=== PATIENT | male | born 1955 | race Caucasian/White ===

== ENCOUNTER 2019-05-19 15:07 | Emergency (ER) | payer BC ==
--- NOTE | 2019-05-19 15:40 | ER Document Report ---
ED Medical Screen (RME) - General Chief Complaint: Vomiting Stated Complaint: COUGHING UP BLOOD Time Seen by Provider: 05/19/19 15:37 Primary Care Provider: LISETH CANTU FNP [Primary Care Provider] - Follow up as needed Mode of Arrival: Wheelchair Information source: Relative Notes: at bedside giving history as patient seems very fatigued, patient has been coughing up blood for a couple of days now, worse today with a very large blood clot. Patient is never done this before. Patient is on Eliquis for A. fib and has a history of congestive heart failure. He was admitted in December at [facility] and had an endoscopy in February and a colonoscopy which revealed nothing per . TRAVEL OUTSIDE OF THE [place] IN LAST 30 DAYS: No - Related Data Allergies/Adverse Reactions: No Known Allergies Allergy (Verified 05/19/19 15:19) Past Medical History - General Information source: Patient, Relative - Past Medical History Cardiac Medical History: Reports: Hx Hypertension - Immunizations Hx Diphtheria, Pertussis, Tetanus Vaccination: No Review of Systems - Review of Systems Cardiovascular: See HPI Respiratory: See HPI Physical Exam - Vital signs Vitals: Temp Pulse Resp BP Pulse Ox 97.5 F 92 12 94/63 L 94 05/19/19 15:28 05/19/19 15:28 05/19/19 15:28 05/19/19 15:28 05/19/19 15:28 - Notes Notes: PHYSICAL EXAMINATION: GENERAL: Hill, in no acute distress. LUNGS: CTAB and equal. No wheezes rales or rhonchi. Course - Vital Signs Vital signs: Temp Pulse Resp BP Pulse Ox 97.5 F 92 12 94/63 L 94 05/19/19 15:28 05/19/19 15:28 05/19/19 15:28 05/19/19 15:28 05/19/19 15:28 Doctor's Discharge - Discharge Referrals: LISETH CANTU FNP [Primary Care Provider] - Follow up as needed
[2019-05-19 16:40] LABS: ABSOLUTE EOSINOPHILS # (AUTO) 0.1 10^3/uL (0.0-0.6); ABSOLUTE LYMPHOCYTES (AUTO) 0.8 10^3/uL (0.5-4.7); ABSOLUTE MONOCYTES (AUTO) 0.6 10^3/uL (0.1-1.4); ABSOLUTE NEUT (AUTO) 3.7 10^3/uL (1.7-8.2); BASOPHILS % (AUTO) 0.8 % (0-2); EOSINOPHILS % (AUTO) 1.6 % (0-6); HEMOGLOBIN 11.5 g/dL (13.5-17.0); LYMPHOCYTES % (AUTO) 15.3 % (13-45); MEAN CORPUSCULAR HGB CONC 33.6 g/dL (32.0-36.0); MEAN CORPUSCULAR VOLUME 92 fl (80-97); PLATELET COUNT 272 10^3/uL (150-450); RED CELL DISTRIBUTION WIDTH 18.5 % (11.5-14.0); SEGMENTED NEUTROPHILS % (AUTO) 70.3 % (42-78); TOTAL CELLS COUNTED % (AUTO) 100 %; WHITE BLOOD COUNT 5.2 10^3/uL (4.0-10.5)
[2019-05-19 16:45] LABS: INTERNATIONAL RATION (INR) 2.14; PROTHROMBIN TIME 24.3 SEC (11.4-15.4)
[2019-05-19 16:46] LABS: PARTIAL THROMBOPLASTIN TIME 33.8 SEC (23.5-35.8)
[2019-05-19] MEDS ORDERED: NORMAL SALINE 500 ML IV ONE (16:51)
--- NOTE | 2019-05-19 17:08 | RADIOLOGY REPORT (SQ) ---
EXAM DESCRIPTION: CHEST 2 VIEWS COMPLETED DATE/TIME: 05/19/2019 4:59 pm REASON FOR STUDY: coughing up blood clots COMPARISON: 07/27/2013 EXAM PARAMETERS: NUMBER OF VIEWS: two views TECHNIQUE: Digital Frontal and Lateral radiographic views of the chest acquired. RADIATION DOSE: NA LIMITATIONS: none FINDINGS: LUNGS AND PLEURA: Hyperexpansion of the lungs. Chronic pleural thickening. Ill-defined o pacification in both lung bases. MEDIASTINUM AND HILAR STRUCTURES: No masses or contour abnormalities. HEART AND VASCULAR STRUCTURES: Cardiomegaly. Pericardial calcifications. BONES: No acute findings. HARDWARE: None in the chest. OTHER: No other significant finding. IMPRESSION: Cardiomegaly without juventino pulmonary edema. Cannot exclude a limited infiltrate in eith er lower lobe. Chronic lung changes. TECHNICAL DOCUMENTATION: JOB ID: [id number] [employer]- All Rights Reserved Reading location - IP/workstation name: [email or web address]
[2019-05-19 19:03] LABS: ALANINE AMINOTRANSFERASE 18 U/L (21-72); ALBUMIN 3.3 g/dL (3.5-5.0); ALKALINE PHOSPHATASE 220 U/L (38-126); ASPARTATE AMINO TRANSFERASE 30 U/L (17-59); BILIRUBIN,DIRECT 1.1 mg/dL (0.0-0.4); BILIRUBIN,TOTAL 2.1 mg/dL (0.2-1.3); BLOOD UREA NITROGEN 31 mg/dL (7-20); CALCIUM 9.2 mg/dL (8.4-10.2); CHLORIDE 85 mmol/L (98-107); GLUCOSE 109 mg/dL (75-110); TOTAL PROTEIN 8.2 g/dL (6.3-8.2)
[2019-05-19 19:10] LABS: ANION GAP 9 (5-19)
[2019-05-19 19:18] LABS: POTASSIUM 3.3 mmol/L (3.6-5.0)
[2019-05-19 19:20] LABS: CARBON DIOXIDE 40 mmol/L (22-30)
[2019-05-19 20:16] LABS: VENOUS BLOOD BASE EXCESS 13.6 mmol/L; VENOUS BLOOD HCO3 39.3 mmol/L (20-32); VENOUS BLOOD PH 7.47 (7.30-7.42)
--- NOTE | 2019-05-19 20:33 | RADIOLOGY REPORT (SQ) ---
EXAM DESCRIPTION: CT CHEST ANGIOGRAPHY WITHOUT THEN WITH IV CONTRAST COMPLETED DATE/TME: 05/19/2019 16:31 CLINICAL HISTORY: 64 years Male hemoptysis, smoker COMPARISON: None. TECHNIQUE: Contiguous axial images were obtained through the chest during the infusion of IV contrast. Reformatted images obtained. MIP reformatted images obtained. This exam was performed according to our department optimization program which includes automated exposure control, adjustment of the mA and/or kv according to patient size and/or use of iterative reconstruction technique. FINDINGS: The heart is enlarged. There is diffuse calcification of the pericardium. There is left atrial enlargement. Reflux of contrast is present into the inferior vena cava and the hepatic veins. There is calcified pleural plaquing bilaterally which may be related to asbestos-related pleural disease. Other etiology not excluded. Numerous calcified lymph nodes are present in the hilum and mediastinum. Enlarged pretracheal lymph node has a measurement of 2.4 cm short axis. Enlarged subcarinal lymph node has a measurement of 2.5 cm short axis. There is no evidence of pulmonary embolus. Pulmonary arteries are prominent with the left main pulmonary artery measuring 3 cm and the right measuring 2.8 cm. Findings may reflect pulmonary hypertension. Pleural thickening and bilateral pleural fluid collections. Interstitial infiltrate suggesting chronic interstitial infiltrate or fibrosis. Emphysematous changes are present. Scarring or atelectasis in the lung bases. Enlarged liver. Suspect splenic enlargement. 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 Pleural thickening and calcification with associated pleural effusions Enlarged mediastinal and hilar lymph nodes with some foci of calcification. Recommend follow-up Emphysematous change and interstitial infiltrate versus fibrosis. Possibility of developing edema is not excluded. Areas of rounded atelectasis or scarring suggested along the periphery of the chest Mildly enlarged liver and spleen
--- NOTE | 2019-05-19 21:00 | ER Document Report ---
Entered by VALERIE SUERO SCRIBE 05/19/19 1634 Acting as scribe for:PADMINI LAGUERRE DO ED General - General Chief Complaint: Vomiting Stated Complaint: COUGHING UP BLOOD Time Seen by Provider: 05/19/19 15:37 Primary Care Provider: LISETH CANTU FNP [NURSE PRACTITIONER] - Follow up as needed Mode of Arrival: Wheelchair Notes: Patient is a 64-year-old male presenting to the emergency department with complaint of spitting up blood, when asked further clarify he states that he has been coughing up a small amount of blood for the past 2 weeks but worsened today , today he has been coughing up large blood clots. Patient states that he is had his cough for some time now, is gradually getting worse especially since about 2 weeks ago. Patient was at [facility] in December and had a large work-up but states he did not have a CT scan at that time. Patient has had several outpatient visits since then. TRAVEL OUTSIDE OF THE [place] IN LAST 30 DAYS: No - Related Data Allergies/Adverse Reactions: tramadol Allergy (Verified 05/19/19 15:45) VOMITING Past Medical History - General Information source: Patient, Relative - Social History Smoking Status: Former Smoker - Quit in December. Cigarette use (# per day): No Chew tobacco use (# tins/day): No Frequency of alcohol use: None Drug Abuse: None Family History: Hypertension Patient has suicidal ideation: No Patient has homicidal ideation: No - Past Medical History Cardiac Medical History: Reports: Hx Congestive Heart Failure, Hx Hypertension - Immunizations Hx Diphtheria, Pertussis, Tetanus Vaccination: No Review of Systems - Review of Systems Constitutional: See HPI, Weakness, Weight loss - Unintentional weight loss EENT: No symptoms reported Cardiovascular: No symptoms reported Respiratory: See HPI, Cough, Hemoptysis Gastrointestinal: No symptoms reported Genitourinary: No symptoms reported Male Genitourinary: No symptoms reported Musculoskeletal: See HPI, Leg swelling - Chronic leg swelling right greater than left which has been improving over the past few days. Skin: No symptoms reported Hematologic/Lymphatic: No symptoms reported Neurological/Psychological: No symptoms reported -: Yes All other systems reviewed and negative Physical Exam - Vital signs Vitals: Temp Pulse Resp BP Pulse Ox 97.5 F 92 12 94/63 L 94 05/19/19 15:28 05/19/19 15:28 05/19/19 15:28 05/19/19 15:28 05/19/19 15:28 Interpretation: Hypotensive - Notes Notes: PHYSICAL EXAM GENERAL: Alert, interacts well. No acute distress. Cachectic HEAD: Normocephalic, atraumatic. EYES: Pupils equal, round, and reactive to light. Extraocular movements intact. ENT: Oral mucosa dry, tongue midline. NECK: Full range of motion. Supple. Trachea midline. LUNGS: Crackles present at the bases bilaterally. Diminished lung sounds on the right side. No wheezes or rhonchi. No respiratory distress. HEART: Regular rate and rhythm. No murmurs, gallops, or rubs. ABDOMEN: Soft, non-tender. Non-distended. Bowel sounds present in all 4 quadrants. No guarding, rigidity, or rebound. EXTREMITIES: Moves all 4 extremities spontaneously. +1 pitting edema left lower extremity. +2 pitting edema right lower extremity. Radial and dorsalis pedis pulses 2/4 bilaterally. No cyanosis. NEUROLOGICAL: Alert and oriented x3. Normal speech. Biceps and patellar DTRs 2+ bilaterally. PSYCH: Normal affect, normal mood. SKIN: Warm, dry. Slightly jaundiced. Course - Re-evaluation Re-evalutation: 05/19/19 20:11 CBC shows mild anemia with a hemoglobin 11.5, platelets normal, INR prolonged at 2.14, CMP shows slight low sodium 134, slight low potassium at 3.3, CO2 elevated at 40, total and direct bilirubin both elevated at 2.1 and 1.1 respectively, alkaline phosphatase elevated at 220, chest x-ray shows cardiomegaly without juventino pulmonary edema, cannot exclude a limited infiltrate in either lower lobe. Patient has been somewhat hypotensive so he is being gently hydrated with 500 mL's of normal saline now that we know he does not emergently need a blood transfusion despite this hemoptysis. CT angiogram of the chest has been performed to look for pulmonary embolism causing his hemoptysis or possibly a tumor. I am concerned for the possibility of cancer given his cachexia, unintentional weight loss and smoking history. 05/19/19 20:12 Since arriving patient has become hypoxic into the 80s so he has been started on 2-1/2 L via nasal cannula and doing well. 05/19/19 20:56 CT angiogram of the chest shows no evidence of pulmonary embolus, there is diffuse calcification of the pericardium with left atrial enlargement, calcified pleural plaquing bilaterally may be related to asbestos-related pleural disease, there are some enlarged peritracheal lymph nodes, chronic interstitial lung disease. Family was advised of the importance of following up with primary care physician and pulmonology as an outpatient for these enlarged lymph nodes. They are aware that I am afraid that the patient may have cancer that I just cannot find at this time. Patient's mild hypoxia has resolved, I have taken him off of oxygen and the lowest he is gotten is 91% on room air. Patient does not walk more than 5 maybe 10 steps at home. Family is not interested in a trial of ambulation. Family will follow-up as an outpatient. Discharged home. - Vital Signs Vital signs: Temp Pulse Resp BP Pulse Ox 97.5 F 92 12 94/63 L 94 05/19/19 15:28 05/19/19 15:28 05/19/19 15:28 05/19/19 15:28 05/19/19 15:28 - Laboratory Result Diagrams: 05/19/19 16:05 05/19/19 18:35 Laboratory results interpreted by me: 05/19/19 05/19/19 05/19/19 16:05 16:05 18:35 RBC 3.70 L Hgb 11.5 L Hct 34.0 L RDW 18.5 H PT 24.3 H VBG pH VBG HCO3 Sodium 134.0 L Potassium 3.3 L Chloride 85 L Carbon Dioxide 40 H* BUN 31 H Total Bilirubin 2.1 H Direct Bilirubin 1.1 H ALT 18 L Alkaline Phosphatase 220 H Albumin 3.3 L 05/19/19 19:59 RBC Hgb Hct RDW PT VBG pH 7.47 H VBG HCO3 39.3 H Sodium Potassium Chloride Carbon Dioxide BUN Total Bilirubin Direct Bilirubin ALT Alkaline Phosphatase Albumin Discharge - Discharge Clinical Impression: Hemoptysis, Unintentional weight loss Condition: Stable Disposition: HOME, SELF-CARE Additional Instructions: Hemoptysis Hemoptysis (coughing up blood) can occur with many different diseases. Most commonly, it's due to an infection such as bronchitis. Today I do not see any signs of infection. You do have some enlarged lymph nodes and calcified lymph nodes on your CAT scan, these need to be followed up as an outpatient to rule out cancer. You did not have significant anemia today, this means you did not need to have new blood transfusion. It is very important that you follow-up with coat presser as an outpatient. I have given you Dr. Rosario's contact information. Please return if you cough up a couple or more of blood within approximately 1 hour. Referrals: LISETH CANTU FNP [NURSE PRACTITIONER] - Follow up as needed PEÑA OLIVER MD [Primary Care Provider] - Follow up as needed WILSON ROSARIO MD [ACTIVE STAFF] - Follow up as needed I personally performed the services described in the documentation, reviewed and edited the documentation which was dictated to the scribe in my presence, and it accurately records my words and actions.
[2019-05-19 21:35] VITALS: BP 101/71
== END 2019-05-19 21:56 | disposition home or self-care (01) ==
LOC: ER 15:07
DX: R04.2 Hemoptysis (principal); R11.10 Vomiting, unspecified; M79.89 Other specified soft tissue disorders; Z87.891 Personal history of nicotine dependence; I50.9 Heart failure, unspecified; I11.0 Hypertensive heart disease with heart failure
CPT/HCPCS: 99285; 86900; 86901; 36415; 86850; 85025; 85610; 85730; 80053; 82803; 71046; 71275; J7040

== ENCOUNTER 2019-05-23 23:05 | Inpatient (IN) | payer BC ==
[2019-05-23] MEDS ORDERED: RINGERS SOLUTION,LACTATED 1,000 ML IV ONE (23:09)
[2019-05-23] MEDS ORDERED: VANCOMYCIN HCL INJ 1000 MG VIAL IV ONE (23:23)
[2019-05-23 23:29] LABS: HEMATOCRIT 33.6 % (37.9-51.0); HEMOGLOBIN 11.1 g/dL (13.5-17.0); MEAN CORPUSCULAR HEMOGLOBIN 30.6 pg (27.0-33.4); MEAN CORPUSCULAR VOLUME 93 fl (80-97); PLATELET COUNT 185 10^3/uL (150-450); RED BLOOD COUNT 3.63 10^6/uL (4.35-5.55); RED CELL DISTRIBUTION WIDTH 18.3 % (11.5-14.0); VENOUS BLOOD BASE EXCESS 8.6 mmol/L; VENOUS BLOOD HCO3 33.5 mmol/L (20-32); VENOUS BLOOD PCO2 47.9 mmHg (35-63); VENOUS BLOOD PH 7.46 (7.30-7.42); WHITE BLOOD COUNT 13.5 10^3/uL (4.0-10.5)
[2019-05-23] MEDS: NOREPINEPHRINE BITARTRATE INJ/PF 4 MG/4 ML SDV IV ONE (23:34)
[2019-05-23] MEDS: DEXTROSE 5%-WATER 250 ML with NOREPINEPHRINE BITARTRATE 4 MG IV PRN ×2 (23:34)
[2019-05-23 23:43] LABS: ABSOLUTE LYMPHOCYTES# (MANUAL) 0.5 10^3/uL (0.5-4.7); BAND NEUTROPHILS % (MANUAL) 7 % (3-5); BASOPHILS % (MANUAL) 0 % (0-2); EOSINOPHILS % (MANUAL) 0 % (0-6); LYMPHOCYTES % (MANUAL) 4 % (13-45); MONOCYTES % (MANUAL) 0 % (3-13); SEGMENTED NEUTROPHILS % (MAN) 89 % (42-78); TOTAL CELLS COUNTED 100
[2019-05-23 23:44] LABS: PLATELET COMMENT ADEQUATE
[2019-05-23 23:45] LABS: ALANINE AMINOTRANSFERASE 24 U/L (21-72); ALKALINE PHOSPHATASE 222 U/L (38-126); ANION GAP 8 (5-19); ANISOCYTOSIS 2+; ASPARTATE AMINO TRANSFERASE 47 U/L (17-59); BILIRUBIN,DIRECT 1.5 mg/dL (0.0-0.4); BILIRUBIN,TOTAL 2.5 mg/dL (0.2-1.3); BLOOD UREA NITROGEN 43 mg/dL (7-20); CARBON DIOXIDE 32 mmol/L (22-30); CHLORIDE 97 mmol/L (98-107); GLUCOSE 72 mg/dL (75-110); HYPOCHROMASIA SLIGHT; POIKILOCYTOSIS 1+; POLYCHROMASIA SLIGHT; POTASSIUM 3.9 mmol/L (3.6-5.0); TOTAL PROTEIN 7.6 g/dL (6.3-8.2)
[2019-05-23] MEDS ORDERED: CEFTRIAXONE 1 GM/D5W RTU 1 GM/50 ML RTUPB IV ONE (23:45)
--- NOTE | 2019-05-23 23:47 | ER Document Report ---
ED General - General Stated Complaint: CHEST PAIN Time Seen by Provider: 05/23/19 23:06 Primary Care Provider: PEÑA OLIVER MD [Primary Care Provider] - Follow up as needed Mode of Arrival: Medic Information source: Patient, Relative, Emergency Med Personnel Cannot obtain history due to: Altered mental status Notes: 64-year-old male with atrial fibrillation, hypertension, congestive heart failure presents via EMS from home with concern for altered mental status per the . EMS reports that upon their arrival patient was febrile with a temperature of 103.7. reports that the patient was seen in the emergency department earlier in the week for hemoptysis. She reports that the patient has not been coughing up blood over the last few days. She states that she was gone from the house all day when she returned the patient was confused. TRAVEL OUTSIDE OF THE [place] IN LAST 30 DAYS: No - HPI Onset: Just prior to arrival Onset/Duration: Sudden Quality of pain: No pain Severity: None Pain Level: Denies Associated symptoms: Nonproductive cough, Fever. denies: Diarrhea, Nausea, Vomiting Exacerbated by: Denies Relieved by: Denies Similar symptoms previously: No Recently seen / treated by doctor: Yes - Related Data Allergies/Adverse Reactions: tramadol Allergy (Verified 05/19/19 15:45) VOMITING Past Medical History - General Information source: Relative, Emergency Med Personnel - Social History Smoking Status: Current Every Day Smoker Cigarette use (# per day): Yes - 20 Frequency of alcohol use: None Drug Abuse: None Lives with: Spouse/Significant other Family History: Hypertension - Past Medical History Cardiac Medical History: Reports: Hx Congestive Heart Failure, Hx Hypertension Renal/ Medical History: Denies: Hx Peritoneal Dialysis - Immunizations Hx Diphtheria, Pertussis, Tetanus Vaccination: No Review of Systems - Review of Systems -: Yes ROS unobtainable due to patient's medical condition Physical Exam - Vital signs Vitals: Resp Pulse Ox 34 H 92 05/23/19 23:10 05/23/19 23:10 - Notes Notes: PHYSICAL EXAMINATION: GENERAL: Ill-appearing, cachectic, mild distress HEAD: Atraumatic, normocephalic. EYES: Pupils equal round and reactive to light, extraocular movements intact, sclera anicteric, conjunctiva are normal. ENT: Nares patent, oropharynx clear without exudates. Dry mucous membranes. NECK: Normal range of motion, supple without lymphadenopathy LUNGS: Coarse breath sounds bilaterally. Increased work of breathing, accessory muscle use. HEART: Tachycardic, regular rhythm. ABDOMEN: Soft, nontender, nondistended abdomen. No guarding, no rebound. No m asses appreciated. Musculoskeletal: Normal range of motion, 1+ edema. No cyanosis. NEUROLOGICAL: GCS 14 PSYCH: Confused. SKIN: Darkened discoloration of the lower extremities bilaterally. 1+ edema Course - Re-evaluation Re-evalutation: 05/24/19 04:04 Laboratory 05/23/19 05/23/19 05/23/19 23:10 23:10 23:10 WBC 13.5 H RBC 3.63 L Hgb 11.1 L Hct 33.6 L MCV 93 MCH 30.6 MCHC 33.0 RDW 18.3 H Plt Count 185 Total Counted 100 Seg Neutrophils % Not Reportable Seg Neuts % (Manual) 89 H Band Neutrophils % 7 H Lymphocytes % Not Reportable Lymphocytes % (Manual) 4 L Monocytes % Not Reportable Monocytes % (Manual) 0 L Eosinophils % Not Reportable Eosinophils % (Manual) 0 Basophils % Not Reportable Basophils % (Manual) 0 Absolute Neutrophils Not Reportable Abs Neuts (Manual) 13.0 H Absolute Lymphocytes Not Reportable Abs Lymphs (Manual) 0.5 Absolute Monocytes Not Reportable Abs Monocytes (Manual) 0.0 L Absolute Eosinophils Not Reportable Absolute Eos (Manual) 0.0 Absolute Basophils Not Reportable Abs Basophils (Manual) 0.0 Platelet Comment ADEQUATE Polychromasia SLIGHT Hypochromasia SLIGHT Poikilocytosis 1+ Anisocytosis 2+ PT 35.2 H INR 3.41 VBG pH VBG pCO2 VBG HCO3 VBG Base Excess Sodium 137.0 Potassium 3.9 Chloride 97 L Carbon Dioxide 32 H Anion Gap 8 BUN 43 H Creatinine 1.43 H Est GFR ( Amer) > 60 Est GFR (Non-Af Amer) 50 L Glucose 72 L Lactic Acid Calcium 9.0 Total Bilirubin 2.5 H Direct Bilirubin 1.5 H Neonat Total Bilirubin Not Reportable Neonat Direct Bilirubin Not Reportable Neonat Indirect Bili Not Reportable AST 47 ALT 24 Alkaline Phosphatase 222 H Troponin I NT-Pro-B Natriuret Pep Total Protein 7.6 Albumin 3.0 L Urine Color Urine Appearance Urine pH Ur Specific Fellows Urine Protein Urine Glucose (UA) Urine Ketones Urine Blood Urine Nitrite Urine Bilirubin Urine Urobilinogen Ur Leukocyte Esterase Urine WBC (Auto) Urine RBC (Auto) U Hyaline Cast (Auto) Squamous Epi Cells Auto Urine Mucus (Auto) Urine Ascorbic Acid 05/23/19 05/23/19 05/23/19 23:10 23:10 23:10 WBC RBC Hgb Hct MCV MCH MCHC RDW Plt Count Total Counted Seg Neutrophils % Seg Neuts % (Manual) Band Neutrophils % Lymphocytes % Lymphocytes % (Manual) Monocytes % Monocytes % (Manual) Eosinophils % Eosinophils % (Manual) Basophils % Basophils % (Manual) Absolute Neutrophils Abs Neuts (Manual) Absolute Lymphocytes Abs Lymphs (Manual) Absolute Monocytes Abs Monocytes (Manual) Absolute Eosinophils Absolute Eos (Manual) Absolute Basophils Abs Basophils (Manual) Platelet Comment Polychromasia Hypochromasia Poikilocytosis Anisocytosis PT INR VBG pH 7.46 H VBG pCO2 47.9 VBG HCO3 33.5 H VBG Base Excess 8.6 Sodium Potassium Chloride Carbon Dioxide Anion Gap BUN Creatinine Est GFR ( Amer) Est GFR (Non-Af Amer) Glucose Lactic Acid 2.9 H Calcium Total Bilirubin Direct Bilirubin Neonat Total Bilirubin Neonat Direct Bilirubin Neonat Indirect Bili AST ALT Alkaline Phosphatase Troponin I 0.129 NT-Pro-B Natriuret Pep 3970 H Total Protein Albumin Urine Color Urine Appearance Urine pH Ur Specific Fellows Urine Protein Urine Glucose (UA) Urine Ketones Urine Blood Urine Nitrite Urine Bilirubin Urine Urobilinogen Ur Leukocyte Esterase Urine WBC (Auto) Urine RBC (Auto) U Hyaline Cast (Auto) Squamous Epi Cells Auto Urine Mucus (Auto) Urine Ascorbic Acid 05/23/19 05/24/19 23:40 01:50 WBC RBC Hgb Hct MCV MCH MCHC RDW Plt Count Total Counted Seg Neutrophils % Seg Neuts % (Manual) Band Neutrophils % Lymphocytes % Lymphocytes % (Manual) Monocytes % Monocytes % (Manual) Eosinophils % Eosinophils % (Manual) Basophils % Basophils % (Manual) Absolute Neutrophils Abs Neuts (Manual) Absolute Lymphocytes Abs Lymphs (Manual) Absolute Monocytes Abs Monocytes (Manual) Absolute Eosinophils Absolute Eos (Manual) Absolute Basophils Abs Basophils (Manual) Platelet Comment Polychromasia Hypochromasia Poikilocytosis Anisocytosis PT INR VBG pH VBG pCO2 VBG HCO3 VBG Base Excess Sodium Potassium Chloride Carbon Dioxide Anion Gap BUN Creatinine Est GFR ( Amer) Est GFR (Non-Af Amer) Glucose Lactic Acid Calcium Total Bilirubin Direct Bilirubin Neonat Total Bilirubin Neonat Direct Bilirubin Neonat Indirect Bili AST ALT Alkaline Phosphatase Troponin I 0.186 NT-Pro-B Natriuret Pep Total Protein Albumin Urine Color DARK YELLOW Urine Appearance SLIGHTLY-CLOUDY Urine pH 5.0 Ur Specific Fellows 1.015 Urine Protein NEGATIVE Urine Glucose (UA) NEGATIVE Urine Ketones TRACE H Urine Blood NEGATIVE Urine Nitrite NEGATIVE Urine Bilirubin SMALL H Urine Urobilinogen 4.0 H Ur Leukocyte Esterase NEGATIVE Urine WBC (Auto) 3 Urine RBC (Auto) 2 U Hyaline Cast (Auto) 22 Squamous Epi Cells Auto <1 Urine Mucus (Auto) RARE Urine Ascorbic Acid NEGATIVE Chest X-Ray 05/23/19 23:09 IMPRESSION: Patchy bilateral opacities may relate to developing pneumonia. Head CT 05/23/19 23:26 IMPRESSION: No acute intracranial abnormality. Temp Pulse Resp BP Pulse Ox 99.0 F 92 24 H 96/52 L 97 05/24/19 03:21 05/24/19 01:05 05/24/19 03:21 05/24/19 03:21 05/24/19 03:21 05/24/19 04:05 64-year-old male with a history of CHF, hypertension, atrial fibrillation presents via EMS from home with complaint of altered mental status. Vital signs reviewed upon arrival and patient is febrile, tachycardic and hypotensive. Patient is in mild distress and has increased work of breathing. Patient is alert and oriented x1 which is not the patient's baseline. Resuscitation was initiated immediately upon arrival. 2 large bore IVs were placed and fluid resuscitation initiated. Bedside ultrasound was performed and showed no pericardial effusion but did show diffuse B-lines consistent with interstitial edema. Chest x-ray was obtained which showed patchy bilateral opacities which I believed to represent pneumonia. Patient did receive vancomycin, ceftriaxone. Patient's blood pressure still remained low despite fluid administration so Lev ophed was initiated at 5 mcg. Previous medical records and nursing notes reviewed. Patient was seen here in the emergency department 5 days prior to arrival for hemoptysis. CTA was performed at that time and showed no evidence of pulmonary embolism but did show cardiac enlargement with pericardial calcification and constrictive pericarditis as well as bilateral pleural effusions and multiple areas of enlarged lymph nodes. The physician at that time did express her concern for underlying cancer to the patient and his . Patient does have a almost 50-year smoking history and reports unintentional weight loss. Patient's blood pressure upon admission is 95/60 with a heart rate of 91. Patient was placed on BiPAP and he has been tolerating this well. Patient and were agreeable with admission at this time. CBC does show a leukocytosis with a bandemia. Lactate is elevated at 2.9. Troponin is elevated but patient now denies chest pain. This is likely due to patient's sepsis. Patient does have an elevated BNP. VBG unremarkable. Patient will be admitted to the ICU by Dr. Harper. Patient's primary care physician is Dr. Oliver. - Vital Signs Vital signs: Temp Pulse Resp BP Pulse Ox 99.0 F 92 24 H 96/52 L 97 05/24/19 03:21 05/24/19 01:05 05/24/19 03:21 05/24/19 03:21 05/24/19 03:21 - Laboratory Result Diagrams: 05/23/19 23:10 05/23/19 23:10 Laboratory results interpreted by me: 05/23/19 05/23/19 05/23/19 23:10 23:10 23:10 WBC 13.5 H RBC 3.63 L Hgb 11.1 L Hct 33.6 L RDW 18.3 H Seg Neuts % (Manual) 89 H Band Neutrophils % 7 H Lymphocytes % (Manual) 4 L Monocytes % (Manual) 0 L Abs Neuts (Manual) 13.0 H Abs Monocytes (Manual) 0.0 L PT 35.2 H VBG pH VBG HCO3 Chloride 97 L Carbon Dioxide 32 H BUN 43 H Creatinine 1.43 H Est GFR (Non-Af Amer) 50 L Glucose 72 L Lactic Acid Total Bilirubin 2.5 H Direct Bilirubin 1.5 H Alkaline Phosphatase 222 H NT-Pro-B Natriuret Pep Albumin 3.0 L Urine Ketones Urine Bilirubin Urine Urobilinogen 05/23/19 05/23/19 05/23/19 23:10 23:10 23:10 WBC RBC Hgb Hct RDW Seg Neuts % (Manual) Band Neutrophils % Lymphocytes % (Manual) Monocytes % (Manual) Abs Neuts (Manual) Abs Monocytes (Manual) PT VBG pH 7.46 H VBG HCO3 33.5 H Chloride Carbon Dioxide BUN Creatinine Est GFR (Non-Af Amer) Glucose Lactic Acid 2.9 H Total Bilirubin Direct Bilirubin Alkaline Phosphatase NT-Pro-B Natriuret Pep 3970 H Albumin Urine Ketones Urine Bilirubin Urine Urobilinogen 05/23/19 23:40 WBC RBC Hgb Hct RDW Seg Neuts % (Manual) Band Neutrophils % Lymphocytes % (Manual) Monocytes % (Manual) Abs Neuts (Manual) Abs Monocytes (Manual) PT VBG pH VBG HCO3 Chloride Carbon Dioxide BUN Creatinine Est GFR (Non-Af Amer) Glucose Lactic Acid Total Bilirubin Direct Bilirubin Alkaline Phosphatase NT-Pro-B Natriuret Pep Albumin Urine Ketones TRACE H Urine Bilirubin SMALL H Urine Urobilinogen 4.0 H - Diagnostic Test Radiology reviewed: Image reviewed, Reports reviewed - EKG Interpretation by Me Rate: Tachycardia Rhythm: A.Fib [place]/QRS: Right axis deviation When compared to previous EKG there are: No significant change Critical Care Note - Critical Care Note Total time excluding time spent on procedures (mins): 45 - Minutes of critical care time spent in direct contact evaluating and reevaluating the patient, treating symptoms, reviewing labs and studies and speaking with family and cons ultants excluding any procedures Discharge - Discharge Clinical Impression: Tobacco dependence, Unintentional weight loss, Elevated troponin, Lactic acidosis Sepsis Qualifiers: Sepsis type: sepsis due to unspecified organism Qualified Code(s): A41.9 - Sep sis, unspecified organism Pneumonia Qualifiers: Pneumonia type: due to unspecified organism Laterality: bilateral Lung location: unspecified part of lung Qualified Code(s): J18.9 - Pneumonia, unspecified organism Hypotension Qualifiers: Hypotension type: unspecified hypotension type Qualified Code(s): I95.9 - Hypotension, unspecified Altered mental status Qualifiers: Altered mental status type: unspecified Qualified Code(s): R41.82 - Altered mental status, unspecified Leukocytosis Qualifiers: Leukocytosis type: bandemia Qualified Code(s): D72.825 - Bandemia Condition: Fair Disposition: ADMITTED INPATIENT Admitting Provider: [facility] Unit Admitted: ICU Referrals: PEÑA OLIVER MD [Primary Care Provider] - Follow up as needed
--- NOTE | 2019-05-23 23:48 | RADIOLOGY REPORT (SQ) ---
CLINICAL HISTORY: hypoxia COMPARISON: May 19, 2019 CT. TECHNIQUE: XR CHEST 1 VIEW 05/23/2019 11:09 PM CDT FINDINGS: The heart is enlarged. There are calcifications of the pericardium. There are patchy opacities throughout both lungs. There are bilateral pleural effusions. There is no pneumothorax. There are no acute osseous findings. IMPRESSION: Patchy bilateral opacities may relate to developing pneumonia.
[2019-05-23 23:51] LABS: INTERNATIONAL RATION (INR) 3.41; PROTHROMBIN TIME 35.2 SEC (11.4-15.4)
[2019-05-24] MEDS ORDERED: IPRATROPIUM/ALBUTEROL 0.5-2.5 MG/3 ML AMPUL NEB ONE (00:03)
[2019-05-24] MEDS ORDERED: METHYLPREDNISOLONE INJ 125 MG/2 ML SDV IV ONE (00:03)
[2019-05-24] MEDS ORDERED: FUROSEMIDE INJ/PF 20 MG/2 ML SDV IV ONE (00:04)
[2019-05-24] MEDS ORDERED: NORMAL SALINE 1000 ML 1,000 ML IV ONE (00:04)
[2019-05-24] MEDS ORDERED: KETOROLAC TROMETHAMINE INJ/PF 30 MG/1 ML SDV IV ONE (00:06)
[2019-05-24] MEDS ORDERED: KETOROLAC TROMETHAMINE INJ/PF 30 MG/1 ML SDV ONE (00:07)
[2019-05-24 00:08] LABS: TROPONIN I 0.129 ng/mL
[2019-05-24] MEDS: NOREPINEPHRINE BITARTRATE INJ/PF 4 MG/4 ML SDV IV ONE (00:26)
[2019-05-24 00:36] LABS: APPEARANCE,URINE SLIGHTLY-CLOUDY; BILIRUBIN,URINE SMALL (NEGATIVE); COLOR,URINE DARK YELLOW; GLUCOSE, URINE NEGATIVE (NEGATIVE); KETONES,URINE TRACE mg/dL (NEGATIVE); LEUKOCYTE ESTERASE,URINE NEGATIVE (NEGATIVE); NITRITE,URINE NEGATIVE (NEGATIVE); PROTEIN,URINE NEGATIVE (NEGATIVE); URINE SPECIFIC GRAVITY 1.015
--- NOTE | 2019-05-24 01:36 | RADIOLOGY REPORT (SQ) ---
CT head without contrast on 05/24/2019 at 1:03 AM CLINICAL INDICATION: Altered mental status TECHNIQUE: Multiple axial images are obtained throughout the head without the administration of contrast. This exam was performed according to our departmental dose-optimization program, which includes automated exposure control, adjustment of the mA and/or kV according to patient size and/or use of iterative reconstruction technique. Total DLP is 963.96 mGy*cm. COMPARISON: None FINDINGS: There is no hydrocephalus. There is no CT evidence of acute infarct. There is no hemorrhage. There are no abnormal extra-axial fluid collections. There is no mass, mass effect or midline shift. No bony abnormality is noted. IMPRESSION: No acute intracranial abnormality.
[2019-05-24] MEDS ORDERED: RINGERS SOLUTION,LACTATED 1,000 ML IV PRN (03:54)
[2019-05-24] MEDS ORDERED: DEXTROSE 5%-WATER 250 ML with PHENYLEPHRINE HCL 40 MG IV PRN ×2 (04:01)
[2019-05-24] MEDS ORDERED: PIPERACILLIN/TAZOBACTAM 4.5 GM VIAL IV PRN (04:07)
[2019-05-24 04:36] LABS: INTERNATIONAL RATION (INR) 3.36; PROTHROMBIN TIME 34.8 SEC (11.4-15.4)
[2019-05-24 04:37] LABS: PARTIAL THROMBOPLASTIN TIME 43.3 SEC (23.5-35.8)
[2019-05-24 04:51] LABS: PHOSPHORUS 3.8 mg/dL (2.5-4.5)
[2019-05-24 05:07] LABS: FREE T4 (FREE THYROXINE) 2.18 ng/dL (0.78-2.19)
[2019-05-24 05:38] LABS: URINE AMPHETAMINES SCREEN NEGATIVE; URINE BARBITURATES SCREEN NEGATIVE; URINE BENZODIAZEPINES SCREEN NEGATIVE; URINE COCAINE SCREEN NEGATIVE; URINE MARIJUANA (THC) SCREEN NEGATIVE; URINE METHADONE SCREEN NEGATIVE; URINE PHENCYCLIDINE SCREEN NEGATIVE
[2019-05-24 05:56] LABS: CREATINE KINASE MB 0.77 ng/mL (<4.55); TROPONIN I 0.208 ng/mL
[2019-05-24] MEDS ORDERED: PIPERACILLIN SODIUM/TAZOBACTAM 4.5 GM in NORMAL SALINE 100 ML IV SCH (06:00)
--- NOTE | 2019-05-24 06:19 | RADIOLOGY REPORT (SQ) ---
EXAM: CT chest without IV contrast CLINICAL DATA: 64-year-old male with suspected pneumonia TECHNICAL DATA: Axial CT imaging of the chest was performed without intravenous contrast. Sagittal and coronal reconstructed images were then performed. The CT study is performed according to ALARA (as low as reasonably achievable) or ALARA/IMAGE GENTLY, with automatic adjustment of mA and/or kV according to patient size. Performed on: 05/24/2019 at 5:41 AM Comparison: CT chest performed on 05/19/2019. FINDINGS: CT CHEST: Lungs: The lungs are hyperinflated. There is calcified pleural plaques bilaterally which may be due to asbestos related pleural disease. There is chronic pleural thickening and there is mild patchy bibasilar opacification similar when compared to the prior study which may be secondary to fibrosis and/or atelectasis. No new focal parenchymal abnormalities are identified. There is no evidence of a pneumothorax. No definite pleural effusion identified. Heart: The heart is enlarged. Again demonstrated is extensive pericardial calcification and marked enlargement of the left atrium. There is no pericardial effusion. Mediastinum: Again demonstrated is enlargement of the pulmonary artery trunk and main pulmonary arteries relative to the thoracic aorta. Underlying pulmonary artery hypertension is a consideration. There are atherosclerotic calcifications along the thoracic aorta. Bones:No acute osseous abnormalities are identified. Soft tissues:No focal soft tissue abnormalities are identified. Lymphadenopathy: Again demonstrated is an enlarged partially calcified pretracheal lymph node as well as multiple additional partially calcified mediastinal and hilar lymph nodes. Upper abdomen: No acute abnormalities are identified. IMPRESSION: 1. Overall, no significant change when compared to the prior study performed on 05/19/2019. 2. Bilateral pleural calcification and pleural thickening which may be due to underlying asbestos-related pleural disease. 3. Patchy bibasilar opacification likely due to scarring and/or atelectasis. No new infiltrate is identified since the prior study. 4. 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 There is also cardiomegaly with marked left atrial enlargement. 5. Partially calcified mediastinal and hilar lymph nodes. 6. Hyperinflation of the lungs.
[2019-05-24 06:31] LABS: ARTERIAL BLOOD BASE EXCESS 3.1 mmol/L; ARTERIAL BLOOD H2CO3 1.39 mmol/L (1.05-1.35); ARTERIAL BLOOD HCO3 28.4 mmol/L (20-24); ARTERIAL BLOOD O2 SATURATION 98.3 % (94-98); ARTERIAL BLOOD PCO2 46.1 mmHg (35-45); ARTERIAL BLOOD PH 7.41 (7.35-7.45); ARTERIAL BLOOD PO2 119.6 mmHg (80-100); ARTERIAL BLOOD TOTAL CO2 29.8 mmol/L (23-27)
[2019-05-24 06:37] LABS: ARTERIAL BLOOD FIO2 30%
[2019-05-24] MEDS ORDERED: NOREPINEPHRINE BITARTRATE INJ/PF 4 MG/4 ML SDV IV ONE (07:39)
[2019-05-24] MEDS: DEXTROSE 5%-WATER 250 ML with NOREPINEPHRINE BITARTRATE 4 MG IV PRN ×6 (07:46→21:00)
--- NOTE | 2019-05-24 10:38 | EKG REPORT ---
SEVERITY:- ABNORMAL ECG - ATRIAL FIBRILLATION ABERRANT COMPLEX, POSSIBLY SUPRAVENTRICULAR RIGHT AXIS DEVIATION : Confirmed by: Eamon Fulton 24-May-2019 10:37:27
[2019-05-24 10:49] LABS: CREATINE KINASE MB 0.94 ng/mL (<4.55)
[2019-05-24 10:56] LABS: TROPONIN I 0.148 ng/mL
[2019-05-24] MEDS: PIPERACILLIN SODIUM/TAZOBACTAM 4.5 GM in NORMAL SALINE 100 ML IV SCH ×3 (11:10→20:54)
--- NOTE | 2019-05-24 12:03 | PDOC H&P ---
History of Present Illness Admission Date/PCP: 05/24/19 04:11 PEÑA OLIVER MD History of Present Illness: ZACH MIRANDA SR is a 64 year old male he came to the emergency room last night with his family for evaluation of altered mental status, fever with a temperature of 103.7. 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 also found was numerous calcified lymph nodes in the area of the mediastinum, enlarged subcarinal lymph node there was no pulmonary embolus there was interstitial infiltrate that suggest chronic interstitial fibrosis also severe emphysema ,in the emergency room at the time he was evaluated and discharged for follow-up with pulmonary patient presented with sepsis picture with fever low, blood pressure, leukocytosis ,lactic acidosis CT chest without contrast was obtained, it demonstrated hyperinflated lung also found was calcified pleural plaque, chronic pleural thickening overall no change from the last CT chest angiography that was done on 05/19/2019 there was no infiltrate to suggest pneumonia no history could be obtained from this patient because he is obtunded, respiratory is supported with noninvasive positive pressure ventilation, BiPAP. Patient's and children also admitted to history of unintentional weight loss. I had a long discussion with patient's family about prognosis and patient's condition. The urine dipstick suggest pyuria he has sepsis picture but I am not sure of the source of the infection, the CT chest did not demonstrate any new infiltrate that would suggest pneumonia, the urinalysis is not overly abnormal, the abdomen is soft, patient is a heavy smoker, cannot completely rule out endobronchial lesion, endobronchial cancer, the impression I got from the family is that they do not want aggressive therapeutic option, is a DNR status at this time, we will consult with pulmonary. The also gives the impression that the blood pressure has been low for a long time, he has acute kidney injury Past Medical History Cardiac Medical History: Reports: Atrial Fibrillation, Congestive Heart Failure, Hypertension Pulmonary Medical History: Reports: Bronchitis, Chronic Obstructive Pulmonary Disease (COPD), Respiratory Failure Social History Lives with: Spouse/Significant other Smoking Status: Current Every Day Smoker Cigarettes Packs Per Day: 1 Frequency of Alcohol Use: None Hx Recreational Drug Use: No Family History Family History: Hypertension Parental Family History Reviewed: Yes Children Family History Reviewed: Yes Sibling(s) Family History Reviewed.: Yes Medication/Allergy Home Medications: Apixaban [Eliquis 5 mg Tablet] 5 mg PO BID 05/24/19 Cholecalciferol (Vitamin D3) [D3-2000] 2,000 unit PO DAILY 05/24/19 Flecainide Acetate [Tambocor 100 Mg Tablet] 50 mg PO Q12H 05/24/19 Furosemide [Lasix 40 mg Tablet] 40 mg PO BID 05/24/19 Metolazone [Zaroxolyn 5 Mg Tablet] 5 mg PO BID 05/24/19 Metoprolol Succinate [Toprol Xl 25 mg Tab.sr] 12.5 mg PO DAILY 05/24/19 Omeprazole 40 mg PO DAILY 05/24/19 Potassium Chloride [Klor-Con M20] 40 meq PO BID 05/24/19 Allergies/Adverse Reactions: tramadol Allergy (Verified 05/19/19 15:45) VOMITING Review of Systems ROS unobtainable: Due to mental status Physical Exam Vital Signs: Temp Pulse Resp BP Pulse Ox 97.0 F 80 13 95/62 L 99 05/24/19 10:00 05/24/19 10:00 05/24/19 11:05 05/24/19 10:00 05/24/19 11:05 Intake & Output 05/23/19 05/24/19 05/25/19 06:59 06:59 06:59 Intake Total 2127 173 Output Total 55 27 Balance 2072 146 Weight 67.7 kg General appearance: PRESENT: other - Patient on noninvasive positive pressure ventilation BiPAP Head exam: PRESENT: atraumatic, normocephalic Ear exam: PRESENT: normal external ear exam Mouth exam: PRESENT: moist, tongue midline Neck exam: PRESENT: full ROM Respiratory exam: PRESENT: rhonchi Cardiovascular exam: PRESENT: RRR, +S1, +S2 Vascular exam: PRESENT: normal capillary refill GI/Abdominal exam: PRESENT: normal bowel sounds, soft Rectal exam: PRESENT: deferred Neurological exam: PRESENT: other - Stuporous but arousable Skin exam: PRESENT: dry, intact, warm Results Laboratory Results: 05/23/19 23:10 05/23/19 23:10 05/23/19 05/23/19 05/23/19 23:10 23:10 23:10 WBC 13.5 H RBC 3.63 L Hgb 11.1 L Hct 33.6 L MCV 93 MCH 30.6 MCHC 33.0 RDW 18.3 H Plt Count 185 Seg Neutrophils % Not Reportable Lymphocytes % Not Reportable Monocytes % Not Reportable Eosinophils % Not Reportable Basophils % Not Reportable Absolute Neutrophils Not Reportable Absolute Lymphocytes Not Reportable Absolute Monocytes Not Reportable Absolute Eosinophils Not Reportable Absolute Basophils Not Reportable Carbonic Acid HCO3/H2CO3 Ratio ABG pH ABG pCO2 ABG pO2 ABG HCO3 ABG O2 Saturation ABG Base Excess VBG pH VBG pCO2 VBG HCO3 VBG Base Excess FiO2 Sodium 137.0 Potassium 3.9 Chloride 97 L Carbon Dioxide 32 H Anion Gap 8 BUN 43 H Creatinine 1.43 H Est GFR ( Amer) > 60 Est GFR (Non-Af Amer) 50 L Glucose 72 L Lactic Acid 2.9 H Calcium 9.0 Phosphorus Total Bilirubin 2.5 H AST 47 ALT 24 Alkaline Phosphatase 222 H Ammonia Total Protein 7.6 Albumin 3.0 L Amylase Lipase TSH Free T4 Urine Color Urine Appearance Urine pH Ur Specific [place] Urine Protein Urine Glucose (UA) Urine Ketones Urine Blood Urine Nitrite Ur Leukocyte Esterase Urine WBC (Auto) Urine RBC (Auto) 05/23/19 05/23/19 05/24/19 23:10 23:40 04:10 WBC RBC Hgb Hct MCV MCH MCHC RDW Plt Count Seg Neutrophils % Lymphocytes % Monocytes % Eosinophils % Basophils % Absolute Neutrophils Absolute Lymphocytes Absolute Monocytes Absolute Eosinophils Absolute Basophils Carbonic Acid HCO3/H2CO3 Ratio ABG pH ABG pCO2 ABG pO2 ABG HCO3 ABG O2 Saturation ABG Base Excess VBG pH 7.46 H VBG pCO2 47.9 VBG HCO3 33.5 H VBG Base Excess 8.6 FiO2 Sodium Potassium Chloride Carbon Dioxide Anion Gap BUN Creatinine Est GFR ( Amer) Est GFR (Non-Af Amer) Glucose Lactic Acid 1.7 Calcium Phosphorus Total Bilirubin AST ALT Alkaline Phosphatase Ammonia Total Protein Albumin Amylase Lipase TSH Free T4 Urine Color DARK YELLOW Urine Appearance SLIGHTLY-CLOUDY Urine pH 5.0 Ur Specific [place] 1.015 Urine Protein NEGATIVE Urine Glucose (UA) NEGATIVE Urine Ketones TRACE H Urine Blood NEGATIVE Urine Nitrite NEGATIVE Ur Leukocyte Esterase NEGATIVE Urine WBC (Auto) 3 Urine RBC (Auto) 2 05/24/19 05/24/19 05/24/19 04:10 04:10 04:10 WBC RBC Hgb Hct MCV MCH MCHC RDW Plt Count Seg Neutrophils % Lymphocytes % Monocytes % Eosinophils % Basophils % Absolute Neutrophils Absolute Lymphocytes Absolute Monocytes Absolute Eosinophils Absolute Basophils Carbonic Acid HCO3/H2CO3 Ratio ABG pH ABG pCO2 ABG pO2 ABG HCO3 ABG O2 Saturation ABG Base Excess VBG pH VBG pCO2 VBG HCO3 VBG Base Excess FiO2 Sodium Potassium Chloride Carbon Dioxide Anion Gap BUN Creatinine Est GFR ( Amer) Est GFR (Non-Af Amer) Glucose Lactic Acid Calcium Phosphorus 3.8 Total Bilirubin AST ALT Alkaline Phosphatase Ammonia 45.7 H Total Protein Albumin Amylase 46 Lipase 26.4 TSH 3.00 Free T4 2.18 Urine Color Urine Appearance Urine pH Ur Specific [place] Urine Protein Urine Glucose (UA) Urine Ketones Urine Blood Urine Nitrite Ur Leukocyte Esterase Urine WBC (Auto) Urine RBC (Auto) 05/24/19 06:20 WBC RBC Hgb Hct MCV MCH MCHC RDW Plt Count Seg Neutrophils % Lymphocytes % Monocytes % Eosinophils % Basophils % Absolute Neutrophils Absolute Lymphocytes Absolute Monocytes Absolute Eosinophils Absolute Basophils Carbonic Acid 1.39 H HCO3/H2CO3 Ratio 20:1 ABG pH 7.41 ABG pCO2 46.1 H ABG pO2 119.6 H ABG HCO3 28.4 H ABG O2 Saturation 98.3 H ABG Base Excess 3.1 VBG pH VBG pCO2 VBG HCO3 VBG Base Excess FiO2 30% Sodium Potassium Chloride Carbon Dioxide Anion Gap BUN Creatinine Est GFR ( Amer) Est GFR (Non-Af Amer) Glucose Lactic Acid Calcium Phosphorus Total Bilirubin AST ALT Alkaline Phosphatase Ammonia Total Protein Albumin Amylase Lipase TSH Free T4 Urine Color Urine Appearance Urine pH Ur Specific [place] Urine Protein Urine Glucose (UA) Urine Ketones Urine Blood Urine Nitrite Ur Leukocyte Esterase Urine WBC (Auto) Urine RBC (Auto) 05/23/19 05/24/19 05/24/19 23:10 01:50 04:10 Creatine Kinase 278 H CK-MB (CK-2) Troponin I 0.129 0.186 NT-Pro-B Natriuret Pep 3970 H 05/24/19 05/24/19 05/24/19 04:10 10:15 10:15 Creatine Kinase 249 H CK-MB (CK-2) 0.77 0.94 Troponin I 0.208 0.148 NT-Pro-B Natriuret Pep Impressions: Chest X-Ray 05/23/19 23:09 IMPRESSION: Patchy bilateral opacities may relate to developing pneumonia. Head CT 05/23/19 23:26 IMPRESSION: No acute intracranial abnormality. Chest CT 05/24/19 00:00 IMPRESSION: 1. Overall, no significant change when compared to the prior study performed on 05/19/2019. 2. Bilateral pleural calcification and pleural thickening which may be due to underlying asbestos-related pleural disease. 3. Patchy bibasilar opacification likely due to scarring and/or atelectasis. No new infiltrate is identified since the prior study. 4. 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 There is also cardiomegaly with marked left atrial enlargement. 5. Partially calcified mediastinal and hilar lymph nodes. 6. Hyperinflation of the lungs. Assessment & Plan - Diagnosis (1) Sepsis Qualifiers: Sepsis type: sepsis due to unspecified organism Qualified Code(s): A41.9 - Sepsis, unspecified organism Is this a current diagnosis for this admission?: Yes Plan: Patient met criteria for very severe sepsis, he has multiple organ involvement including acute kidney injury, encephalopathy, hypoxemia presently started empirically on Zosyn (2) Hypotension Qualifiers: Hypotension type: unspecified hypotension type Qualified Code(s): I95.9 - Hypotension, unspecified Is this a current diagnosis for this admission?: Yes Plan: He has severe low blood pressure start Fausto-Synephrine (3) Acute kidney injury Is this a current diagnosis for this admission?: Yes Plan: Acute kidney injury most likely due to ATN, continue IV fluid therapy with vasopressor may need CRRT presently we do not have the capacity for CRRT patient DNR status (4) Interstitial lung disease Is this a current diagnosis for this admission?: Yes Plan: He has interstitial lung disease most likely from exposure to asbestos, cannot complete rule out malignant neoplasm of the lung, consult pulmonary
--- NOTE | 2019-05-24 12:07 | ADVANCED CARE ---
- Diagnosis (1) Sepsis Diagnosis Current: Yes (2) Hypotension Diagnosis Current: Yes (3) Acute kidney injury Diagnosis Current: Yes (4) Interstitial lung disease Diagnosis Current: Yes Resuscitation Status: Do Not Resuscitate Discussion: Discussed with spouse and children
[2019-05-24] MEDS: HEPARIN SOD (PORCINE) 5,000 UNIT/ML 1 ML VIAL SUBCUT SCH ×3 (13:12→21:12)
[2019-05-24] MEDS: LEVOFLOXACIN 750 MG/D5W RTU 750 MG/150 ML RTUPB IV SCH (13:51)
--- NOTE | 2019-05-24 14:54 | RADIOLOGY REPORT (SQ) ---
EXAM DESCRIPTION: CHEST SINGLE VIEW COMPLETED DATE/TIME: 05/24/2019 2:37 pm REASON FOR STUDY: TLC verification COMPARISON: 05/23/2018. FINDINGS: Single-view chest AP semi-upright for central line placement. Right IJ line in appropriate position to the cavoatrial junction. No evidence of pneumothorax. Otherwise, relatively stable exam. COPD. Small effusions. Mild vascular congestion. Pericardial c alcification. TECHNICAL DOCUMENTATION: JOB ID: [id number] Reading location - IP/workstation name: [email or web address]
[2019-05-24] MEDS ORDERED: TUBERCULIN,PURIF.PROT.DERIV. 5 TU/0.1 ML TEST 1 ML VIAL ID ONE (15:00)
[2019-05-24] MEDS: RINGERS SOLUTION,LACTATED 1,000 ML IV PRN (17:10)
[2019-05-24 17:15] LABS: CREATINE KINASE MB 1.01 ng/mL (<4.55); TROPONIN I 0.101 ng/mL
--- NOTE | 2019-05-24 18:05 | OPERATIVE REPORT E ---
Operative Report NAME: ZACH MIRANDA SR : 1955 AGE: 64Y DATE OF SURGERY: 05/24/2019 ROOM: 604 PREOPERATIVE DIAGNOSIS: POOR VEINS FOR INTRAVENOUS (IV) ACCESS. NEEDS INTRAVENOUS (IV) ANTIBIOTICS FOR SUSPICION FOR PULMONARY TUBERCULOSIS (PTB). POSTOPERATIVE DIAGNOSIS: POOR VEINS FOR INTRAVENOUS (IV) ACCESS. NEEDS INTRAVENOUS (IV) ANTIBIOTICS FOR SUSPICION FOR PULMONARY TUBERCULOSIS (PTB). OPERATION: Placement of right internal jugular vein, triple-lumen catheter, under local anesthesia and ultrasound guidance. SURGEON: JIMBO LOPEZ M.D. PROCEDURE: Patient was placed in Trendelenburg position. The right neck prepped and draped in the usual sterile fashion. With the use of the ultrasound, the right internal jugular vein was identified and lidocaine injected on the skin. A needle passed towards the internal jugular vein, and blood noted to be dark blood and nonpulsatile. Guidewire passed through the needle towards the area of the superior vena cava, and the needle removed. Puncture site was then dilated and a triple-lumen catheter inserted through the guidewire to a distance of about 17 cm. The guidewire was then removed. All the 3 ports aspirated, bled easily and instilled saline easily. The catheter was then anchored to the skin with 3-0 silk and a BIO patch placed over the insertion site. A transparent sterile dressing placed over the BIO patch and insertion site. Patient tolerated the procedure well. A chest x-ray will be taken for placement. DICTATING PHYSICIAN: JIMBO LOPEZ M.D. [id number] PHY#: [id number] ID: [id number] JOB#: [id number] ACCT: [id number] cc:JIMBO LOPEZ M.D. >
[2019-05-25] MEDS: RINGERS SOLUTION,LACTATED 1,000 ML IV PRN ×2 (01:54→10:42)
[2019-05-25] MEDS: PIPERACILLIN SODIUM/TAZOBACTAM 4.5 GM in NORMAL SALINE 100 ML IV SCH ×4 (02:00→21:05)
[2019-05-25] MEDS: DEXTROSE 5%-WATER 250 ML with NOREPINEPHRINE BITARTRATE 4 MG IV PRN ×4 (03:01→11:49)
[2019-05-25 03:46] LABS: HEMATOCRIT 33.4 % (37.9-51.0); HEMOGLOBIN 10.8 g/dL (13.5-17.0); MEAN CORPUSCULAR HEMOGLOBIN 30.2 pg (27.0-33.4); MEAN CORPUSCULAR HGB CONC 32.4 g/dL (32.0-36.0); MEAN CORPUSCULAR VOLUME 93 fl (80-97); PLATELET COUNT 210 10^3/uL (150-450); RED BLOOD COUNT 3.58 10^6/uL (4.35-5.55); RED CELL DISTRIBUTION WIDTH 19.1 % (11.5-14.0); WHITE BLOOD COUNT 18.3 10^3/uL (4.0-10.5)
[2019-05-25 03:48] LABS: ARTERIAL BLOOD BASE EXCESS 1.2 mmol/L; ARTERIAL BLOOD H2CO3 1.18 mmol/L (1.05-1.35); ARTERIAL BLOOD HCO3 25.5 mmol/L (20-24); ARTERIAL BLOOD O2 SATURATION 98.6 % (94-98); ARTERIAL BLOOD PCO2 39.2 mmHg (35-45); ARTERIAL BLOOD PH 7.43 (7.35-7.45); ARTERIAL BLOOD PO2 125.4 mmHg (80-100); ARTERIAL BLOOD TOTAL CO2 26.7 mmol/L (23-27)
[2019-05-25 03:51] LABS: ARTERIAL BLOOD FIO2 28%
[2019-05-25 03:58] LABS: ABSOLUTE LYMPHOCYTES# (MANUAL) 0.2 10^3/uL (0.5-4.7); ABSOLUTE MONOCYTES # (MANUAL) 0.4 10^3/uL (0.1-1.4); BAND NEUTROPHILS % (MANUAL) 1 % (3-5); BASOPHILS % (MANUAL) 0 % (0-2); EOSINOPHILS % (MANUAL) 0 % (0-6); LYMPHOCYTES % (MANUAL) 1 % (13-45); MONOCYTES % (MANUAL) 2 % (3-13); PLATELET COMMENT ADEQUATE; SEGMENTED NEUTROPHILS % (MAN) 96 % (42-78); TOTAL CELLS COUNTED 100
[2019-05-25 04:00] LABS: ANISOCYTOSIS 2+; POIKILOCYTOSIS SLIGHT; POLYCHROMASIA SLIGHT
[2019-05-25 04:03] LABS: ALANINE AMINOTRANSFERASE 21 U/L (21-72); ALBUMIN 2.9 g/dL (3.5-5.0); ALKALINE PHOSPHATASE 161 U/L (38-126); ANION GAP 10 (5-19); ASPARTATE AMINO TRANSFERASE 49 U/L (17-59); BILIRUBIN,DIRECT 1.4 mg/dL (0.0-0.4); BILIRUBIN,TOTAL 1.7 mg/dL (0.2-1.3); BLOOD UREA NITROGEN 52 mg/dL (7-20); CALCIUM 8.8 mg/dL (8.4-10.2); CARBON DIOXIDE 28 mmol/L (22-30); CHLORIDE 96 mmol/L (98-107); CHOLESTEROL 70.33 mg/dL (0-200); GLUCOSE 157 mg/dL (75-110); POTASSIUM 4.2 mmol/L (3.6-5.0); TOTAL PROTEIN 7.5 g/dL (6.3-8.2); TRIGLYCERIDES 35 mg/dL (<150)
[2019-05-25 04:14] LABS: DIRECT LDL 30 mg/dL (<100)
[2019-05-25] MEDS: HEPARIN SOD (PORCINE) 5,000 UNIT/ML 1 ML VIAL SUBCUT SCH ×3 (05:07→21:08)
--- NOTE | 2019-05-25 09:49 | PDOC PROGRESS REPORT ---
Subjective Progress Note for:: 05/25/19 Subjective:: This is a 64-year-old male only one time seen in the office have a significant history of the heart failure A. fib chronic lymphedema chronic lung interstitial diseaseCurrently [place] to the [facility] couple of months back came to the ER because of the patient's not feeling well fever and found very severe sepsis pneumonia and respiratory distressed Patient was put in the ICU because of the hypotensive and respiratory distressed patient currently on levo drips and start the patient on a broad-spectrum antibiotic Since seen by the pulmonary Dr. Curseen Also found to be renal failure most likely due to the sepsis and hypotensive Patient's troponin is elevated most likely due to the above conditions we are going to consult the cardiology with ongoing significant cardiac issues Patient's denied any chest pain denied any short of breath Patient's initially altered mental status when he came but currently get better Discussed with the patient's and the daughter on the bedside ICU regarding the patient's Condition with the poor prognosis Patient's and the family expressed DNR and DNI Reason For Visit: SEPSIS,BILATERAL PNEUMONIA Physical Exam Vital Signs: Temp Pulse Resp BP Pulse Ox 97.0 F 102 H 18 111/81 96 05/25/19 08:00 05/25/19 08:00 05/25/19 08:00 05/25/19 08:00 05/25/19 08:00 Intake & Output 05/24/19 05/25/19 05/26/19 06:59 06:59 06:59 Intake Total 2127 2442 297 Output Total 55 537 125 Balance 2072 1905 172 Weight 67.7 kg 70.6 kg General appearance: PRESENT: no acute distress, thin Head exam: PRESENT: atraumatic, normocephalic Eye exam: PRESENT: conjunctiva pink, EOMI, PERRLA. ABSENT: scleral icterus Ear exam: PRESENT: normal external ear exam Mouth exam: PRESENT: moist, tongue midline Neck exam: PRESENT: full ROM. ABSENT: carotid bruit, JVD, lymphadenopathy, thyromegaly Respiratory exam: PRESENT: decreased breath sounds Cardiovascular exam: PRESENT: RRR. ABSENT: diastolic murmur, rubs, systolic murmur Vascular exam: PRESENT: normal capillary refill GI/Abdominal exam: PRESENT: normal bowel sounds, soft. ABSENT: distended, guarding, mass, organolmegaly, rebound, tenderness Rectal exam: PRESENT: deferred Extremities exam: PRESENT: pedal edema Neurological exam: PRESENT: alert, awake, oriented to person, oriented to place, oriented to time, oriented to situation, CN II-XII grossly intact. ABSENT: motor sensory deficit Psychiatric exam: PRESENT: appropriate affect, normal mood. ABSENT: homicidal ideation, suicidal ideation Skin exam: PRESENT: dry, intact, warm. ABSENT: cyanosis, rash Results Laboratory Results: 05/25/19 03:30 05/25/19 03:30 05/25/19 05/25/19 05/25/19 03:30 03:30 03:30 WBC 18.3 H RBC 3.58 L Hgb 10.8 L Hct 33.4 L MCV 93 MCH 30.2 MCHC 32.4 RDW 19.1 H Plt Count 210 Seg Neutrophils % Not Reportable Lymphocytes % Not Reportable Monocytes % Not Reportable Eosinophils % Not Reportable Basophils % Not Reportable Absolute Neutrophils Not Reportable Absolute Lymphocytes Not Reportable Absolute Monocytes Not Reportable Absolute Eosinophils Not Reportable Absolute Basophils Not Reportable Carbonic Acid 1.18 HCO3/H2CO3 Ratio 21:1 ABG pH 7.43 ABG pCO2 39.2 ABG pO2 125.4 H ABG HCO3 25.5 H ABG O2 Saturation 98.6 H ABG Base Excess 1.2 FiO2 28% Sodium 133.8 L Potassium 4.2 Chloride 96 L Carbon Dioxide 28 Anion Gap 10 BUN 52 H Creatinine 1.80 H Est GFR ( Amer) 46 L Est GFR (Non-Af Amer) 38 L Glucose 157 H Calcium 8.8 Magnesium 1.8 Total Bilirubin 1.7 H AST 49 ALT 21 Alkaline Phosphatase 161 H Total Protein 7.5 Albumin 2.9 L Triglycerides 35 Cholesterol 70.33 LDL Cholesterol Direct 30 VLDL Cholesterol 7.0 L HDL Cholesterol 26 L 05/25/19 02:22 Sputum Gram Stain - Final 05/25/19 02:22 Sputum Sputum Culture - Final 05/23/19 05/24/19 05/24/19 23:10 01:50 04:10 Creatine Kinase 278 H CK-MB (CK-2) Troponin I 0.129 0.186 NT-Pro-B Natriuret Pep 3970 H 05/24/19 05/24/19 05/24/19 04:10 10:15 10:15 Creatine Kinase 249 H CK-MB (CK-2) 0.77 0.94 Troponin I 0.208 0.148 NT-Pro-B Natriuret Pep 05/24/19 05/24/19 16:30 16:30 Creatine Kinase 198 H CK-MB (CK-2) 1.01 Troponin I 0.101 NT-Pro-B Natriuret Pep Impressions: Head CT 05/23/19 23:26 IMPRESSION: No acute intracranial abnormality. Chest CT 05/24/19 00:00 IMPRESSION: 1. Overall, no significant change when compared to the prior study performed on 05/19/2019. 2. Bilateral pleural calcification and pleural thickening which may be due to underlying asbestos-related pleural disease. 3. Patchy bibasilar opacification likely due to scarring and/or atelectasis. No new infiltrate is identified since the prior study. 4. 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 There is also cardiomegaly with marked left atrial enlargement. 5. Partially calcified mediastinal and hilar lymph nodes. 6. Hyperinflation of the lungs. Assessment & Plan - Diagnosis (1) Sepsis Qualifiers: Sepsis type: sepsis due to unspecified organism Qualified Code(s): A41.9 - Sepsis, unspecified organism Is this a current diagnosis for this admission?: Yes Plan: Continues to broad-spectrum antibiotic follow with culture (2) Acute kidney injury Is this a current diagnosis for this admission?: Yes Plan: Continues to IV fluid continues to IV antibiotic we will consult the nephrology (3) Altered mental status Qualifiers: Altered mental status type: unspecified Qualified Code(s): R41.82 - Altered mental status, unspecified Is this a current diagnosis for this admission?: Yes Plan: Due to the sepsis and the multiple other etiology currently getting better (4) Elevated troponin Is this a current diagnosis for this admission?: Yes Plan: Due to the most likely hypotension and the sepsis but with the significant underlying coronary disease and heart failure we will consult the cardiology (5) Hypotension Qualifiers: Hypotension type: unspecified hypotension type Qualified Code(s): I95.9 - Hypotension, unspecified Is this a current diagnosis for this admission?: Yes Plan: Due to the severe sepsis continues to pressure and IV fluid and IV antibiotic we will also consult the cardiology to do the echocardiogram and further e valuations (6) Interstitial lung disease Is this a current diagnosis for this admission?: Yes Plan: Follow with the pulmonary (7) Pneumonia Qualifiers: Pneumonia type: due to unspecified organism Laterality: bilateral Lung location: unspecified part of lung Qualified Code(s): J18.9 - Pneumonia, unspecified organism Is this a current diagnosis for this admission?: Yes Plan: Continues to IV antibiotic (8) Unintentional weight loss Is this a current diagnosis for this admission?: Yes (9) Hemoptysis Is this a current diagnosis for this admission?: Yes - Time Time Spent with patient: 15-24 minutes Medications reviewed and adjusted accordingly: Yes Anticipated discharge: Other Within: Other - Plan Summary Plan Summary: Continues to ICU support Consult the cardiology and nephrology We get the medical records from [facility] Overall patient's prognosis is very poor with the multiorgan failure sepsis hypertensives discussed with the and the patient and the family member in the ICU patient is a DNR/DNI
--- NOTE | 2019-05-25 09:55 | RADIOLOGY REPORT (SQ) ---
EXAM DESCRIPTION: CHEST SINGLE VIEW COMPLETED DATE/TIME: 05/25/2019 6:24 am REASON FOR STUDY: sepsis COMPARISON: 05/24/2019 EXAM PARAMETERS: NUMBER OF VIEWS: One view. TECHNIQUE: Single frontal radiographic view of the chest acquired. RADIATION DOSE: NA LIMITATIONS: None. FINDINGS: LUNGS AND PLEURA: Small spur stable bilateral pleural effusions. Stable mild vascular con gestion and chronic bilateral pulmonary changes. MEDIASTINUM AND HILAR STRUCTURES: No masses. Contour normal. HEART AND VASCULAR STRUCTURES: Heart normal in size. Normal vasculature. BONES: No acute findings. HARDWARE: Tip of the central line remains at the level of the cavoatrial junction. OTHER: Pericardial lung calcification of. IMPRESSION: No interval change. TECHNICAL DOCUMENTATION: JOB ID: [id number] [employer]- All Rights Reserved Reading location - IP/workstation name: [email or web address]
[2019-05-25] MEDS: PANTOPRAZOLE SODIUM 40 MG TABLET.DR PO SCH (10:42)
[2019-05-25] MEDS: FLECAINIDE ACETATE 100 MG TABLET PO SCH ×2 (10:42→21:10)
[2019-05-26] MEDS: PIPERACILLIN SODIUM/TAZOBACTAM 4.5 GM in NORMAL SALINE 100 ML IV SCH ×4 (02:01→22:09)
[2019-05-26] MEDS: RINGERS SOLUTION,LACTATED 1,000 ML IV PRN ×2 (03:44→11:57)
[2019-05-26 04:06] LABS: ABSOLUTE EOSINOPHILS # (AUTO) 0.1 10^3/uL (0.0-0.6); ABSOLUTE LYMPHOCYTES (AUTO) 0.6 10^3/uL (0.5-4.7); ABSOLUTE MONOCYTES (AUTO) 0.5 10^3/uL (0.1-1.4); ABSOLUTE NEUT (AUTO) 7.6 10^3/uL (1.7-8.2); ARTERIAL BLOOD BASE EXCESS 6.2 mmol/L; ARTERIAL BLOOD H2CO3 1.54 mmol/L (1.05-1.35); ARTERIAL BLOOD HCO3 31.9 mmol/L (20-24); ARTERIAL BLOOD O2 SATURATION 97.5 % (94-98); ARTERIAL BLOOD PCO2 51.3 mmHg (35-45); ARTERIAL BLOOD PH 7.41 (7.35-7.45); ARTERIAL BLOOD PO2 100.4 mmHg (80-100); ARTERIAL BLOOD TOTAL CO2 33.4 mmol/L (23-27); BASOPHILS % (AUTO) 0.3 % (0-2); EOSINOPHILS % (AUTO) 1.1 % (0-6); HEMATOCRIT 29.8 % (37.9-51.0); HEMOGLOBIN 9.8 g/dL (13.5-17.0); LYMPHOCYTES % (AUTO) 6.4 % (13-45); MEAN CORPUSCULAR HEMOGLOBIN 30.6 pg (27.0-33.4); MEAN CORPUSCULAR VOLUME 93 fl (80-97); MONOCYTES % (AUTO) 6.2 % (3-13); PLATELET COUNT 161 10^3/uL (150-450); RED BLOOD COUNT 3.21 10^6/uL (4.35-5.55); TOTAL CELLS COUNTED % (AUTO) 100 %; WHITE BLOOD COUNT 8.9 10^3/uL (4.0-10.5)
[2019-05-26 04:12] LABS: ARTERIAL BLOOD FIO2 3 L
[2019-05-26 04:29] LABS: ALANINE AMINOTRANSFERASE 34 U/L (21-72); ALBUMIN 2.7 g/dL (3.5-5.0); ALKALINE PHOSPHATASE 138 U/L (38-126); ANION GAP 6 (5-19); ASPARTATE AMINO TRANSFERASE 51 U/L (17-59); BILIRUBIN,DIRECT 1.2 mg/dL (0.0-0.4); BILIRUBIN,TOTAL 1.5 mg/dL (0.2-1.3); BLOOD UREA NITROGEN 43 mg/dL (7-20); CALCIUM 8.7 mg/dL (8.4-10.2); CARBON DIOXIDE 32 mmol/L (22-30); CHLORIDE 95 mmol/L (98-107); GLUCOSE 134 mg/dL (75-110); POTASSIUM 4.3 mmol/L (3.6-5.0); TOTAL PROTEIN 7.1 g/dL (6.3-8.2)
[2019-05-26] MEDS: HEPARIN SOD (PORCINE) 5,000 UNIT/ML 1 ML VIAL SUBCUT SCH ×2 (05:27→14:27)
--- NOTE | 2019-05-26 08:55 | RADIOLOGY REPORT (SQ) ---
EXAM DESCRIPTION: CHEST SINGLE VIEW COMPLETED DATE/TIME: 05/26/2019 6:00 am REASON FOR STUDY: copd,silicosis COMPARISON: 05/25/2019 EXAM PARAMETERS: NUMBER OF VIEWS: One view. TECHNIQUE: Single frontal radiographic view of the chest acquired. RADIATION DOSE: NA LIMITATIONS: None. FINDINGS: LUNGS AND PLEURA: Grossly stable perihilar interstitial and patchy alveolar opacities bila terally. Small bilateral effusions. No pneumothorax. Emphysematous change. MEDIASTINUM AND HILAR STRUCTURES: Stable. HEART AND VASCULAR STRUCTURES: Enlarged cardiac silhouette, stable. Aortic atherosclerosis. BONES: No acute findings. HARDWARE: Right internal jugular central venous catheter tip overlies cavoatrial junction. OTHER: No other significant finding. IMPRESSION: Stable chest with persistent patchy interstitial and alveolar opacities, likely edema al though infection is not excluded. Stable small bilateral effusions. TECHNICAL DOCUMENTATION: JOB ID: [id number] [employer]- All Rights Reserved Reading location - IP/workstation name: [email or web address]
[2019-05-26] MEDS: PANTOPRAZOLE SODIUM 40 MG TABLET.DR PO SCH (11:56)
[2019-05-26] MEDS: LEVOFLOXACIN 750 MG/D5W RTU 750 MG/150 ML RTUPB IV SCH (11:57)
[2019-05-26] MEDS: FLECAINIDE ACETATE 100 MG TABLET PO SCH ×2 (11:57→22:10)
--- NOTE | 2019-05-26 12:28 | PDOC PROGRESS REPORT ---
Subjective Progress Note for:: 05/26/19 Subjective:: Patient is feeling better Since kidney function is all improving and patient's white count is also improving Patient blood patient is remained stable without the pressure Patient is denied any chest pain to than any shortness of the breath Cussed with the pulmonary and suggest the continues to hold the Eliquis Patient at this point does not have any tuberculosis but as per discussed with the pulmonary need isolation's precautions Discussed with the family on the bedside Discussed with the cardiology and suggested he will evaluate the patient's today and he will getting the medical record from the patient's cardiology at [facility] Reason For Visit: SEPSIS,BILATERAL PNEUMONIA Physical Exam Vital Signs: Temp Pulse Resp BP Pulse Ox 98.1 F 102 H 13 108/79 100 05/26/19 08:00 05/26/19 10:00 05/26/19 10:00 05/26/19 10:00 05/26/19 10:00 Intake & Output 05/25/19 05/26/19 05/27/19 06:59 06:59 06:59 Intake Total 2442 3483 986 Output Total 537 1865 200 Balance 1905 1618 786 Weight 70.6 kg 75.2 kg General appearance: PRESENT: no acute distress, thin Head exam: PRESENT: atraumatic, normocephalic Eye exam: PRESENT: conjunctiva pink, EOMI, PERRLA. ABSENT: scleral icterus Ear exam: PRESENT: normal external ear exam Mouth exam: PRESENT: moist, tongue midline Neck exam: PRESENT: full ROM. ABSENT: carotid bruit, JVD, lymphadenopathy, thyromegaly Respiratory exam: PRESENT: decreased breath sounds Cardiovascular exam: PRESENT: RRR. ABSENT: diastolic murmur, rubs, systolic murmur Vascular exam: PRESENT: normal capillary refill GI/Abdominal exam: PRESENT: normal bowel sounds, soft. ABSENT: distended, guarding, mass, organolmegaly, rebound, tenderness Rectal exam: PRESENT: deferred Neurological exam: PRESENT: alert, awake, oriented to person, oriented to place, oriented to time, oriented to situation, CN II-XII grossly intact. ABSENT: motor sensory deficit Psychiatric exam: PRESENT: appropriate affect, normal mood. ABSENT: homicidal ideation, suicidal ideation Skin exam: PRESENT: dry, intact, warm. ABSENT: cyanosis, rash Results Laboratory Results: 05/26/19 03:40 07/30/19 03:40 05/26/19 05/26/19 05/26/19 03:40 03:40 03:40 WBC 8.9 RBC 3.21 L Hgb 9.8 L Hct 29.8 L MCV 93 MCH 30.6 MCHC 33.0 RDW 19.0 H Plt Count 161 Seg Neutrophils % 86.0 H Lymphocytes % 6.4 L Monocytes % 6.2 Eosinophils % 1.1 Basophils % 0.3 Absolute Neutrophils 7.6 Absolute Lymphocytes 0.6 Absolute Monocytes 0.5 Absolute Eosinophils 0.1 Absolute Basophils 0.0 Carbonic Acid 1.54 H HCO3/H2CO3 Ratio 20:1 ABG pH 7.41 ABG pCO2 51.3 H ABG pO2 100.4 H ABG HCO3 31.9 H ABG O2 Saturation 97.5 ABG Base Excess 6.2 FiO2 3 L Sodium 132.8 L Potassium 4.3 Chloride 95 L Carbon Dioxide 32 H Anion Gap 6 BUN 43 H Creatinine 1.34 H Est GFR ( Amer) > 60 Est GFR (Non-Af Amer) 54 L Glucose 134 H Calcium 8.7 Magnesium 1.8 Total Bilirubin 1.5 H AST 51 ALT 34 Alkaline Phosphatase 138 H Total Protein 7.1 Albumin 2.7 L 05/23/19 23:40 Saba Catheter Urine Culture - Final NO GROWTH 2 DAYS 05/23/19 05/24/19 05/24/19 23:10 01:50 04:10 Creatine Kinase 278 H CK-MB (CK-2) Troponin I 0.129 0.186 NT-Pro-B Natriuret Pep 3970 H 05/24/19 05/24/19 05/24/19 04:10 10:15 10:15 Creatine Kinase 249 H CK-MB (CK-2) 0.77 0.94 Troponin I 0.208 0.148 NT-Pro-B Natriuret Pep 05/24/19 05/24/19 16:30 16:30 Creatine Kinase 198 H CK-MB (CK-2) 1.01 Troponin I 0.101 NT-Pro-B Natriuret Pep Impressions: Head CT 05/23/19 23:26 IMPRESSION: No acute intracranial abnormality. Chest CT 05/24/19 00:00 IMPRESSION: 1. Overall, no significant change when compared to the prior study performed on 05/19/2019. 2. Bilateral pleural calcification and pleural thickening which may be due to underlying asbestos-related pleural disease. 3. Patchy bibasilar opacification likely due to scarring and/or atelectasis. No new infiltrate is identified since the prior study. 4. 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 There is also cardiomegaly with marked left atrial enlargement. 5. Partially calcified mediastinal and hilar lymph nodes. 6. Hyperinflation of the lungs. Chest X-Ray 05/26/19 06:00 IMPRESSION: Stable chest with persistent patchy interstitial and alveolar opacities, likely edema although infection is not excluded. Stable small bilateral effusions. Assessment & Plan - Diagnosis (1) Sepsis Qualifiers: Sepsis type: sepsis due to unspecified organism Qualified Code(s): A41.9 - Sepsis, unspecified organism Is this a current diagnosis for this admission?: Yes Plan: Continues to IV antibiotic (2) Acute kidney injury Is this a current diagnosis for this admission?: Yes Plan: Currently all improving (3) Altered mental status Qualifiers: Altered mental status type: unspecified Qualified Code(s): R41.82 - Altered mental status, unspecified Is this a current diagnosis for this admission?: Yes Plan: Due to the sepsis and the multiple other etiology currently getting better (4) Elevated troponin Is this a current diagnosis for this admission?: Yes Plan: Due to the most likely hypotension and the sepsis but with the significant un derlying coronary disease and heart failure we will consult the cardiology (5) Hypotension Qualifiers: Hypotension type: unspecified hypotension type Qualified Code(s): I95.9 - Hypotension, unspecified Is this a current diagnosis for this admission?: Yes Plan: Currently all stable will switch to Ringer lactate to the normal saline (6) Interstitial lung disease Is this a current diagnosis for this admission?: Yes Plan: Follow with the pulmonary (7) Pneumonia Qualifiers: Pneumonia type: due to unspecified organism Laterality: bilateral Lung location: unspecified part of lung Qualified Code(s): J18.9 - Pneumonia, unspecified organism Is this a current diagnosis for this admission?: Yes Plan: Continues to IV antibiotic (8) Unintentional weight loss Is this a current diagnosis for this admission?: Yes (9) Hemoptysis Is this a current diagnosis for this admission?: Yes - Time Time Spent with patient: 25-34 minutes Medications reviewed and adjusted accordingly: Yes Anticipated discharge: Other Within: Other - Plan Summary Plan Summary: Discussed with the patient and the family on the bedside in the ICU and update about the all the labs plan discussed with the pulmonary and cardiology
[2019-05-26] MEDS: NORMAL SALINE 1000 ML 1,000 ML IV PRN (14:34)
--- NOTE | 2019-05-26 17:36 | EKG REPORT ---
SEVERITY:- ABNORMAL ECG - ATRIAL FIBRILLATION RIGHT AXIS DEVIATION LOW VOLTAGE IN FRONTAL LEADS NONSPECIFIC T ABNORMALITIES, DIFFUSE LEADS : Confirmed by: Starla Mcadams MD 26-May-2019 15:05:44
--- NOTE | 2019-05-26 18:13 | PDOC CONSULTATION ---
Consultation Consult Date: 05/26/19 Provider Consulted: Clovis VILLALBA Consult reason:: YUN History of Present Illness Admission Date/PCP: 05/24/19 04:11 PEÑA OLIVER MD History of Present Illness: ZACH MIRANDA SR is a 64 year old male with a history of apparent atrial fibrillation chronic smoker, 6 pack beer a day according to his at the bedside was admitted with history of altered mental status, weakness and hypotension. Further evaluations revealed that he was septic from unidentified source. Other relevant evaluation showed that he had YUN with a creatinine of 1.4 on the and is currently at 1.3. He is fortunately nonoliguric. He also had a history of cough with expectoration and hemoptysis for for couple of weeks prior to his admission according to his . His who is the main historian also admits to the fact that patient has been having fever for a few days prior with occasional chills.No apparent history of tuberculosis in the past a contact with somebody with tuberculosis. He has unintentional weight loss over the last few months. He had a noncontrasted CT scan done on the as well as one on the . It showed that he had hyperinflated lungs, Asbestosis plaques, fibrosis in the parenchyma, calcified pericardium and mediastinal lymph nodes.Today when being seen in the ICU patient is awake and alert and oriented x2. He is still not back to his old self according to his . However she is happy with the progress being made.Labs and medications were reviewed with her as well as the treating ICU nurse Char. Past Medical History Cardiac Medical History: Reports: Atrial Fibrillation Pulmonary Medical History: Reports: Bronchitis, Chronic Obstructive Pulmonary Disease (COPD), Respiratory Failure Social History Lives with: Spouse/Significant other Smoking Status: Current Every Day Smoker Cigarettes Packs Per Day: 1 Frequency of Alcohol Use: None Hx Recreational Drug Use: No - Advance Directive Resuscitation Status: Do Not Resuscitate Family History Parental Family History Reviewed: Yes - Negative for ESRD. Children Family History Reviewed: No Sibling(s) Family History Reviewed.: No Medication/Allergy Home Medications: Apixaban [Eliquis 5 mg Tablet] 5 mg PO BID 05/24/19 Cholecalciferol (Vitamin D3) [D3-2000] 2,000 unit PO DAILY 05/24/19 Flecainide Acetate [Tambocor 100 Mg Tablet] 50 mg PO Q12H 05/24/19 Furosemide [Lasix 40 mg Tablet] 40 mg PO BID 05/24/19 Metolazone [Zaroxolyn 5 Mg Tablet] 5 mg PO BID 05/24/19 Metoprolol Succinate [Toprol Xl 25 mg Tab.sr] 12.5 mg PO DAILY 05/24/19 Omeprazole 40 mg PO DAILY 05/24/19 Potassium Chloride [Klor-Con M20] 40 meq PO BID 05/24/19 Allergies/Adverse Reactions: tramadol Allergy (Verified 05/19/19 15:45) VOMITING Review of Systems Constitutional: PRESENT: anorexia, chills, fatigue, fever(s), weakness, weight loss. ABSENT: headache(s), night sweats Nose, Mouth, and Throat: ABSENT: mouth pain, sore throat, vertigo Cardiovascular: PRESENT: dyspnea on exertion, edema, orthropnea. ABSENT: chest pain, palpitations Respiratory: PRESENT: cough, dyspnea, hemoptysis Gastrointestinal: ABSENT: abdominal pain, bloating, coffee ground emesis, constipation, diarrhea, dysphagia, heartburn, hematemesis, hematochezia, nausea, vomiting Genitourinary: ABSENT: dysuria, hematuria, nocturia Musculoskeletal: ABSENT: deformity, joint swelling Integumentary: ABSENT: diaphoresis, erythema, lesions, pruritus, rash Neurological: PRESENT: confusion. ABSENT: abnormal movements, abnormal speech, convulsions, focal weakness Hematologic/Lymphatic: ABSENT: easy bleeding, easy bruising Physical Exam Vital Signs: Temp Pulse Resp BP Pulse Ox 97.7 F 106 H 19 102/76 99 05/26/19 16:00 05/26/19 16:00 05/26/19 16:00 05/26/19 16:00 05/26/19 16:00 Intake & Output 05/25/19 05/26/19 05/27/19 06:59 06:59 06:59 Intake Total 2448 9173 2236 Output Total 539 8355 450 Balance 1905 1618 1786 Weight 70.6 kg 75.2 kg General appearance: PRESENT: no acute distress Eye exam: PRESENT: EOMI, PERRLA Ear exam: PRESENT: normal external ear exam Mouth exam: PRESENT: moist, neck supple Neck exam: ABSENT: meningismus, tenderness, thyromegaly, tracheal deviation Respiratory exam: PRESENT: clear to auscultation joe, crackles - Scattered.. ABSENT: decreased breath sounds Cardiovascular exam: PRESENT: +S1, +S2 GI/Abdominal exam: PRESENT: normal bowel sounds, soft. ABSENT: organomegaly, tenderness Extremities exam: PRESENT: pedal edema Neurological exam: PRESENT: altered Skin exam: PRESENT: mottled - Stasis changes in both lower extremities., rash. ABSENT: cyanosis, erythema Results Laboratory Results: 05/26/19 03:40 05/26/19 03:40 05/26/19 05/26/19 05/26/19 03:40 03:40 03:40 WBC 8.9 RBC 3.21 L Hgb 9.8 L Hct 29.8 L MCV 93 MCH 30.6 MCHC 33.0 RDW 19.0 H Plt Count 161 Seg Neutrophils % 86.0 H Lymphocytes % 6.4 L Monocytes % 6.2 Eosinophils % 1.1 Basophils % 0.3 Absolute Neutrophils 7.6 Absolute Lymphocytes 0.6 Absolute Monocytes 0.5 Absolute Eosinophils 0.1 Absolute Basophils 0.0 Carbonic Acid 1.54 H HCO3/H2CO3 Ratio 20:1 ABG pH 7.41 ABG pCO2 51.3 H ABG pO2 100.4 H ABG HCO3 31.9 H ABG O2 Saturation 97.5 ABG Base Excess 6.2 FiO2 3 L Sodium 132.8 L Potassium 4.3 Chloride 95 L Carbon Dioxide 32 H Anion Gap 6 BUN 43 H Creatinine 1.34 H Est GFR ( Amer) > 60 Est GFR (Non-Af Amer) 54 L Glucose 134 H Calcium 8.7 Magnesium 1.8 Total Bilirubin 1.5 H AST 51 ALT 34 Alkaline Phosphatase 138 H Total Protein 7.1 Albumin 2.7 L 05/23/19 23:40 Saba Catheter Urine Culture - Final NO GROWTH 2 DAYS 05/23/19 05/24/19 05/24/19 23:10 01:50 04:10 Creatine Kinase 278 H CK-MB (CK-2) Troponin I 0.129 0.186 NT-Pro-B Natriuret Pep 3970 H 05/24/19 05/24/19 05/24/19 04:10 10:15 10:15 Creatine Kinase 249 H CK-MB (CK-2) 0.77 0.94 Troponin I 0.208 0.148 NT-Pro-B Natriuret Pep 05/24/19 05/24/19 16:30 16:30 Creatine Kinase 198 H CK-MB (CK-2) 1.01 Troponin I 0.101 NT-Pro-B Natriuret Pep Impressions: Head CT 05/23/19 23:26 IMPRESSION: No acute intracranial abnormality. Chest CT 05/24/19 00:00 IMPRESSION: 1. Overall, no significant change when compared to the prior study performed on 05/19/2019. 2. Bilateral pleural calcification and pleural thickening which may be due to underlying asbestos-related pleural disease. 3. Patchy bibasilar opacification likely due to scarring and/or atelectasis. No new infiltrate is identified since the prior study. 4. 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 There is also cardiomegaly with marked left atrial enlargement. 5. Partially calcified mediastinal and hilar lymph nodes. 6. Hyperinflation of the lungs. Chest X-Ray 05/26/19 06:00 IMPRESSION: Stable chest with persistent patchy interstitial and alveolar opacities, likely edema although infection is not excluded. Stable small bilateral effusions. Assessment & Plan - Diagnosis (1) Septic shock Plan: Unknown etiology. Continue on current antibiotics and pressor agents. We will also add Midodrin. Given his hemoptysis one definitely has to rule him out for AFB as well as potential cancer of his lungs. (2) Acute kidney injury Is this a current diagnosis for this admission?: Yes Plan: Nonoliguric. Continue present guidelines. Needs to get his blood pressure better. (3) Altered mental status Qualifiers: Altered mental status type: unspecified Qualified Code(s): R41.82 - Altered mental status, unspecified Is this a current diagnosis for this admission?: Yes Plan: Presently improving.Most likely from his septic shock status, hypoxia, and hypotension. However given his ammonia and his drinking history one might also have to consider cirrhosis in the background. (4) Hypotension Qualifiers: Hypotension type: unspecified hypotension type Qualified Code(s): I95.9 - Hypotension, unspecified Is this a current diagnosis for this admission?: Yes (5) Interstitial lung disease Is this a current diagnosis for this admission?: Yes Plan: As a cause for hypoxia and associated issues. (6) Hemoptysis Is this a current diagnosis for this admission?: Yes Plan: Being worked up for AFB. Besides that one definitely has to consider cancer of the lungs given his asbestosis evidence in the CT scan, plus being a chronic smoker with unintentional weight loss.
[2019-05-26] MEDS: MIDODRINE HCL 5 MG TABLET PO SCH (18:30)
[2019-05-26] MEDS: APIXABAN 5 MG TABLET PO SCH (22:09)
[2019-05-27 05:12] LABS: ALANINE AMINOTRANSFERASE 37 U/L (21-72); ALBUMIN 2.8 g/dL (3.5-5.0); ALKALINE PHOSPHATASE 156 U/L (38-126); ASPARTATE AMINO TRANSFERASE 48 U/L (17-59); BILIRUBIN,DIRECT 1.3 mg/dL (0.0-0.4); BILIRUBIN,TOTAL 1.6 mg/dL (0.2-1.3); BLOOD UREA NITROGEN 27 mg/dL (7-20); CALCIUM 8.7 mg/dL (8.4-10.2); CARBON DIOXIDE 33 mmol/L (22-30); CHLORIDE 98 mmol/L (98-107); GLUCOSE 104 mg/dL (75-110); POTASSIUM 4.4 mmol/L (3.6-5.0); TOTAL PROTEIN 7.3 g/dL (6.3-8.2)
[2019-05-27 05:19] LABS: ANION GAP 4 (5-19)
[2019-05-27] MEDS: PIPERACILLIN SODIUM/TAZOBACTAM 4.5 GM in NORMAL SALINE 100 ML IV SCH ×4 (06:27→20:09)
[2019-05-27] MEDS: NORMAL SALINE 1000 ML 1,000 ML IV PRN (06:28)
[2019-05-27] MEDS ORDERED: NORMAL SALINE 1000 ML 1,000 ML IV PRN (08:20)
[2019-05-27] MEDS: FLECAINIDE ACETATE 100 MG TABLET PO SCH ×2 (09:23→21:35)
[2019-05-27] MEDS: MIDODRINE HCL 5 MG TABLET PO SCH ×3 (09:23→17:53)
[2019-05-27] MEDS: PANTOPRAZOLE SODIUM 40 MG TABLET.DR PO SCH (09:24)
[2019-05-27] MEDS: APIXABAN 5 MG TABLET PO SCH ×2 (09:24→21:35)
--- NOTE | 2019-05-27 09:48 | PDOC PROGRESS REPORT ---
Subjective Progress Note for:: 05/27/19 Subjective:: Patient is currently doing fair Patient is to denied any chest pain to than any shortness of breath Patient's blood pressure is currently stable but the Midrin by the intervention analyst yesterday Patients that the Eliquis by the roll carrier Dr. Mcadams Discussed with the on the bedside regarding the patient's current conditions Reason For Visit: SEPSIS,BILATERAL PNEUMONIA Physical Exam Vital Signs: Temp Pulse Resp BP Pulse Ox 98.6 F 103 H 24 H 103/69 96 05/27/19 08:00 05/27/19 08:00 05/27/19 08:09 05/27/19 08:09 05/27/19 09:17 Intake & Output 05/26/19 05/27/19 05/28/19 06:59 06:59 06:59 Intake Total 3483 3536 Output Total 1865 1200 150 Balance 1618 2336 -150 Weight 75.2 kg 80.2 kg General appearance: PRESENT: no acute distress, thin Head exam: PRESENT: atraumatic, normocephalic Eye exam: PRESENT: conjunctiva pink, EOMI, PERRLA. ABSENT: scleral icterus Ear exam: PRESENT: normal external ear exam Mouth exam: PRESENT: moist, tongue midline Neck exam: PRESENT: full ROM. ABSENT: carotid bruit, JVD, lymphadenopathy, thyromegaly Respiratory exam: PRESENT: clear to auscultation joe Cardiovascular exam: PRESENT: RRR. ABSENT: diastolic murmur, rubs, systolic murmur Vascular exam: PRESENT: normal capillary refill GI/Abdominal exam: PRESENT: normal bowel sounds, soft. ABSENT: distended, guarding, mass, organolmegaly, rebound, tenderness Rectal exam: PRESENT: deferred Extremities exam: PRESENT: pedal edema Neurological exam: PRESENT: alert, awake, oriented to person, oriented to place, oriented to time, oriented to situation, CN II-XII grossly intact. ABSENT: motor sensory deficit Psychiatric exam: PRESENT: appropriate affect, normal mood. ABSENT: homicidal ideation, suicidal ideation Skin exam: PRESENT: dry, intact, warm. ABSENT: cyanosis, rash Results Laboratory Results: 05/26/19 03:40 05/27/19 04:37 05/27/19 04:37 Sodium 135.0 L Potassium 4.4 Chloride 98 Carbon Dioxide 33 H Anion Gap 4 L BUN 27 H Creatinine 0.99 Est GFR ( Amer) > 60 Est GFR (Non-Af Amer) > 60 Glucose 104 Calcium 8.7 Magnesium 1.8 Total Bilirubin 1.6 H AST 48 ALT 37 Alkaline Phosphatase 156 H Total Protein 7.3 Albumin 2.8 L 05/23/19 23:40 Saba Catheter Urine Culture - Final NO GROWTH 2 DAYS 05/23/19 05/24/19 05/24/19 23:10 01:50 04:10 Creatine Kinase 278 H CK-MB (CK-2) Troponin I 0.129 0.186 NT-Pro-B Natriuret Pep 3970 H 05/24/19 05/24/19 05/24/19 04:10 10:15 10:15 Creatine Kinase 249 H CK-MB (CK-2) 0.77 0.94 Troponin I 0.208 0.148 NT-Pro-B Natriuret Pep 05/24/19 05/24/19 16:30 16:30 Creatine Kinase 198 H CK-MB (CK-2) 1.01 Troponin I 0.101 NT-Pro-B Natriuret Pep Impressions: Head CT 05/23/19 23:26 IMPRESSION: No acute intracranial abnormality. Chest CT 05/24/19 00:00 IMPRESSION: 1. Overall, no significant change when compared to the prior study performed on 05/19/2019. 2. Bilateral pleural calcification and pleural thickening which may be due to underlying asbestos-related pleural disease. 3. Patchy bibasilar opacification likely due to scarring and/or atelectasis. No new infiltrate is identified since the prior study. 4. 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 There is also cardiomegaly with marked left atrial enlargement. 5. Partially calcified mediastinal and hilar lymph nodes. 6. Hyperinflation of the lungs. Chest X-Ray 05/26/19 06:00 IMPRESSION: Stable chest with persistent patchy interstitial and alveolar opacities, likely edema although infection is not excluded. Stable small bilateral effusions. Assessment & Plan - Diagnosis (1) Sepsis Qualifiers: Sepsis type: sepsis due to unspecified organism Qualified Code(s): A41.9 - Sepsis, unspecified organism Is this a current diagnosis for this admission?: Yes Plan: Continues to IV antibiotic (2) Acute kidney injury Is this a current diagnosis for this admission?: Yes Plan: Currently all improving (3) Altered mental status Qualifiers: Altered mental status type: unspecified Qualified Code(s): R41.82 - Altered mental status, unspecified Is this a current diagnosis for this admission?: Yes Plan: Due to the sepsis and the multiple other etiology currently getting better (4) Elevated troponin Is this a current diagnosis for this admission?: Yes Plan: Due to the most likely hypotension and the sepsis but with the significant underlying coronary disease and heart failure we will consult the cardiology (5) Hypotension Qualifiers: Hypotension type: unspecified hypotension type Qualified Code(s): I95.9 - Hypotension, unspecified Is this a current diagnosis for this admission?: Yes Plan: Currently all resolved (6) Interstitial lung disease Is this a current diagnosis for this admission?: Yes Plan: Follow with the pulmonary (7) Pneumonia Qualifiers: Pneumonia type: due to unspecified organism Laterality: bilateral Lung location: unspecified part of lung Qualified Code(s): J18.9 - Pneumonia, unspecified organism Is this a current diagnosis for this admission?: Yes Plan: Continues to IV antibiotic (8) Unintentional weight loss Is this a current diagnosis for this admission?: Yes (9) Hemoptysis Is this a current diagnosis for this admission?: Yes - Time Time Spent with patient: 25-34 minutes Medications reviewed and adjusted accordingly: Yes Anticipated discharge: Home Within: Other - Plan Summary Plan Summary: Continues to IV antibiotic continues to physical therapy discussed with the at the bedside regarding the patient's current conditions
[2019-05-27] MEDS ORDERED: LEVOFLOXACIN 750 MG TABLET PO SCH (13:00)
[2019-05-27] MEDS: LEVOFLOXACIN 750 MG TABLET PO SCH (13:06)
--- NOTE | 2019-05-27 13:18 | PDOC CONSULTATION ---
Consultation Consult Date: 05/24/19 Attending physician:: JUAN R MANRIQUE Provider Consulted: WILSON NEAL Consult reason:: Acute respiratory failure/hemoptysis History of Present Illness Admission Date/PCP: 05/24/19 04:11 PEÑA OLIVER MD History of Present Illness: ZACH MIRANDA SR is a 64 year old male presented after prolonged illness increasing shortness of breath weight loss weakness presentation he also complained of hemoptysis occasions he admits to shortness of breath at rest as well as dyspnea on exertion the status is unknown no history of chronic lung disease as a child or adolescent. Admits to exposure large amounts of passive smoke as a child as well as an adult. He himself smoked 1 pack/day x 50 years. 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 He has no pets no recent travel no angina-like chest pain sleeps on 1-2 pillows occasional PND no nocturnal cough is admitted no edema. He denies any weight unaware of any consistent snoring restless sleep nocturia perhaps once or twice a night no unrestful sleep or excessive daytime somnolence Past Medical History Cardiac Medical History: Reports: Atrial Fibrillation, Congestive Heart Failure, Hypertension Pulmonary Medical History: Reports: Bronchitis, Chronic Obstructive Pulmonary Disease (COPD), Respiratory Failure Endocrine Medical History: Reports: None Renal/ Medical History: Reports: Nephrolithiasis Malignancy Medical History: Reports: None GI Medical History: Denies: Cirrhosis, Crohn's Disease, Ulcerative Colitis Musculoskeltal Medical History: Denies: Fibromyalgia Skin Medical History: Denies: Psoriasis Psychiatric Medical History: Reports: Tobacco Dependency Traumatic Medical History: Denies: Gunshot Wound, Stab Wound Hematology: Denies: Sickle Cell Disease Infectious Medical History: Denies: HIV Social History Information Source: Relative, [facility] Records 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 Lives with: Spouse/Significant other Smoking Status: Current Every Day Smoker Cigarettes Packs Per Day: 1 Number of Years Smokin Passive smoke exposure as: Both Frequency of Alcohol Use: None Hx Recreational Drug Use: No Hx Prescription Drug Abuse: No Do you have pets?: No Have you had any respiratory illnesses as a child?: No Have you had any recent respiratory illnesses?: Yes Have you travelled outside of [place] in the past 12 months?: No - Advance Directive Resuscitation Status: Do Not Resuscitate Family History Family History: Hypertension Parental Family History Reviewed: Yes Children Family History Reviewed: Yes Sibling(s) Family History Reviewed.: Yes Medication/Allergy Home Medications: Apixaban [Eliquis 5 mg Tablet] 5 mg PO BID 05/24/19 Cholecalciferol (Vitamin D3) [D3-2000] 2,000 unit PO DAILY 05/24/19 Flecainide Acetate [Tambocor 100 Mg Tablet] 50 mg PO Q12H 05/24/19 Furosemide [Lasix 40 mg Tablet] 40 mg PO BID 05/24/19 Metolazone [Zaroxolyn 5 Mg Tablet] 5 mg PO BID 05/24/19 Metoprolol Succinate [Toprol Xl 25 mg Tab.sr] 12.5 mg PO DAILY 05/24/19 Omeprazole 40 mg PO DAILY 05/24/19 Potassium Chloride [Klor-Con M20] 40 meq PO BID 05/24/19 Allergies/Adverse Reactions: tramadol Allergy (Verified 05/19/19 15:45) VOMITING Review of Systems ROS unobtainable: Due to mental status Constitutional: PRESENT: anorexia, fatigue, weight loss Eyes: ABSENT: visual disturbances Ears: ABSENT: hearing changes Nose, Mouth, and Throat: ABSENT: mouth pain, sore throat Cardiovascular: PRESENT: dyspnea on exertion. ABSENT: edema, orthropnea, palpitations Respiratory: PRESENT: cough, dyspnea, hemoptysis, sputum Gastrointestinal: ABSENT: abdominal pain, bloating, coffee ground emesis, dysphagia, hematemesis, hematochezia, melena Genitourinary: ABSENT: dysuria, hematuria, nocturia Integumentary: ABSENT: pruritus, rash Neurological: PRESENT: focal weakness, other - increase somnolence. ABSENT: abnormal gait, abnormal movements, abnormal speech, confusion, frequent falls, lack of coordination, memory loss, numbness Psychiatric: ABSENT: hallucinations, homidical ideation, suicidal ideation Endocrine: ABSENT: cold intolerance, heat intolerance, polydipsia, polyuria Hematologic/Lymphatic: ABSENT: lymphadenopathy Allergic/Immunologic: ABSENT: seasonal rhinorrhea Physical Exam Vital Signs: Temp Pulse Resp BP Pulse Ox 98.4 F 104 H 15 106/76 100 05/26/19 12:00 05/26/19 12:00 05/26/19 12:00 05/26/19 12:00 05/26/19 12:00 Intake & Output 05/25/19 05/26/19 05/27/19 06:59 06:59 06:59 Intake Total 2448 9543 4576 Output Total 533 2285 300 Balance 1905 1618 1936 Weight 70.6 kg 75.2 kg General appearance: PRESENT: disheveled, mild distress, thin Head exam: PRESENT: atraumatic, normocephalic Eye exam: PRESENT: conjunctiva pale, EOMI. ABSENT: nystagmus, periorbital swelling, scleral icterus Mouth exam: PRESENT: dry mucosa, neck supple, tongue midline Neck exam: ABSENT: carotid bruit, full ROM, JVD, lymphadenopathy, meningismus, tenderness, thyromegaly, tracheal deviation, tracheostomy, other Respiratory exam: PRESENT: decreased breath sounds, prolonged expiratory phas, rales, rhonchi, symmetrical, wheezes. ABSENT: retraction, stridor Cardiovascular exam: PRESENT: RRR, +S1, +S2, tachycardia Pulses: PRESENT: normal radial pulses GI/Abdominal exam: PRESENT: hypoactive bowel sounds, soft. ABSENT: mass, tenderness Extremities exam: ABSENT: calf tenderness, clubbing, joint swelling, pedal edema, tenderness Musculoskeletal exam: ABSENT: deformity, dislocation Neurological exam: PRESENT: altered, awake Psychiatric exam: PRESENT: flat affect Skin exam: PRESENT: dry, warm Results Laboratory Results: 05/26/19 03:40 05/26/19 03:40 05/26/19 05/26/19 05/26/19 03:40 03:40 03:40 WBC 8.9 RBC 3.21 L Hgb 9.8 L Hct 29.8 L MCV 93 MCH 30.6 MCHC 33.0 RDW 19.0 H Plt Count 161 Seg Neutrophils % 86.0 H Lymphocytes % 6.4 L Monocytes % 6.2 Eosinophils % 1.1 Basophils % 0.3 Absolute Neutrophils 7.6 Absolute Lymphocytes 0.6 Absolute Monocytes 0.5 Absolute Eosinophils 0.1 Absolute Basophils 0.0 Carbonic Acid 1.54 H HCO3/H2CO3 Ratio 20:1 ABG pH 7.41 ABG pCO2 51.3 H ABG pO2 100.4 H ABG HCO3 31.9 H ABG O2 Saturation 97.5 ABG Base Excess 6.2 FiO2 3 L Sodium 132.8 L Potassium 4.3 Chloride 95 L Carbon Dioxide 32 H Anion Gap 6 BUN 43 H Creatinine 1.34 H Est GFR ( Amer) > 60 Est GFR (Non-Af Amer) 54 L Glucose 134 H Calcium 8.7 Magnesium 1.8 Total Bilirubin 1.5 H AST 51 ALT 34 Alkaline Phosphatase 138 H Total Protein 7.1 Albumin 2.7 L 05/23/19 23:40 Saba Catheter Urine Culture - Final NO GROWTH 2 DAYS 05/23/19 05/24/19 05/24/19 23:10 01:50 04:10 Creatine Kinase 278 H CK-MB (CK-2) Troponin I 0.129 0.186 NT-Pro-B Natriuret Pep 3970 H 05/24/19 05/24/19 05/24/19 04:10 10:15 10:15 Creatine Kinase 249 H CK-MB (CK-2) 0.77 0.94 Troponin I 0.208 0.148 NT-Pro-B Natriuret Pep 05/24/19 05/24/19 16:30 16:30 Creatine Kinase 198 H CK-MB (CK-2) 1.01 Troponin I 0.101 NT-Pro-B Natriuret Pep Impressions: Head CT 05/23/19 23:26 IMPRESSION: No acute intracranial abnormality. Chest CT 05/24/19 00:00 IMPRESSION: 1. Overall, no significant change when compared to the prior study performed on 05/19/2019. 2. Bilateral pleural calcification and pleural thickening which may be due to underlying asbestos-related pleural disease. 3. Patchy bibasilar opacification likely due to scarring and/or atelectasis. No new infiltrate is identified since the prior study. 4. 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 There is also cardiomegaly with marked left atrial enlargement. 5. Partially calcified mediastinal and hilar lymph nodes. 6. Hyperinflation of the lungs. Chest X-Ray 05/26/19 06:00 IMPRESSION: Stable chest with persistent patchy interstitial and alveolar opacities, likely edema although infection is not excluded. Stable small bilateral effusions. Assessment & Plan - Diagnosis (1) Cough with hemoptysis Is this a current diagnosis for this admission?: Yes Plan: Cannot rule out TB as patient has had large exposure to silicone and silicosis predisposes to tuberculosis (2) Interstitial lung disease Is this a current diagnosis for this admission?: Yes Plan: Pleural plaques treatment patient has had some exposure to asbestos as well (3) Leukocytosis Qualifiers: Leukocytosis type: bandemia Qualified Code(s): D72.825 - Bandemia Is this a current diagnosis for this admission?: Yes (4) Tobacco dependence Is this a current diagnosis for this admission?: Yes Plan: Transdermal nicotine - Time Total Critical Time (Minutes): 55
--- NOTE | 2019-05-27 13:20 | PDOC PROGRESS REPORT ---
Subjective Progress Note for:: 05/25/19 Subjective:: Unchanged remains tachypneic Reason For Visit: SEPSIS,BILATERAL PNEUMONIA Physical Exam Vital Signs: Temp Pulse Resp BP Pulse Ox 97.0 F 102 H 18 111/81 96 05/25/19 08:00 05/25/19 08:00 05/25/19 08:00 05/25/19 08:00 05/25/19 08:00 Intake & Output 05/24/19 05/25/19 05/26/19 06:59 06:59 06:59 Intake Total 2127 2442 197 Output Total 55 537 125 Balance 2072 1905 72 Weight 67.7 kg 70.6 kg General appearance: PRESENT: no acute distress, cooperative, disheveled, thin Head exam: PRESENT: atraumatic, normocephalic Eye exam: PRESENT: conjunctiva pale, EOMI. ABSENT: nystagmus, periorbital swelling Mouth exam: PRESENT: dry mucosa, neck supple, tongue midline Neck exam: ABSENT: carotid bruit, full ROM, JVD, lymphadenopathy, meningismus, tenderness, thyromegaly, tracheal deviation, tracheostomy, other Respiratory exam: PRESENT: decreased breath sounds, prolonged expiratory phas, rales, rhonchi, unlabored, wheezes. ABSENT: retraction, stridor Cardiovascular exam: PRESENT: RRR, +S1, tachycardia Pulses: PRESENT: normal radial pulses GI/Abdominal exam: PRESENT: hypoactive bowel sounds, soft. ABSENT: mass, tenderness Extremities exam: ABSENT: calf tenderness, clubbing, joint swelling, pedal edema Musculoskeletal exam: ABSENT: deformity, dislocation Neurological exam: PRESENT: altered, awake Psychiatric exam: PRESENT: flat affect Skin exam: PRESENT: dry, warm Results Laboratory Results: 05/25/19 03:30 05/25/19 03:30 05/25/19 05/25/19 05/25/19 03:30 03:30 03:30 WBC 18.3 H RBC 3.58 L Hgb 10.8 L Hct 33.4 L MCV 93 MCH 30.2 MCHC 32.4 RDW 19.1 H Plt Count 210 Seg Neutrophils % Not Reportable Lymphocytes % Not Reportable Monocytes % Not Reportable Eosinophils % Not Reportable Basophils % Not Reportable Absolute Neutrophils Not Reportable Absolute Lymphocytes Not Reportable Absolute Monocytes Not Reportable Absolute Eosinophils Not Reportable Absolute Basophils Not Reportable Carbonic Acid 1.18 HCO3/H2CO3 Ratio 21:1 ABG pH 7.43 ABG pCO2 39.2 ABG pO2 125.4 H ABG HCO3 25.5 H ABG O2 Saturation 98.6 H ABG Base Excess 1.2 FiO2 28% Sodium 133.8 L Potassium 4.2 Chloride 96 L Carbon Dioxide 28 Anion Gap 10 BUN 52 H Creatinine 1.80 H Est GFR ( Amer) 46 L Est GFR (Non-Af Amer) 38 L Glucose 157 H Calcium 8.8 Magnesium 1.8 Total Bilirubin 1.7 H AST 49 ALT 21 Alkaline Phosphatase 161 H Total Protein 7.5 Albumin 2.9 L Triglycerides 35 Cholesterol 70.33 LDL Cholesterol Direct 30 VLDL Cholesterol 7.0 L HDL Cholesterol 26 L 05/25/19 02:22 Sputum Gram Stain - Final 05/25/19 02:22 Sputum Sputum Culture - Final 05/23/19 05/24/19 05/24/19 23:10 01:50 04:10 Creatine Kinase 278 H CK-MB (CK-2) Troponin I 0.129 0.186 NT-Pro-B Natriuret Pep 3970 H 05/24/19 05/24/19 05/24/19 04:10 10:15 10:15 Creatine Kinase 249 H CK-MB (CK-2) 0.77 0.94 Troponin I 0.208 0.148 NT-Pro-B Natriuret Pep 05/24/19 05/24/19 16:30 16:30 Creatine Kinase 198 H CK-MB (CK-2) 1.01 Troponin I 0.101 NT-Pro-B Natriuret Pep Impressions: Head CT 05/23/19 23:26 IMPRESSION: No acute intracranial abnormality. Chest CT 05/24/19 00:00 IMPRESSION: 1. Overall, no significant change when compared to the prior study performed on 05/19/2019. 2. Bilateral pleural calcification and pleural thickening which may be due to underlying asbestos-related pleural disease. 3. Patchy bibasilar opacification likely due to scarring and/or atelectasis. No new infiltrate is identified since the prior study. 4. 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 There is also cardiomegaly with marked left atrial enlargement. 5. Partially calcified mediastinal and hilar lymph nodes. 6. Hyperinflation of the lungs. Assessment & Plan - Diagnosis (1) Cough with hemoptysis Is this a current diagnosis for this admission?: Yes Plan: Cannot rule out TB as patient has had large exposure to silicone and silicosis predisposes to tuberculosis (2) Interstitial lung disease Is this a current diagnosis for this admission?: Yes Plan: Pleural plaques treatment patient has had some exposure to asbestos as well (3) Pneumonia Qualifiers: Pneumonia type: due to unspecified organism Laterality: bilateral Lung location: unspecified part of lung Qualified Code(s): J18.9 - Pneumonia, unspecified organism Is this a current diagnosis for this admission?: Yes Plan: No cough positive cultures thus far (4) Tobacco dependence Is this a current diagnosis for this admission?: Yes Plan: Transdermal nicotine (5) Unintentional weight loss Is this a current diagnosis for this admission?: Yes Plan: I am suspicious for tuberculosis or malignancy - Time Total Critical Time (Minutes): 45
--- NOTE | 2019-05-27 13:22 | PDOC PROGRESS REPORT ---
Subjective Progress Note for:: 05/26/19 Subjective:: improving Reason For Visit: SEPSIS,BILATERAL PNEUMONIA Physical Exam Vital Signs: Temp Pulse Resp BP Pulse Ox 98.1 F 97 13 102/75 99 05/26/19 08:00 05/26/19 08:00 05/26/19 08:00 05/26/19 08:00 05/26/19 08:50 Intake & Output 05/25/19 05/26/19 05/27/19 06:59 06:59 06:59 Intake Total 2442 3483 Output Total 537 1865 50 Balance 1905 1618 -50 Weight 70.6 kg 75.2 kg General appearance: PRESENT: no acute distress, cooperative, disheveled, thin Head exam: PRESENT: atraumatic, normocephalic Eye exam: PRESENT: conjunctiva pale, EOMI. ABSENT: nystagmus, periorbital swelling Mouth exam: PRESENT: dry mucosa, neck supple, tongue midline Teeth exam: PRESENT: poor dentation Neck exam: ABSENT: carotid bruit, full ROM, JVD, lymphadenopathy, meningismus, tenderness, thyromegaly, tracheal deviation, tracheostomy, other Respiratory exam: PRESENT: decreased breath sounds, prolonged expiratory phas, rhonchi, unlabored. ABSENT: retraction, stridor Cardiovascular exam: PRESENT: RRR, +S1, +S2 Pulses: PRESENT: normal radial pulses GI/Abdominal exam: PRESENT: hypoactive bowel sounds, soft. ABSENT: mass, tenderness Extremities exam: ABSENT: calf tenderness, clubbing, joint swelling, pedal edema, tenderness Musculoskeletal exam: ABSENT: deformity, dislocation Neurological exam: PRESENT: altered, awake Psychiatric exam: PRESENT: flat affect Skin exam: PRESENT: dry, warm Results Laboratory Results: 05/26/19 03:40 05/26/19 03:40 05/26/19 05/26/19 05/26/19 03:40 03:40 03:40 WBC 8.9 RBC 3.21 L Hgb 9.8 L Hct 29.8 L MCV 93 MCH 30.6 MCHC 33.0 RDW 19.0 H Plt Count 161 Seg Neutrophils % 86.0 H Lymphocytes % 6.4 L Monocytes % 6.2 Eosinophils % 1.1 Basophils % 0.3 Absolute Neutrophils 7.6 Absolute Lymphocytes 0.6 Absolute Monocytes 0.5 Absolute Eosinophils 0.1 Absolute Basophils 0.0 Carbonic Acid 1.54 H HCO3/H2CO3 Ratio 20:1 ABG pH 7.41 ABG pCO2 51.3 H ABG pO2 100.4 H ABG HCO3 31.9 H ABG O2 Saturation 97.5 ABG Base Excess 6.2 FiO2 3 L Sodium 132.8 L Potassium 4.3 Chloride 95 L Carbon Dioxide 32 H Anion Gap 6 BUN 43 H Creatinine 1.34 H Est GFR ( Amer) > 60 Est GFR (Non-Af Amer) 54 L Glucose 134 H Calcium 8.7 Magnesium 1.8 Total Bilirubin 1.5 H AST 51 ALT 34 Alkaline Phosphatase 138 H Total Protein 7.1 Albumin 2.7 L 05/23/19 23:40 Saba Catheter Urine Culture - Final NO GROWTH 2 DAYS 05/25/19 02:22 Sputum Gram Stain - Final 05/25/19 02:22 Sputum Sputum Culture - Final 05/23/19 05/24/19 05/24/19 23:10 01:50 04:10 Creatine Kinase 278 H CK-MB (CK-2) Troponin I 0.129 0.186 NT-Pro-B Natriuret Pep 3970 H 05/24/19 05/24/19 05/24/19 04:10 10:15 10:15 Creatine Kinase 249 H CK-MB (CK-2) 0.77 0.94 Troponin I 0.208 0.148 NT-Pro-B Natriuret Pep 05/24/19 05/24/19 16:30 16:30 Creatine Kinase 198 H CK-MB (CK-2) 1.01 Troponin I 0.101 NT-Pro-B Natriuret Pep Impressions: Head CT 05/23/19 23:26 IMPRESSION: No acute intracranial abnormality. Chest CT 05/24/19 00:00 IMPRESSION: 1. Overall, no significant change when compared to the prior study performed on 05/19/2019. 2. Bilateral pleural calcification and pleural thickening which may be due to underlying asbestos-related pleural disease. 3. Patchy bibasilar opacification likely due to scarring and/or atelectasis. No new infiltrate is identified since the prior study. 4. 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 There is also cardiomegaly with marked left atrial enlargement. 5. Partially calcified mediastinal and hilar lymph nodes. 6. Hyperinflation of the lungs. Chest X-Ray 05/26/19 06:00 IMPRESSION: Stable chest with persistent patchy interstitial and alveolar opacities, likely edema although infection is not excluded. Stable small bilateral effusions. Assessment & Plan - Diagnosis (1) Cough with hemoptysis Is this a current diagnosis for this admission?: Yes Plan: Cannot rule out TB as patient has had large exposure to silicone and silicosis predisposes to tuberculosis (2) Interstitial lung disease Is this a current diagnosis for this admission?: Yes Plan: Pleural plaques treatment patient has had some exposure to asbestos as well (3) Pneumonia Qualifiers: Pneumonia type: due to unspecified organism Laterality: bilateral Lung location: unspecified part of lung Qualified Code(s): J18.9 - Pneumonia, unspecified organism Is this a current diagnosis for this admission?: Yes Plan: No cough positive cultures thus far (4) Tobacco dependence Is this a current diagnosis for this admission?: Yes Plan: Transdermal nicotine - Time Total Critical Time (Minutes): 45
--- NOTE | 2019-05-27 13:25 | PDOC PROGRESS REPORT ---
Subjective Progress Note for:: 05/27/19 Subjective:: Slightly improved Reason For Visit: SEPSIS,BILATERAL PNEUMONIA Physical Exam Vital Signs: Temp Pulse Resp BP Pulse Ox 98.6 F 103 H 24 H 103/69 96 05/27/19 08:00 05/27/19 08:00 05/27/19 08:09 05/27/19 08:09 05/27/19 09:17 Intake & Output 05/26/19 05/27/19 05/28/19 06:59 06:59 06:59 Intake Total 3483 3536 Output Total 1865 1200 150 Balance 1618 2336 -150 Weight 75.2 kg 80.2 kg General appearance: ABSENT: no acute distress, disheveled Head exam: PRESENT: atraumatic, normocephalic Eye exam: PRESENT: conjunctiva pale, EOMI. ABSENT: nystagmus, periorbital swelling, scleral icterus Mouth exam: PRESENT: dry mucosa, neck supple, tongue midline Neck exam: ABSENT: carotid bruit, full ROM, JVD, lymphadenopathy, meningismus, tenderness, thyromegaly, tracheal deviation, tracheostomy, other Respiratory exam: PRESENT: decreased breath sounds, prolonged expiratory phas, rales, rhonchi, unlabored. ABSENT: retraction, stridor Cardiovascular exam: PRESENT: RRR, +S1, +S2 Pulses: PRESENT: normal radial pulses GI/Abdominal exam: PRESENT: hypoactive bowel sounds, soft. ABSENT: mass, tenderness Extremities exam: ABSENT: calf tenderness, clubbing, joint swelling, pedal edema, tenderness Musculoskeletal exam: ABSENT: deformity, dislocation Neurological exam: PRESENT: altered, awake Psychiatric exam: PRESENT: flat affect Skin exam: PRESENT: dry, warm Results Laboratory Results: 05/26/19 03:40 05/27/19 04:37 05/27/19 04:37 Sodium 135.0 L Potassium 4.4 Chloride 98 Carbon Dioxide 33 H Anion Gap 4 L BUN 27 H Creatinine 0.99 Est GFR ( Amer) > 60 Est GFR (Non-Af Amer) > 60 Glucose 104 Calcium 8.7 Magnesium 1.8 Total Bilirubin 1.6 H AST 48 ALT 37 Alkaline Phosphatase 156 H Total Protein 7.3 Albumin 2.8 L 05/23/19 23:40 Saba Catheter Urine Culture - Final NO GROWTH 2 DAYS 05/23/19 05/24/19 05/24/19 23:10 01:50 04:10 Creatine Kinase 278 H CK-MB (CK-2) Troponin I 0.129 0.186 NT-Pro-B Natriuret Pep 3970 H 05/24/19 05/24/19 05/24/19 04:10 10:15 10:15 Creatine Kinase 249 H CK-MB (CK-2) 0.77 0.94 Troponin I 0.208 0.148 NT-Pro-B Natriuret Pep 05/24/19 05/24/19 16:30 16:30 Creatine Kinase 198 H CK-MB (CK-2) 1.01 Troponin I 0.101 NT-Pro-B Natriuret Pep Impressions: Head CT 05/23/19 23:26 IMPRESSION: No acute intracranial abnormality. Chest CT 05/24/19 00:00 IMPRESSION: 1. Overall, no significant change when compared to the prior study performed on 05/19/2019. 2. Bilateral pleural calcification and pleural thickening which may be due to underlying asbestos-related pleural disease. 3. Patchy bibasilar opacification likely due to scarring and/or atelectasis. No new infiltrate is identified since the prior study. 4. 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 There is also cardiomegaly with marked left atrial enlargement. 5. Partially calcified mediastinal and hilar lymph nodes. 6. Hyperinflation of the lungs. Chest X-Ray 05/26/19 06:00 IMPRESSION: Stable chest with persistent patchy interstitial and alveolar opacities, likely edema although infection is not excluded. Stable small bilat eral effusions. Assessment & Plan - Diagnosis (1) Cough with hemoptysis Is this a current diagnosis for this admission?: Yes Plan: Cannot rule out TB as patient has had large exposure to silicone and silicosis predisposes to tuberculosis (2) Interstitial lung disease Is this a current diagnosis for this admission?: Yes Plan: Discussed with surgery Dr. Moise patient will be reasonable candidate for VATS when stabilized (3) Pneumonia Qualifiers: Pneumonia type: due to unspecified organism Laterality: bilateral Lung location: unspecified part of lung Qualified Code(s): J18.9 - Pneumonia, unspecified organism Is this a current diagnosis for this admission?: Yes Plan: No cough positive cultures thus far (4) Tobacco dependence Is this a current diagnosis for this admission?: Yes Plan: Transdermal nicotine - Time Total Critical Time (Minutes): 40
[2019-05-28] MEDS: PIPERACILLIN SODIUM/TAZOBACTAM 4.5 GM in NORMAL SALINE 100 ML IV SCH ×4 (02:09→21:50)
[2019-05-28 03:53] LABS: ABSOLUTE EOSINOPHILS # (AUTO) 0.2 10^3/uL (0.0-0.6); ABSOLUTE LYMPHOCYTES (AUTO) 0.5 10^3/uL (0.5-4.7); ABSOLUTE MONOCYTES (AUTO) 0.6 10^3/uL (0.1-1.4); ABSOLUTE NEUT (AUTO) 4.1 10^3/uL (1.7-8.2); BASOPHILS % (AUTO) 0.5 % (0-2); EOSINOPHILS % (AUTO) 2.8 % (0-6); HEMATOCRIT 29.7 % (37.9-51.0); HEMOGLOBIN 9.7 g/dL (13.5-17.0); LYMPHOCYTES % (AUTO) 9.4 % (13-45); MEAN CORPUSCULAR HEMOGLOBIN 30.2 pg (27.0-33.4); MEAN CORPUSCULAR HGB CONC 32.8 g/dL (32.0-36.0); MEAN CORPUSCULAR VOLUME 92 fl (80-97); MONOCYTES % (AUTO) 10.5 % (3-13); PLATELET COUNT 154 10^3/uL (150-450); RED BLOOD COUNT 3.22 10^6/uL (4.35-5.55); RED CELL DISTRIBUTION WIDTH 18.2 % (11.5-14.0); SEGMENTED NEUTROPHILS % (AUTO) 76.8 % (42-78); TOTAL CELLS COUNTED % (AUTO) 100 %; WHITE BLOOD COUNT 5.3 10^3/uL (4.0-10.5)
[2019-05-28 04:15] LABS: ALANINE AMINOTRANSFERASE 42 U/L (21-72); ALBUMIN 2.9 g/dL (3.5-5.0); ALKALINE PHOSPHATASE 175 U/L (38-126); ANION GAP 5 (5-19); ASPARTATE AMINO TRANSFERASE 46 U/L (17-59); BILIRUBIN,DIRECT 1.3 mg/dL (0.0-0.4); BLOOD UREA NITROGEN 21 mg/dL (7-20); CALCIUM 8.9 mg/dL (8.4-10.2); CARBON DIOXIDE 29 mmol/L (22-30); CHLORIDE 101 mmol/L (98-107); GLUCOSE 88 mg/dL (75-110); POTASSIUM 4.3 mmol/L (3.6-5.0); TOTAL PROTEIN 7.3 g/dL (6.3-8.2)
[2019-05-28 05:02] LABS: ARTERIAL BLOOD BASE EXCESS 4.2 mmol/L; ARTERIAL BLOOD H2CO3 1.47 mmol/L (1.05-1.35); ARTERIAL BLOOD HCO3 29.7 mmol/L (20-24); ARTERIAL BLOOD O2 SATURATION 95.2 % (94-98); ARTERIAL BLOOD PCO2 48.9 mmHg (35-45); ARTERIAL BLOOD PO2 76.8 mmHg (80-100); ARTERIAL BLOOD TOTAL CO2 31.2 mmol/L (23-27)
[2019-05-28 05:11] LABS: ARTERIAL BLOOD FIO2 3L
[2019-05-28] MEDS: MIDODRINE HCL 5 MG TABLET PO SCH ×3 (09:04→17:52)
[2019-05-28] MEDS: APIXABAN 5 MG TABLET PO SCH ×2 (09:04→21:51)
[2019-05-28] MEDS: PANTOPRAZOLE SODIUM 40 MG TABLET.DR PO SCH (09:04)
--- NOTE | 2019-05-28 09:11 | PDOC PROGRESS REPORT ---
Subjective Progress Note for:: 05/28/19 Subjective:: Patient is currently doing well Swelling in the lower extremity with ongoing chronic mild swelling in the scrotum area Noted some sabas-colored urine No chest pain no short of breath No fever No require any pressor support Reason For Visit: SEPSIS,BILATERAL PNEUMONIA Physical Exam Vital Signs: Temp Pulse Resp BP Pulse Ox 99.0 F 101 H 16 114/65 97 05/28/19 08:00 05/28/19 08:00 05/28/19 08:00 05/28/19 08:00 05/28/19 08:00 Intake & Output 05/27/19 05/28/19 05/29/19 06:59 06:59 06:59 Intake Total 3536 400 Output Total 1200 1215 80 Balance 2336 -815 -80 Weight 80.2 kg 81.1 kg General appearance: PRESENT: no acute distress, thin Head exam: PRESENT: atraumatic, normocephalic Eye exam: PRESENT: conjunctiva pink, EOMI, PERRLA. ABSENT: scleral icterus Ear exam: PRESENT: normal external ear exam Mouth exam: PRESENT: moist, tongue midline Neck exam: PRESENT: full ROM. ABSENT: carotid bruit, JVD, lymphadenopathy, thyromegaly Respiratory exam: PRESENT: clear to auscultation joe Cardiovascular exam: PRESENT: RRR. ABSENT: diastolic murmur, rubs, systolic murmur Vascular exam: PRESENT: normal capillary refill GI/Abdominal exam: PRESENT: normal bowel sounds, soft. ABSENT: distended, guarding, mass, organolmegaly, rebound, tenderness Rectal exam: PRESENT: deferred Extremities exam: PRESENT: pedal edema Neurological exam: PRESENT: alert, awake, oriented to person, oriented to place, oriented to time, oriented to situation, CN II-XII grossly intact. ABSENT: motor sensory deficit Psychiatric exam: PRESENT: appropriate affect, normal mood. ABSENT: homicidal ideation, suicidal ideation Skin exam: PRESENT: dry, intact, warm. ABSENT: cyanosis, rash Results Laboratory Results: 05/28/19 03:25 05/28/19 03:25 05/28/19 05/28/19 05/28/19 03:25 03:25 03:25 WBC 5.3 RBC 3.22 L Hgb 9.7 L Hct 29.7 L MCV 92 MCH 30.2 MCHC 32.8 RDW 18.2 H Plt Count 154 Seg Neutrophils % 76.8 Lymphocytes % 9.4 L Monocytes % 10.5 Eosinophils % 2.8 Basophils % 0.5 Absolute Neutrophils 4.1 Absolute Lymphocytes 0.5 Absolute Monocytes 0.6 Absolute Eosinophils 0.2 Absolute Basophils 0.0 Carbonic Acid Cancelled HCO3/H2CO3 Ratio Cancelled ABG pH Cancelled ABG pCO2 Cancelled ABG pO2 Cancelled ABG HCO3 Cancelled ABG O2 Saturation Cancelled ABG Base Excess Cancelled FiO2 Cancelled Sodium 135.1 L Potassium 4.3 Chloride 101 Carbon Dioxide 29 Anion Gap 5 BUN 21 H Creatinine 0.82 Est GFR ( Amer) > 60 Est GFR (Non-Af Amer) > 60 Glucose 88 Calcium 8.9 Magnesium 1.8 Total Bilirubin 2.0 H AST 46 ALT 42 Alkaline Phosphatase 175 H Total Protein 7.3 Albumin 2.9 L 05/28/19 04:10 WBC RBC Hgb Hct MCV MCH MCHC RDW Plt Count Seg Neutrophils % Lymphocytes % Monocytes % Eosinophils % Basophils % Absolute Neutrophils Absolute Lymphocytes Absolute Monocytes Absolute Eosinophils Absolute Basophils Carbonic Acid 1.47 H HCO3/H2CO3 Ratio 20:1 ABG pH 7.40 ABG pCO2 48.9 H ABG pO2 76.8 L ABG HCO3 29.7 H ABG O2 Saturation 95.2 ABG Base Excess 4.2 FiO2 3L Sodium Potassium Chloride Carbon Dioxide Anion Gap BUN Creatinine Est GFR ( Amer) Est GFR (Non-Af Amer) Glucose Calcium Magnesium Total Bilirubin AST ALT Alkaline Phosphatase Total Protein Albumin 05/23/19 05/24/19 05/24/19 23:10 01:50 04:10 Creatine Kinase 278 H CK-MB (CK-2) Troponin I 0.129 0.186 NT-Pro-B Natriuret Pep 3970 H 05/24/19 05/24/19 05/24/19 04:10 10:15 10:15 Creatine Kinase 249 H CK-MB (CK-2) 0.77 0.94 Troponin I 0.208 0.148 NT-Pro-B Natriuret Pep 05/24/19 05/24/19 16:30 16:30 Creatine Kinase 198 H CK-MB (CK-2) 1.01 Troponin I 0.101 NT-Pro-B Natriuret Pep Impressions: Head CT 07/27/19 23:26 IMPRESSION: No acute intracranial abnormality. Chest CT 05/24/19 00:00 IMPRESSION: 1. Overall, no significant change when compared to the prior study performed on 05/19/2019. 2. Bilateral pleural calcification and pleural thickening which may be due to underlying asbestos-related pleural disease. 3. Patchy bibasilar opacification likely due to scarring and/or atelectasis. No new infiltrate is identified since the prior study. 4. 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 There is also cardiomegaly with marked left atrial enlargement. 5. Partially calcified mediastinal and hilar lymph nodes. 6. Hyperinflation of the lungs. Chest X-Ray 05/26/19 06:00 IMPRESSION: Stable chest with persistent patchy interstitial and alveolar opacities, likely edema although infection is not excluded. Stable small bilateral effusions. Assessment & Plan - Diagnosis (1) Sepsis Qualifiers: Sepsis type: sepsis due to unspecified organism Qualified Code(s): A41.9 - Sepsis, unspecified organism Is this a current diagnosis for this admission?: Yes Plan: Continues to IV antibiotic (2) Acute kidney injury Is this a current diagnosis for this admission?: Yes Plan: Currently all improving (3) Altered mental status Qualifiers: Altered mental status type: unspecified Qualified Code(s): R41.82 - Altered mental status, unspecified Is this a current diagnosis for this admission?: Yes (4) Elevated troponin Is this a current diagnosis for this admission?: Yes Plan: Due to the most likely hypotension and the sepsis but with the significant underlying coronary disease and heart failure we will consult the cardiology (5) Hypotension Qualifiers: Hypotension type: unspecified hypotension type Qualified Code(s): I95.9 - Hypotension, unspecified Is this a current diagnosis for this admission?: Yes Plan: Currently all resolved (6) Interstitial lung disease Is this a current diagnosis for this admission?: Yes Plan: Follow with the pulmonary (7) Pneumonia Qualifiers: Pneumonia type: due to unspecified organism Laterality: bilateral Lung location: unspecified part of lung Qualified Code(s): J18.9 - Pneumonia, unspecified organism Is this a current diagnosis for this admission?: Yes Plan: Continues to IV antibiotic (8) Unintentional weight loss Is this a current diagnosis for this admission?: Yes (9) Hemoptysis Is this a current diagnosis for this admission?: Yes - Time Time Spent with patient: 25-34 minutes Medications reviewed and adjusted accordingly: Yes Anticipated discharge: Other Within: Other - Plan Summary Plan Summary: We will start the patient on the Lasix 20 mg daily Continues to monitor the patient's And is to IV antibiotic Discussed with the patient and the on the bedside
[2019-05-28] MEDS: FUROSEMIDE INJ/PF 20 MG/2 ML SDV IV SCH (09:15)
[2019-05-28] MEDS: FLECAINIDE ACETATE 100 MG TABLET PO SCH ×2 (09:15→21:51)
[2019-05-28] MEDS: LEVOFLOXACIN 750 MG TABLET PO SCH (09:16)
[2019-05-29] MEDS: PIPERACILLIN SODIUM/TAZOBACTAM 4.5 GM in NORMAL SALINE 100 ML IV SCH ×3 (02:00→14:58)
[2019-05-29 05:32] LABS: ABSOLUTE EOSINOPHILS # (AUTO) 0.2 10^3/uL (0.0-0.6); ABSOLUTE LYMPHOCYTES (AUTO) 0.5 10^3/uL (0.5-4.7); ABSOLUTE MONOCYTES (AUTO) 0.6 10^3/uL (0.1-1.4); ABSOLUTE NEUT (AUTO) 4.5 10^3/uL (1.7-8.2); BASOPHILS % (AUTO) 0.8 % (0-2); EOSINOPHILS % (AUTO) 3.3 % (0-6); HEMATOCRIT 29.1 % (37.9-51.0); HEMOGLOBIN 9.6 g/dL (13.5-17.0); LYMPHOCYTES % (AUTO) 9.2 % (13-45); MEAN CORPUSCULAR HEMOGLOBIN 30.7 pg (27.0-33.4); MEAN CORPUSCULAR HGB CONC 33.1 g/dL (32.0-36.0); MEAN CORPUSCULAR VOLUME 93 fl (80-97); MONOCYTES % (AUTO) 10.4 % (3-13); PLATELET COUNT 168 10^3/uL (150-450); RED BLOOD COUNT 3.14 10^6/uL (4.35-5.55); RED CELL DISTRIBUTION WIDTH 18.2 % (11.5-14.0); SEGMENTED NEUTROPHILS % (AUTO) 76.3 % (42-78); TOTAL CELLS COUNTED % (AUTO) 100 %; WHITE BLOOD COUNT 5.9 10^3/uL (4.0-10.5)
[2019-05-29 05:43] LABS: ANION GAP 6 (5-19); BLOOD UREA NITROGEN 18 mg/dL (7-20); CARBON DIOXIDE 32 mmol/L (22-30); CHLORIDE 97 mmol/L (98-107); GLUCOSE 81 mg/dL (75-110); POTASSIUM 4.6 mmol/L (3.6-5.0)
[2019-05-29 06:06] LABS: ARTERIAL BLOOD BASE EXCESS 5.2 mmol/L; ARTERIAL BLOOD H2CO3 1.56 mmol/L (1.05-1.35); ARTERIAL BLOOD HCO3 31.1 mmol/L (20-24); ARTERIAL BLOOD O2 SATURATION 97.1 % (94-98); ARTERIAL BLOOD PCO2 51.8 mmHg (35-45); ARTERIAL BLOOD PO2 94.9 mmHg (80-100); ARTERIAL BLOOD TOTAL CO2 32.7 mmol/L (23-27)
[2019-05-29 06:10] LABS: ARTERIAL BLOOD FIO2 3L
[2019-05-29] MEDS: APIXABAN 5 MG TABLET PO SCH ×2 (09:12→21:38)
[2019-05-29] MEDS: MIDODRINE HCL 5 MG TABLET PO SCH ×3 (09:13→18:30)
[2019-05-29] MEDS: FUROSEMIDE INJ/PF 20 MG/2 ML SDV IV SCH (09:13)
[2019-05-29] MEDS: PANTOPRAZOLE SODIUM 40 MG TABLET.DR PO SCH (09:13)
[2019-05-29] MEDS: LEVOFLOXACIN 750 MG TABLET PO SCH (09:19)
[2019-05-29] MEDS: FLECAINIDE ACETATE 100 MG TABLET PO SCH ×2 (09:23→21:38)
--- NOTE | 2019-05-29 09:48 | PDOC PROGRESS REPORT ---
Subjective Progress Note for:: 05/29/19 Subjective:: Patient is currently doing well Patient is denied any chest pain to than any shortness of the breath Reason For Visit: SEPSIS,BILATERAL PNEUMONIA Physical Exam Vital Signs: Temp Pulse Resp BP Pulse Ox 97.3 F 100 22 H 108/79 100 05/29/19 08:04 05/29/19 08:04 05/29/19 08:04 05/29/19 08:04 05/29/19 08:04 Intake & Output 05/28/19 05/29/19 05/30/19 06:59 06:59 06:59 Intake Total 400 1060 Output Total 1215 1530 Balance -815 -470 Weight 81.1 kg 81.7 kg General appearance: PRESENT: no acute distress, thin Head exam: PRESENT: atraumatic, normocephalic Eye exam: PRESENT: conjunctiva pink, EOMI, PERRLA. ABSENT: scleral icterus Ear exam: PRESENT: normal external ear exam Mouth exam: PRESENT: moist, tongue midline Neck exam: PRESENT: full ROM. ABSENT: carotid bruit, JVD, lymphadenopathy, thyromegaly Respiratory exam: PRESENT: clear to auscultation joe Cardiovascular exam: PRESENT: RRR. ABSENT: diastolic murmur, rubs, systolic murmur Vascular exam: PRESENT: normal capillary refill GI/Abdominal exam: PRESENT: normal bowel sounds, soft. ABSENT: distended, guarding, mass, organolmegaly, rebound, tenderness Rectal exam: PRESENT: deferred Extremities exam: PRESENT: pedal edema Musculoskeletal exam: PRESENT: ambulatory Neurological exam: PRESENT: alert, awake, oriented to person, oriented to place, oriented to time, oriented to situation, CN II-XII grossly intact. ABSENT: motor sensory deficit Psychiatric exam: PRESENT: appropriate affect, normal mood. ABSENT: homicidal ideation, suicidal ideation Skin exam: PRESENT: dry, intact, warm. ABSENT: cyanosis, rash Results Laboratory Results: 05/29/19 05:11 05/29/19 05:11 05/29/19 05/29/19 05/29/19 05:11 05:11 05:11 WBC 5.9 RBC 3.14 L Hgb 9.6 L Hct 29.1 L MCV 93 MCH 30.7 MCHC 33.1 RDW 18.2 H Plt Count 168 Seg Neutrophils % 76.3 Lymphocytes % 9.2 L Monocytes % 10.4 Eosinophils % 3.3 Basophils % 0.8 Absolute Neutrophils 4.5 Absolute Lymphocytes 0.5 Absolute Monocytes 0.6 Absolute Eosinophils 0.2 Absolute Basophils 0.0 Carbonic Acid Cancelled HCO3/H2CO3 Ratio Cancelled ABG pH Cancelled ABG pCO2 Cancelled ABG pO2 Cancelled ABG HCO3 Cancelled ABG O2 Saturation Cancelled ABG Base Excess Cancelled FiO2 Cancelled Sodium 134.6 L Potassium 4.6 Chloride 97 L Carbon Dioxide 32 H Anion Gap 6 BUN 18 Creatinine 0.79 Est GFR ( Amer) > 60 Est GFR (Non-Af Amer) > 60 Glucose 81 Calcium 9.0 Magnesium 1.8 05/29/19 05:50 WBC RBC Hgb Hct MCV MCH MCHC RDW Plt Count Seg Neutrophils % Lymphocytes % Monocytes % Eosinophils % Basophils % Absolute Neutrophils Absolute Lymphocytes Absolute Monocytes Absolute Eosinophils Absolute Basophils Carbonic Acid 1.56 H HCO3/H2CO3 Ratio 19:1 ABG pH 7.40 ABG pCO2 51.8 H ABG pO2 94.9 ABG HCO3 31.1 H ABG O2 Saturation 97.1 ABG Base Excess 5.2 FiO2 3L Sodium Potassium Chloride Carbon Dioxide Anion Gap BUN Creatinine Est GFR ( Amer) Est GFR (Non-Af Amer) Glucose Calcium Magnesium 05/24/19 00:30 Blood Blood Culture - Final NO GROWTH IN 5 DAYS 05/23/19 23:10 Blood Blood Culture - Final NO GROWTH IN 5 DAYS 05/27/19 09:30 Sputum AFB Smear Concentration - Final 05/27/19 09:30 Sputum Acid Fast Bacilli Smear - Final 05/26/19 22:15 Sputum AFB Smear Concentration - Final 05/26/19 22:15 Sputum Acid Fast Bacilli Smear - Final 05/25/19 14:00 Sputum Gram Stain - Final 05/25/19 14:00 Sputum AFB Smear Concentration - Final 05/25/19 14:00 Sputum Acid Fast Bacilli Smear - Final 05/23/19 05/24/19 05/24/19 23:10 01:50 04:10 Creatine Kinase 278 H CK-MB (CK-2) Troponin I 0.129 0.186 NT-Pro-B Natriuret Pep 3970 H 05/24/19 05/24/19 05/24/19 04:10 10:15 10:15 Creatine Kinase 249 H CK-MB (CK-2) 0.77 0.94 Troponin I 0.208 0.148 NT-Pro-B Natriuret Pep 05/24/19 05/24/19 16:30 16:30 Creatine Kinase 198 H CK-MB (CK-2) 1.01 Troponin I 0.101 NT-Pro-B Natriuret Pep Impressions: Head CT 05/23/19 23:26 IMPRESSION: No acute intracranial abnormality. Chest CT 05/24/19 00:00 IMPRESSION: 1. Overall, no significant change when compared to the prior study performed on 05/19/2019. 2. Bilateral pleural calcification and pleural thickening which may be due to underlying asbestos-related pleural disease. 3. Patchy bibasilar opacification likely due to scarring and/or atelectasis. No new infiltrate is identified since the prior study. 4. 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 There is also cardiomegaly with marked left atrial enlargement. 5. Partially calcified mediastinal and hilar lymph nodes. 6. Hyperinflation of the lungs. Chest X-Ray 05/26/19 06:00 IMPRESSION: Stable chest with persistent patchy interstitial and alveolar opacities, likely edema although infection is not excluded. Stable small bilateral effusions. Assessment & Plan - Diagnosis (1) Sepsis Qualifiers: Sepsis type: sepsis due to unspecified organism Qualified Code(s): A41.9 - Sepsis, unspecified organism Is this a current diagnosis for this admission?: Yes Plan: Continues to IV antibiotic (2) Acute kidney injury Is this a current diagnosis for this admission?: Yes Plan: Currently all improving (3) Altered mental status Qualifiers: Altered mental status type: unspecified Qualified Code(s): R41.82 - Altered mental status, unspecified Is this a current diagnosis for this admission?: Yes Plan: Due to the sepsis and the multiple other etiology currently getting better (4) Elevated troponin Is this a current diagnosis for this admission?: Yes Plan: Due to the most likely hypotension and the sepsis but with the significant underlying coronary disease and heart failure we will consult the cardiology (5) Hypotension Qualifiers: Hypotension type: unspecified hypotension type Qualified Code(s): I95.9 - Hypotension, unspecified Is this a current diagnosis for this admission?: Yes Plan: Currently all resolved (6) Interstitial lung disease Is this a current diagnosis for this admission?: Yes Plan: Follow with the pulmonary (7) Pneumonia Qualifiers: Pneumonia type: due to unspecified organism Laterality: bilateral Lung lo cation: unspecified part of lung Qualified Code(s): J18.9 - Pneumonia, unspecified organism Is this a current diagnosis for this admission?: Yes Plan: Continues to IV antibiotic (8) Unintentional weight loss Is this a current diagnosis for this admission?: Yes (9) Hemoptysis Is this a current diagnosis for this admission?: Yes - Time Time Spent with patient: 15-24 minutes Medications reviewed and adjusted accordingly: Yes Anticipated discharge: Home, Home with Homehealth Within: Other - Plan Summary Plan Summary: Continues to physical therapy Continues to monitor
[2019-05-30 05:42] LABS: ANION GAP 6 (5-19); BLOOD UREA NITROGEN 16 mg/dL (7-20); CALCIUM 8.9 mg/dL (8.4-10.2); CARBON DIOXIDE 33 mmol/L (22-30); CHLORIDE 95 mmol/L (98-107); GLUCOSE 114 mg/dL (75-110); POTASSIUM 4.7 mmol/L (3.6-5.0)
[2019-05-30] MEDS: MIDODRINE HCL 5 MG TABLET PO SCH ×3 (09:27→17:39)
[2019-05-30] MEDS: APIXABAN 5 MG TABLET PO SCH ×2 (09:28→21:07)
[2019-05-30] MEDS: LEVOFLOXACIN 750 MG TABLET PO SCH (09:28)
[2019-05-30] MEDS: PANTOPRAZOLE SODIUM 40 MG TABLET.DR PO SCH (09:28)
[2019-05-30] MEDS: FUROSEMIDE INJ/PF 20 MG/2 ML SDV IV SCH (09:29)
[2019-05-30] MEDS: FLECAINIDE ACETATE 100 MG TABLET PO SCH ×2 (09:29→21:07)
--- NOTE | 2019-05-30 12:34 | PDOC PROGRESS REPORT ---
Subjective Progress Note for:: 05/30/19 Subjective:: Patient denied any chest pain or difficulty with breathing. No fever or chills. No nausea, vomiting or abdominal pain. Tolerating oral feeding. Reason For Visit: SEPSIS,BILATERAL PNEUMONIA Physical Exam Vital Signs: Temp Pulse Resp BP Pulse Ox 97.3 F 107 H 18 115/62 100 05/30/19 11:12 05/30/19 11:12 05/30/19 11:12 05/30/19 11:12 05/30/19 11:12 Intake & Output 05/29/19 05/30/19 05/31/19 06:59 06:59 06:59 Intake Total 1060 931 Output Total 1530 1010 Balance -470 -79 Weight 81.7 kg 87.5 kg General appearance: PRESENT: no acute distress Head exam: PRESENT: atraumatic, normocephalic Eye exam: PRESENT: conjunctiva pink. ABSENT: scleral icterus Ear exam: PRESENT: normal external ear exam Mouth exam: PRESENT: moist Respiratory exam: PRESENT: clear to auscultation joe, decreased breath sounds - at lung bases Cardiovascular exam: PRESENT: irregular rhythm, +S1, +S2 Vascular exam: ABSENT: pallor GI/Abdominal exam: PRESENT: normal bowel sounds. ABSENT: tenderness Extremities exam: PRESENT: pedal edema - bilateral pitting edema with chronic stasis skin changes Neurological exam: PRESENT: alert, awake, oriented to person, oriented to place, oriented to time, oriented to situation, CN II-XII grossly intact. ABSENT: motor sensory deficit Psychiatric exam: PRESENT: appropriate affect, normal mood. ABSENT: homicidal ideation, suicidal ideation Skin exam: PRESENT: dry, warm Results Laboratory Results: 05/29/19 05:11 05/30/19 03:50 05/30/19 03:50 Sodium 133.7 L Potassium 4.7 Chloride 95 L Carbon Dioxide 33 H Anion Gap 6 BUN 16 Creatinine 0.73 Est GFR ( Amer) > 60 Est GFR (Non-Af Amer) > 60 Glucose 114 H Calcium 8.9 05/25/19 14:00 Sputum Gram Stain - Final 05/25/19 14:00 Sputum Sputum Culture - Final Stenotrophomonas Maltophilia C.albicans/C.dubliniensis Normal Lidia Absent 05/23/19 05/24/19 05/24/19 23:10 01:50 04:10 Creatine Kinase 278 H CK-MB (CK-2) Troponin I 0.129 0.186 NT-Pro-B Natriuret Pep 3970 H 05/24/19 05/24/19 05/24/19 04:10 10:15 10:15 Creatine Kinase 249 H CK-MB (CK-2) 0.77 0.94 Troponin I 0.208 0.148 NT-Pro-B Natriuret Pep 05/24/19 05/24/19 16:30 16:30 Creatine Kinase 198 H CK-MB (CK-2) 1.01 Troponin I 0.101 NT-Pro-B Natriuret Pep Impressions: Head CT 05/23/19 23:26 IMPRESSION: No acute intracranial abnormality. Chest CT 05/24/19 00:00 IMPRESSION: 1. Overall, no significant change when compared to the prior study performed on 05/19/2019. 2. Bilateral pleural calcification and pleural thickening which may be due to underlying asbestos-related pleural disease. 3. Patchy bibasilar opacification likely due to scarring and/or atelectasis. No new infiltrate is identified since the prior study. 4. 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 There is also cardiomegaly with marked left atrial enlargement. 5. Partially calcified mediastinal and hilar lymph nodes. 6. Hyperinflation of the lungs. Chest X-Ray 05/26/19 06:00 IMPRESSION: Stable chest with persistent patchy interstitial and alveolar opacities, likely edema although infection is not excluded. Stable small bilateral effusions. Assessment & Plan - Diagnosis (1) Acute kidney injury Is this a current diagnosis for this admission?: Yes Plan: Improving renal indices and his edema reported resolving on current medication management. (2) Pneumonia Qualifiers: Pneumonia type: due to unspecified organism Laterality: bilateral Lung location: unspecified part of lung Qualified Code(s): J18.9 - Pneumonia, unspecified organism Is this a current diagnosis for this admission?: Yes Plan: Continue oral Levofloxacin coverage. (3) Interstitial lung disease Is this a current diagnosis for this admission?: Yes Plan: Probably related to his significant tobacco product usage. - Time Time Spent with patient: 25-34 minutes Medications reviewed and adjusted accordingly: Yes Anticipated discharge: Home with Homehealth, SNF - for short term rehabilitation. - Inpatient Certification Based on my medical assessment, after consideration of the patient's comorbidities, presenting symptoms, or acuity I expect that the services needed warrant INPATIENT care.: Yes I certify that my determination is in accordance with my understanding of Medicare's requirements for reasonable and necessary INPATIENT services [42 CFR 412.3e].: Yes Medical Necessity: Significant Comorbidiites Make Outpatient Treatment Too Risky, Need Close Monitoring Due to Risk of Patient Decompensation, Need For Continuous Telemetry Monitoring, Risk of Complication if Not Cared For in Hospital, Risk of Diagnosis Which Will Require Inpatient Eval/Care/Monitoring Post Hospital Care: 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 Request social media sr strategy manager input in disposition plan.
[2019-05-31 04:47] LABS: HEMATOCRIT 29.8 % (37.9-51.0); HEMOGLOBIN 9.7 g/dL (13.5-17.0); MEAN CORPUSCULAR HEMOGLOBIN 30.4 pg (27.0-33.4); MEAN CORPUSCULAR HGB CONC 32.6 g/dL (32.0-36.0); MEAN CORPUSCULAR VOLUME 93 fl (80-97); PLATELET COUNT 186 10^3/uL (150-450); RED BLOOD COUNT 3.19 10^6/uL (4.35-5.55); RED CELL DISTRIBUTION WIDTH 18.4 % (11.5-14.0); WHITE BLOOD COUNT 7.4 10^3/uL (4.0-10.5)
[2019-05-31 05:10] LABS: ANION GAP 6 (5-19); BLOOD UREA NITROGEN 17 mg/dL (7-20); CALCIUM 9.1 mg/dL (8.4-10.2); CARBON DIOXIDE 33 mmol/L (22-30); CHLORIDE 96 mmol/L (98-107); GLUCOSE 134 mg/dL (75-110)
[2019-05-31] MEDS: APIXABAN 5 MG TABLET PO SCH ×2 (09:26→21:57)
[2019-05-31] MEDS: MIDODRINE HCL 5 MG TABLET PO SCH ×3 (09:26→18:27)
[2019-05-31] MEDS: FUROSEMIDE INJ/PF 20 MG/2 ML SDV IV SCH (09:26)
[2019-05-31] MEDS: PANTOPRAZOLE SODIUM 40 MG TABLET.DR PO SCH (09:27)
[2019-05-31] MEDS: FLECAINIDE ACETATE 100 MG TABLET PO SCH ×2 (09:28→21:57)
[2019-05-31] MEDS: LEVOFLOXACIN 750 MG TABLET PO SCH (09:28)
--- NOTE | 2019-05-31 12:04 | PDOC PROGRESS REPORT ---
Subjective Progress Note for:: 05/31/19 Subjective:: Patient denied any chest pain or difficulty with breathing. Patient reported been on Lasix 40 mg twice daily with occasional extra dose at home. No fever or chills. No nausea, vomiting or abdominal pain. Tolerating oral feeding. Patient reported penile discomfort around his Saba catheter. Reason For Visit: SEPSIS,BILATERAL PNEUMONIA Physical Exam Vital Signs: Temp Pulse Resp BP Pulse Ox 97.9 F 93 18 107/66 100 05/31/19 11:37 05/31/19 11:37 05/31/19 11:37 05/31/19 11:37 05/31/19 11:37 Intake & Output 05/30/19 05/31/19 06/01/19 06:59 06:59 06:59 Intake Total 931 Output Total 1010 1900 Balance -79 -1900 Weight 87.5 kg 84.2 kg Physical Exam: General appearance: PRESENT: no acute distress Head exam: PRESENT: atraumatic, normocephalic Eye exam: PRESENT: conjunctiva pink. ABSENT: pallor, scleral icterus Ear exam: PRESENT: normal external ear exam Mouth exam: PRESENT: moist Respiratory exam: PRESENT: clear to auscultation joe, decreased breath sounds - at lung bases Cardiovascular exam: PRESENT: irregular rhythm, +S1, +S2 GI/Abdominal exam: PRESENT: normal bowel sounds. ABSENT: tenderness Extremities exam: PRESENT: pedal edema - bilateral pitting edema with chronic stasis skin changes Neurological exam: PRESENT: alert, awake, oriented to person, oriented to place, oriented to time, oriented to situation, CN II-XII grossly intact. ABSENT: motor sensory deficit Psychiatric exam: PRESENT: appropriate affect, normal mood. ABSENT: homicidal ideation, suicidal ideation Skin exam: PRESENT: dry, warm Gentrourinary exam: PRESENT: scrotal swelling, indwelling catheter Results Laboratory Results: 05/31/19 04:10 05/31/19 04:10 05/31/19 05/31/19 04:10 04:10 WBC 7.4 RBC 3.19 L Hgb 9.7 L Hct 29.8 L MCV 93 MCH 30.4 MCHC 32.6 RDW 18.4 H Plt Count 186 Sodium 134.5 L Potassium 5.0 Chloride 96 L Carbon Dioxide 33 H Anion Gap 6 BUN 17 Creatinine 0.64 Est GFR ( Amer) > 60 Est GFR (Non-Af Amer) > 60 Glucose 134 H Calcium 9.1 05/23/19 05/24/19 05/24/19 23:10 01:50 04:10 Creatine Kinase 278 H CK-MB (CK-2) Troponin I 0.129 0.186 NT-Pro-B Natriuret Pep 3970 H 05/24/19 05/24/19 05/24/19 04:10 10:15 10:15 Creatine Kinase 249 H CK-MB (CK-2) 0.77 0.94 Troponin I 0.208 0.148 NT-Pro-B Natriuret Pep 05/24/19 05/24/19 16:30 16:30 Creatine Kinase 198 H CK-MB (CK-2) 1.01 Troponin I 0.101 NT-Pro-B Natriuret Pep Impressions: Head CT 05/23/19 23:26 IMPRESSION: No acute intracranial abnormality. Chest CT 05/24/19 00:00 IMPRESSION: 1. Overall, no significant change when compared to the prior study performed on 05/19/2019. 2. Bilateral pleural calcification and pleural thickening which may be due to underlying asbestos-related pleural disease. 3. Patchy bibasilar opacification likely due to scarring and/or atelectasis. No new infiltrate is identified since the prior study. 4. 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 There is also cardiomegaly with marked left atrial enlargement. 5. Partially calcified mediastinal and hilar lymph nodes. 6. Hyperinflation of the lungs. Chest X-Ray 05/26/19 06:00 IMPRESSION: Stable chest with persistent patchy interstitial and alveolar opacities, likely edema although infection is not excluded. Stable small bilateral effusions. Assessment & Plan - Diagnosis (1) Acute kidney injury Is this a current diagnosis for this admission?: Yes (2) Pneumonia Qualifiers: Pneumonia type: due to unspecified organism Laterality: bilateral Lung location: unspecified part of lung Qualified Code(s): J18.9 - Pneumonia, unspecified organism Is this a current diagnosis for this admission?: Yes (3) Interstitial lung disease Is this a current diagnosis for this admission?: Yes - Time Time Spent with patient: 25-34 minutes Medications reviewed and adjusted accordingly: Yes Anticipated discharge: SNF Within: Other - Inpatient Certification Based on my medical assessment, after consideration of the patient's comorbidities, presenting symptoms, or acuity I expect that the services needed warrant INPATIENT care.: Yes I certify that my determination is in accordance with my understanding of Medicare's requirements for reasonable and necessary INPATIENT services [42 CFR 412.3e].: Yes Medical Necessity: Significant Comorbidiites Make Outpatient Treatment Too Risky, Need Close Monitoring Due to Risk of Patient Decompensation, Need For Continuous Telemetry Monitoring, Risk of Complication if Not Cared For in Hospital, Risk of Diagnosis Which Will Require Inpatient Eval/Care/Monitoring Post Hospital Care: D/C or Transfer Summary - Plan Summary Plan Summary: Increase IV Lasix to 40 mg q 12 x 3 days and thereafter adjust. Advised on salt and fluid restriction compliance. Obtain U/A with culture.
[2019-05-31 13:21] LABS: APPEARANCE,URINE SLIGHTLY-CLOUDY; BILIRUBIN,URINE NEGATIVE (NEGATIVE); COLOR,URINE YELLOW; GLUCOSE, URINE NEGATIVE (NEGATIVE); KETONES,URINE NEGATIVE (NEGATIVE); LEUKOCYTE ESTERASE,URINE TRACE (NEGATIVE); NITRITE,URINE NEGATIVE (NEGATIVE); PROTEIN,URINE 30 mg/dL (NEGATIVE); UROBILINOGEN,URINE NEGATIVE mg/dL (<2.0)
[2019-05-31] MEDS: FUROSEMIDE INJ/PF 40 MG/4 ML SDV IV SCH ×2 (15:00→21:59)
[2019-05-31] MEDS ORDERED: FUROSEMIDE INJ/PF 20 MG/2 ML SDV IV SCH (22:00)
--- NOTE | 2019-06-01 08:54 | PDOC PROGRESS REPORT ---
Subjective Progress Note for:: 06/01/19 Subjective:: Patient is currently doing same Patient is complaining of first swelling in the scrotal area Also complains of irritation on the catheter site and the pain Patient was some blood-tinged urine Patient has significant swelling in the lower extremities Patient is denied any chest pain denied any shortness of the breath Since cough is getting better Reason For Visit: SEPSIS,BILATERAL PNEUMONIA Physical Exam Vital Signs: Temp Pulse Resp BP Pulse Ox 97.6 F 102 H 24 H 113/72 100 06/01/19 08:35 06/01/19 07:35 06/01/19 07:35 06/01/19 07:35 06/01/19 07:35 Intake & Output 05/31/19 06/01/19 06/02/19 06:59 06:59 06:59 Output Total 1900 3225 Balance -1900 -3225 Weight 84.2 kg 84 kg General appearance: PRESENT: no acute distress, thin Head exam: PRESENT: atraumatic, normocephalic Eye exam: PRESENT: conjunctiva pink, EOMI, PERRLA. ABSENT: scleral icterus Ear exam: PRESENT: normal external ear exam Mouth exam: PRESENT: moist, tongue midline Neck exam: PRESENT: full ROM. ABSENT: carotid bruit, JVD, lymphadenopathy, thyromegaly Respiratory exam: PRESENT: clear to auscultation joe Cardiovascular exam: PRESENT: RRR. ABSENT: diastolic murmur, rubs, systolic murmur Vascular exam: PRESENT: normal capillary refill GI/Abdominal exam: PRESENT: normal bowel sounds, soft. ABSENT: distended, guarding, mass, organolmegaly, rebound, tenderness Rectal exam: PRESENT: deferred Extremities exam: PRESENT: pedal edema Additional comments: Swelling in the scrotal area Neurological exam: PRESENT: alert, awake, oriented to person, oriented to place, oriented to time, oriented to situation, CN II-XII grossly intact. ABSENT: motor sensory deficit Psychiatric exam: PRESENT: appropriate affect, normal mood. ABSENT: homicidal ideation, suicidal ideation Skin exam: PRESENT: dry, intact, warm. ABSENT: cyanosis, rash Results Laboratory Results: 05/31/19 04:10 05/31/19 04:10 05/31/19 12:27 Urine Color YELLOW Urine Appearance SLIGHTLY-CLOUDY Urine pH 5.0 Ur Specific [place] 1.010 Urine Protein 30 H Urine Glucose (UA) NEGATIVE Urine Ketones NEGATIVE Urine Blood LARGE H Urine Nitrite NEGATIVE Ur Leukocyte Esterase TRACE H Urine WBC (Auto) 0 Urine RBC (Auto) >182 05/23/19 05/24/19 05/24/19 23:10 01:50 04:10 Creatine Kinase 278 H CK-MB (CK-2) Troponin I 0.129 0.186 NT-Pro-B Natriuret Pep 3970 H 05/24/19 05/24/19 05/24/19 04:10 10:15 10:15 Creatine Kinase 249 H CK-MB (CK-2) 0.77 0.94 Troponin I 0.208 0.148 NT-Pro-B Natriuret Pep 05/24/19 05/24/19 16:30 16:30 Creatine Kinase 198 H CK-MB (CK-2) 1.01 Troponin I 0.101 NT-Pro-B Natriuret Pep Impressions: Head CT 05/23/19 23:26 IMPRESSION: No acute intracranial abnormality. Chest CT 05/24/19 00:00 IMPRESSION: 1. Overall, no significant change when compared to the prior study performed on 05/19/2019. 2. Bilateral pleural calcification and pleural thickening which may be due to underlying asbestos-related pleural disease. 3. Patchy bibasilar opacification likely due to scarring and/or atelectasis. No new infiltrate is identified since the prior study. 4. 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 There is also cardiomegaly with marked left atrial enlargement. 5. Partially calcified mediastinal and hilar lymph nodes. 6. Hyperinflation of the lungs. Chest X-Ray 05/26/19 06:00 IMPRESSION: Stable chest with persistent patchy interstitial and alveolar opaci ties, likely edema although infection is not excluded. Stable small bilateral effusions. Assessment & Plan - Diagnosis (1) Sepsis Qualifiers: Sepsis type: sepsis due to unspecified organism Qualified Code(s): A41.9 - Sepsis, unspecified organism Is this a current diagnosis for this admission?: Yes Plan: Currently all resolving continues to p.o. Levaquin (2) Acute kidney injury Is this a current diagnosis for this admission?: Yes Plan: Currently all resolved (3) Altered mental status Qualifiers: Altered mental status type: unspecified Qualified Code(s): R41.82 - Altered mental status, unspecified Is this a current diagnosis for this admission?: Yes Plan: Due to the sepsis and the multiple other etiology currently getting better (4) Elevated troponin Is this a current diagnosis for this admission?: Yes Plan: Due to the most likely hypotension and the sepsis but with the significant underlying coronary disease and heart failure we will consult the cardiology (5) Hypotension Qualifiers: Hypotension type: unspecified hypotension type Qualified Code(s): I95.9 - Hypotension, unspecified Is this a current diagnosis for this admission?: Yes Plan: Currently all resolved (6) Interstitial lung disease Is this a current diagnosis for this admission?: Yes Plan: Follow with the pulmonary (7) Pneumonia Qualifiers: Pneumonia type: due to unspecified organism Laterality: bilateral Lung location: unspecified part of lung Qualified Code(s): J18.9 - Pneumonia, unspecified organism Is this a current diagnosis for this admission?: Yes Plan: Continues to IV antibiotic (8) Unintentional weight loss Is this a current diagnosis for this admission?: Yes (9) Hemoptysis Is this a current diagnosis for this admission?: Yes (10) Leg edema Is this a current diagnosis for this admission?: Yes Plan: We will repeat the venous Doppler most likely patient has ongoing chronic lymphedema elevate the legs continues to Lasix IV twice a day - Time Time Spent with patient: 25-34 minutes Medications reviewed and adjusted accordingly: Yes Anticipated discharge: SNF Within: Other - Plan Summary Plan Summary: Will remove the catheter and change it patients probably need some irrigations palpation on anticoagulations We have no urology service available Plastic surgery if he needed to put the coud catheter Discussed with the
[2019-06-01] MEDS: FUROSEMIDE INJ/PF 40 MG/4 ML SDV IV SCH ×2 (10:54→21:59)
[2019-06-01] MEDS: LEVOFLOXACIN 750 MG TABLET PO SCH (10:54)
[2019-06-01] MEDS: APIXABAN 5 MG TABLET PO SCH ×2 (10:54→21:59)
[2019-06-01] MEDS: MIDODRINE HCL 5 MG TABLET PO SCH ×3 (10:54→17:18)
[2019-06-01] MEDS: ACETAMINOPHEN 325 MG TABLET PO PRN (10:54)
[2019-06-01] MEDS: FLECAINIDE ACETATE 100 MG TABLET PO SCH ×2 (10:54→22:00)
[2019-06-01] MEDS: PANTOPRAZOLE SODIUM 40 MG TABLET.DR PO SCH (10:54)
--- NOTE | 2019-06-01 16:16 | RADIOLOGY REPORT (SQ) ---
EXAM DESCRIPTION: VENOUS BILATERAL LOWER COMPLETED DATE/TIME: 06/01/2019 4:04 pm REASON FOR STUDY: edema COMPARISON: None. TECHNIQUE: Dynamic and static cutler scale and color images acquired of both lower extremity venous sy stems. Selected spectral images acquired with additional compression and augmentation maneuvers. Imag es stored on PACS. LIMITATIONS: None. FINDINGS: RIGHT LEG COMMON FEMORAL AND FEMORAL: Normal phasicity, compression and augmentation. No visualized echogenic m aterial on cutler scale. No defects on color images. POPLITEAL: Normal compression and augmentation. No visualized echogenic material on cutler scale. No de fects on color images. CALF VESSELS: Normal compression and augmentation. No visualized echogenic material on cutler scale. No defects on color image. GSV AND SSV: Normal compression. No visualized echogenic material on cutler scale. No defects on color images. ANY DEEP VENOUS INSUFFICIENCY: Not evaluated. ANY EVIDENCE OF POPLITEAL CYST: No. OTHER: No other significant finding. LEFT LEG COMMON FEMORAL AND FEMORAL: Normal phasicity, compression and augmentation. No visualized echogenic m aterial on cutler scale. No defects on color images. POPLITEAL: Normal compression and augmentation. No visualized echogenic material on cutler scale. No de fects on color images. CALF VESSELS: Normal compression and augmentation. No visualized echogenic material on cutler scale. No defects on color images. GSV AND SSV: Normal compression. No visualized echogenic material on cutler scale. No defects on color images. ANY DEEP VENOUS INSUFFICIENCY: Not evaluated. ANY EVIDENCE POPLITEAL CYST: No. OTHER: No other significant finding. IMPRESSION: NO EVIDENCE DVT OR SVT IN EITHER LEG. TECHNICAL DOCUMENTATION: JOB ID: [id number] [employer]- All Rights Reserved Reading location - IP/workstation name: [email or web address]
[2019-06-01] MEDS: TAMSULOSIN HCL 0.4 MG CAP.SR.24H PO SCH (17:18)
[2019-06-02 05:12] LABS: ABSOLUTE EOSINOPHILS # (AUTO) 0.2 10^3/uL (0.0-0.6); ABSOLUTE LYMPHOCYTES (AUTO) 0.5 10^3/uL (0.5-4.7); ABSOLUTE MONOCYTES (AUTO) 0.5 10^3/uL (0.1-1.4); ABSOLUTE NEUT (AUTO) 5.6 10^3/uL (1.7-8.2); BASOPHILS % (AUTO) 0.6 % (0-2); EOSINOPHILS % (AUTO) 2.2 % (0-6); HEMATOCRIT 28.2 % (37.9-51.0); HEMOGLOBIN 9.3 g/dL (13.5-17.0); LYMPHOCYTES % (AUTO) 7.4 % (13-45); MEAN CORPUSCULAR HEMOGLOBIN 30.1 pg (27.0-33.4); MEAN CORPUSCULAR HGB CONC 32.8 g/dL (32.0-36.0); MEAN CORPUSCULAR VOLUME 92 fl (80-97); MONOCYTES % (AUTO) 7.6 % (3-13); PLATELET COUNT 183 10^3/uL (150-450); RED BLOOD COUNT 3.07 10^6/uL (4.35-5.55); RED CELL DISTRIBUTION WIDTH 18.5 % (11.5-14.0); SEGMENTED NEUTROPHILS % (AUTO) 82.2 % (42-78); TOTAL CELLS COUNTED % (AUTO) 100 %; WHITE BLOOD COUNT 6.8 10^3/uL (4.0-10.5)
[2019-06-02] MEDS: ALBUMIN HUMAN 12.5 GM/50 ML RTUINJ IV SCH ×2 (08:49→09:35)
[2019-06-02 09:31] LABS: ANION GAP 5 (5-19); BLOOD UREA NITROGEN 25 mg/dL (7-20); CALCIUM 9.1 mg/dL (8.4-10.2); CARBON DIOXIDE 36 mmol/L (22-30); CHLORIDE 91 mmol/L (98-107); GLUCOSE 142 mg/dL (75-110); POTASSIUM 4.9 mmol/L (3.6-5.0)
[2019-06-02 09:33] LABS: PROTHROMBIN TIME 20.2 SEC (11.4-15.4)
[2019-06-02 09:35] LABS: PARTIAL THROMBOPLASTIN TIME 44.2 SEC (23.5-35.8)
[2019-06-02] MEDS: APIXABAN 5 MG TABLET PO SCH ×2 (09:35→22:08)
[2019-06-02] MEDS: FUROSEMIDE INJ/PF 40 MG/4 ML SDV IV SCH ×2 (09:35→22:10)
[2019-06-02] MEDS: PANTOPRAZOLE SODIUM 40 MG TABLET.DR PO SCH (09:35)
[2019-06-02] MEDS: MIDODRINE HCL 5 MG TABLET PO SCH ×3 (09:35→17:49)
[2019-06-02] MEDS: FLECAINIDE ACETATE 100 MG TABLET PO SCH ×2 (09:35→22:08)
[2019-06-02] MEDS: LEVOFLOXACIN 750 MG TABLET PO SCH (09:35)
--- NOTE | 2019-06-02 09:35 | PDOC PROGRESS REPORT ---
Subjective Progress Note for:: 06/02/19 Subjective:: Patient is to have a 2 Saba catheter placed yesterday come out Patient still have a scrotal swelling and a discomfort on the scrotal area She is currently on IV Lasix Blood-tinged urine Denied any chest pain to than any shortness of the breath Reason For Visit: SEPSIS,BILATERAL PNEUMONIA Physical Exam Vital Signs: Temp Pulse Resp BP Pulse Ox 97.4 F 102 H 20 115/69 100 06/02/19 07:55 06/02/19 07:55 06/02/19 07:55 06/02/19 07:55 06/02/19 07:55 Intake & Output 06/01/19 06/02/19 06/03/19 06:59 06:59 06:59 Intake Total 1005 Output Total 3225 700 Balance -3225 305 Weight 84 kg General appearance: PRESENT: no acute distress, thin Head exam: PRESENT: atraumatic, normocephalic Eye exam: PRESENT: conjunctiva pink, EOMI, PERRLA. ABSENT: scleral icterus Ear exam: PRESENT: normal external ear exam Mouth exam: PRESENT: moist, tongue midline Neck exam: PRESENT: full ROM. ABSENT: carotid bruit, JVD, lymphadenopathy, thyromegaly Respiratory exam: PRESENT: decreased breath sounds Cardiovascular exam: PRESENT: RRR. ABSENT: diastolic murmur, rubs, systolic murmur Pulses: PRESENT: normal dorsalis pedis pul, +2 pedal pulses bilateral Vascular exam: PRESENT: normal capillary refill GI/Abdominal exam: PRESENT: normal bowel sounds, soft. ABSENT: distended, guarding, mass, organolmegaly, rebound, tenderness Rectal exam: PRESENT: deferred Extremities exam: PRESENT: pedal edema Additional comments: Scrotal swelling is present Neurological exam: PRESENT: alert, awake, oriented to person, oriented to place, oriented to time, oriented to situation, CN II-XII grossly intact. ABSENT: motor sensory deficit Psychiatric exam: PRESENT: appropriate affect, normal mood. ABSENT: homicidal ideation, suicidal ideation Skin exam: PRESENT: dry, intact, warm. ABSENT: cyanosis, rash Results Laboratory Results: 06/02/19 04:25 06/02/19 04:25 WBC 6.8 RBC 3.07 L Hgb 9.3 L Hct 28.2 L MCV 92 MCH 30.1 MCHC 32.8 RDW 18.5 H Plt Count 183 Seg Neutrophils % 82.2 H Lymphocytes % 7.4 L Monocytes % 7.6 Eosinophils % 2.2 Basophils % 0.6 Absolute Neutrophils 5.6 Absolute Lymphocytes 0.5 Absolute Monocytes 0.5 Absolute Eosinophils 0.2 Absolute Basophils 0.0 05/31/19 12:27 Catheterized Urine Urine Culture - Final NO GROWTH 2 DAYS 05/23/19 05/24/19 05/24/19 23:10 01:50 04:10 Creatine Kinase 278 H CK-MB (CK-2) Troponin I 0.129 0.186 NT-Pro-B Natriuret Pep 3970 H 05/24/19 05/24/19 05/24/19 04:10 10:15 10:15 Creatine Kinase 249 H CK-MB (CK-2) 0.77 0.94 Troponin I 0.208 0.148 NT-Pro-B Natriuret Pep 05/24/19 05/24/19 16:30 16:30 Creatine Kinase 198 H CK-MB (CK-2) 1.01 Troponin I 0.101 NT-Pro-B Natriuret Pep Impressions: Head CT 05/23/19 23:26 IMPRESSION: No acute intracranial abnormality. Chest CT 05/24/19 00:00 IMPRESSION: 1. Overall, no significant change when compared to the prior study performed on 05/19/2019. 2. Bilateral pleural calcification and pleural thickening which may be due to underlying asbestos-related pleural disease. 3. Patchy bibasilar opacification likely due to scarring and/or atelectasis. No new infiltrate is identified since the prior study. 4. 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 There is also cardiomegaly with marked left atrial enlargement. 5. Partially calcified mediastinal and hilar lymph nodes. 6. Hyperinflation of the lungs. Chest X-Ray 05/26/19 06:00 IMPRESSION: Stable chest with persistent patchy interstitial and alveolar opacities, likely edema although infection is not excluded. Stable small bilateral effusions. Venous Doppler Study 06/01/19 08:13 IMPRESSION: NO EVIDENCE DVT OR SVT IN EITHER LEG. Assessment & Plan - Diagnosis (1) Sepsis Qualifiers: Sepsis type: sepsis due to unspecified organism Qualified Code(s): A41.9 - Sepsis, unspecified organism Is this a current diagnosis for this admission?: Yes Plan: Currently all resolving continues to p.o. Levaquin (2) Acute kidney injury Is this a current diagnosis for this admission?: Yes Plan: Currently all resolved (3) Altered mental status Qualifiers: Altered mental status type: unspecified Qualified Code(s): R41.82 - Altered mental status, unspecified Is this a current diagnosis for this admission?: Yes Plan: Due to the sepsis and the multiple other etiology currently getting better (4) Elevated troponin Is this a current diagnosis for this admission?: Yes (5) Hypotension Qualifiers: Hypotension type: unspecified hypotension type Qualified Code(s): I95.9 - Hypotension, unspecified Is this a current diagnosis for this admission?: Yes Plan: Currently all resolved (6) Interstitial lung disease Is this a current diagnosis for this admission?: Yes Plan: Follow with the pulmonary (7) Pneumonia Qualifiers: Pneumonia type: due to unspecified organism Laterality: bilateral Lung location: unspecified part of lung Qualified Code(s): J18.9 - Pneumonia, unspecified organism Is this a current diagnosis for this admission?: Yes Plan: Continues to IV antibiotic (8) Unintentional weight loss Is this a current diagnosis for this admission?: Yes (9) Hemoptysis Is this a current diagnosis for this admission?: Yes (10) Leg edema Is this a current diagnosis for this admission?: Yes Plan: Patient's venous Doppler is negative Continues to elevate the legs Schedule the echocardiogram today (11) Hematuria Qualifiers: Hematuria type: unspecified type Qualified Code(s): R31.9 - Hematuria, unspecified Is this a current diagnosis for this admission?: Yes Plan: We will try to put the catheter again we do not have a new urologist service will ask the surgery to help and a he said he will try but not sure if is unable to get the catheter we have to transfer the patient's - Time Time Spent with patient: 25-34 minutes Medications reviewed and adjusted accordingly: Yes Anticipated discharge: Other Within: Other - Plan Summary Plan Summary: Continues to current medications With the nursing staff Discussed with the
[2019-06-02] MEDS: OXYCODONE HCL IR 5 MG TABLET PO PRN ×2 (12:31→19:02)
[2019-06-02] MEDS: ACETAMINOPHEN 325 MG TABLET PO PRN (16:12)
[2019-06-02] MEDS: TAMSULOSIN HCL 0.4 MG CAP.SR.24H PO SCH (16:12)
--- NOTE | 2019-06-02 21:57 | XCELERA REPORT ---
[address] [address] Transthoracic Echocardiogram Report Name: RUBEN ZACH GARZON Age: 64 yrs Gender: Male : 1955 Patient Status: Inpatient Patient Location: [facility] ([place]A Study Date: 06/02/2019 10:03 AM Height: 70 in Weight: 185 lb BSA: 2.0 m2 Procedure: A two-dimensional transthoracic echocardiogram with color flow and Doppler was performed. The study was technically limited with all images being suboptimal in quality. Reason For Study: chf History: CHF. Ordering Physician: PEÑA OLIVER Performed By: Trina Arreaga Interpretation Summary A two-dimensional transthoracic echocardiogram with color flow and Doppler was performed. The left ventricle is normal in size. There is normal left ventricular wall thickness. The left ventricular ejection fraction is within normal limits. LV EF is 65% The left ventricular wall motion is normal. There is no thrombus. Cannot assess for ASD,VSD,or PFO. The right ventricle is mildly dilated. The right ventricle is not well visualized secondary to technical limitations The right atrium is moderately dilated. LA dilated moderately to severely. There is no evidence of mitral valve prolapse. There is no vegetation seen on the mitral valve. There is no mitral valve stenosis. There is a moderate amount of mitral regurgitation There is no aortic valvular vegetation. There is aortic sclerosis without aortic stenosis. There is no aortic valve stenosis There is no LVOT obstruction. No aortic regurgitation is present. There is no tricuspid stenosis. There is a mild to moderate amount of tricuspid regurgitation RVSP is at least 60 mm of Hg , with a minimum RA mean of 20. There is servere pulmonary hypertension by echo There is no pulmonic valvular stenosis. The aortic root is normal size. The inferior vena cava appeared dilated and did not change with respiration (RAP > 20 mmHg) MMode/2D Measurements & Calculations RVDd: 3.3 cm LVIDd: 3.6 cm FS: 35.1 % Ao root diam: 3.2 cm IVSd: 0.87 cm LVIDs: 2.4 cm EDV(Teich): 56.1 ml Ao root area: 8.1 cm2 LVPWd: 0.90 cm ESV(Teich): 19.5 ml LA dimension: 5.5 cm EF(Teich): 65.3 % Doppler Measurements & Calculations MV E max ariana: MV P1/2t max ariana: Ao V2 max: LV V1 max P.4 cm/sec 86.4 cm/sec 69.5 cm/sec 1.2 mmHg MV A max ariana: MV P1/2t: 35.1 msec Ao max P.9 mmHg LV V1 max: 54.8 cm/sec MVA(P1/2t): 6.3 cm2 54.8 cm/sec MV E/A: 1.6 MV dec slope: 721.5 cm/sec2 MV dec time: 0.12 sec PA V2 max: TR max ariana: MV P1/2t-pr_phl: 49.4 cm/sec 314.9 cm/sec 35.1 msec PA max PG: TR max P.7 mmHg 0.97 mmHg Left Ventricle The left ventricle is normal in size. There is normal left ventricular wall thickness. The left ventricular ejection fraction is within normal limits. LV EF is 65%. LV diastolic function could not be adequately assessed due to atrial fibrilation. The left ventricular wall motion is normal. Flattened septum is consistent with RV pressure/volume overload. There is no thrombus. Cannot assess for ASD,VSD,or PFO. Right Ventricle The right ventricle is mildly dilated. The right ventricle is not well visualized secondary to technical limitations. Atria The right atrium is moderately dilated. LA dilated moderately to severely. Mitral Valve There is mild mitral annular calcification. There is mild mitral leaflet calcification. There is no evidence of mitral valve prolapse. There is no vegetation seen on the mitral valve. There is no mitral valve stenosis. There is a moderate amount of mitral regurgitation. Aortic Valve There is no aortic valvular vegetation. There is aortic sclerosis without aortic stenosis. There is no aortic valve stenosis. There is no LVOT obstruction. No aortic regurgitation is present. Tricuspid Valve There is no tricuspid stenosis. There is a mild to moderate amount of tricuspid regurgitation. RVSP is at least 60 mm of Hg , with a minimum RA mean of 20. There is servere pulmonary hypertension by echo. Pulmonic Valve There is no pulmonic valvular stenosis. There is a trace amount of pulmonic regurgitation. Great Vessels The aortic root is normal size. The inferior vena cava appeared dilated and did not change with respiration (RAP > 20 mmHg). Effusions There is no pericardial effusion. : PEÑA OLIVER > Starla Mcadams
[2019-06-03] MEDS: OXYCODONE HCL IR 5 MG TABLET PO PRN ×4 (01:19→19:57)
[2019-06-03 05:50] LABS: ABSOLUTE BASOPHILS # (AUTO) 0.1 10^3/uL (0.0-0.2); ABSOLUTE EOSINOPHILS # (AUTO) 0.1 10^3/uL (0.0-0.6); ABSOLUTE LYMPHOCYTES (AUTO) 0.5 10^3/uL (0.5-4.7); ABSOLUTE MONOCYTES (AUTO) 0.5 10^3/uL (0.1-1.4); ABSOLUTE NEUT (AUTO) 5.9 10^3/uL (1.7-8.2); BASOPHILS % (AUTO) 0.8 % (0-2); EOSINOPHILS % (AUTO) 1.8 % (0-6); HEMOGLOBIN 9.2 g/dL (13.5-17.0); LYMPHOCYTES % (AUTO) 7.3 % (13-45); MEAN CORPUSCULAR HEMOGLOBIN 30.3 pg (27.0-33.4); MEAN CORPUSCULAR VOLUME 92 fl (80-97); MONOCYTES % (AUTO) 7.3 % (3-13); PLATELET COUNT 180 10^3/uL (150-450); RED BLOOD COUNT 3.05 10^6/uL (4.35-5.55); RED CELL DISTRIBUTION WIDTH 18.2 % (11.5-14.0); SEGMENTED NEUTROPHILS % (AUTO) 82.8 % (42-78); TOTAL CELLS COUNTED % (AUTO) 100 %; WHITE BLOOD COUNT 7.1 10^3/uL (4.0-10.5)
[2019-06-03] MEDS: APIXABAN 5 MG TABLET PO SCH ×2 (09:47→21:12)
[2019-06-03] MEDS: FLECAINIDE ACETATE 100 MG TABLET PO SCH ×2 (09:47→21:12)
[2019-06-03] MEDS: MIDODRINE HCL 5 MG TABLET PO SCH ×3 (09:47→17:37)
[2019-06-03] MEDS: PANTOPRAZOLE SODIUM 40 MG TABLET.DR PO SCH (09:47)
[2019-06-03] MEDS: LEVOFLOXACIN 750 MG TABLET PO SCH (09:47)
[2019-06-03] MEDS: METOLAZONE 2.5 MG TABLET PO SCH ×2 (09:48→17:38)
--- NOTE | 2019-06-03 10:12 | PDOC PROGRESS REPORT ---
Subjective Progress Note for:: 06/03/19 Subjective:: Patient is currently doing same As per discussed with the cardiology with echo reports patient have a significant pulmonary hypertension's Still have a swelling in the lower extremities and a scrotal area Patient urine is clear Patient is denied any chest pain to than any shortness of the breath Reason For Visit: SEPSIS,BILATERAL PNEUMONIA Physical Exam Vital Signs: Temp Pulse Resp BP Pulse Ox 97.6 F 101 H 22 H 98/62 L 96 06/03/19 08:03 06/03/19 08:03 06/03/19 08:03 06/03/19 08:03 06/03/19 08:03 Intake & Output 06/02/19 06/03/19 06/04/19 06:59 06:59 06:59 Intake Total 1005 1542 Output Total 700 1525 Balance 305 17 Weight 84 kg General appearance: PRESENT: no acute distress, well-developed, well-nourished Head exam: PRESENT: atraumatic, normocephalic Eye exam: PRESENT: conjunctiva pink, EOMI, PERRLA. ABSENT: scleral icterus Ear exam: PRESENT: normal external ear exam Mouth exam: PRESENT: moist, tongue midline Neck exam: PRESENT: full ROM. ABSENT: carotid bruit, JVD, lymphadenopathy, thyromegaly Respiratory exam: PRESENT: clear to auscultation joe Cardiovascular exam: PRESENT: RRR. ABSENT: diastolic murmur, rubs, systolic murmur Vascular exam: PRESENT: normal capillary refill GI/Abdominal exam: PRESENT: normal bowel sounds, soft. ABSENT: distended, guarding, mass, organolmegaly, rebound, tenderness Rectal exam: PRESENT: deferred Extremities exam: PRESENT: pedal edema Neurological exam: PRESENT: alert, awake, oriented to person, oriented to place, oriented to time, oriented to situation. ABSENT: motor sensory deficit Psychiatric exam: PRESENT: appropriate affect, normal mood. ABSENT: homicidal ideation, suicidal ideation Skin exam: PRESENT: dry, intact, warm. ABSENT: cyanosis, rash Results Laboratory Results: 06/03/19 05:35 06/03/19 05:35 WBC 7.1 RBC 3.05 L Hgb 9.2 L Hct 28.0 L MCV 92 MCH 30.3 MCHC 33.0 RDW 18.2 H Plt Count 180 Seg Neutrophils % 82.8 H Lymphocytes % 7.3 L Monocytes % 7.3 Eosinophils % 1.8 Basophils % 0.8 Absolute Neutrophils 5.9 Absolute Lymphocytes 0.5 Absolute Monocytes 0.5 Absolute Eosinophils 0.1 Absolute Basophils 0.1 05/31/19 12:27 Catheterized Urine Urine Culture - Final NO GROWTH 2 DAYS 05/23/19 05/24/19 05/24/19 23:10 01:50 04:10 Creatine Kinase 278 H CK-MB (CK-2) Troponin I 0.129 0.186 NT-Pro-B Natriuret Pep 3970 H 05/24/19 05/24/19 05/24/19 04:10 10:15 10:15 Creatine Kinase 249 H CK-MB (CK-2) 0.77 0.94 Troponin I 0.208 0.148 NT-Pro-B Natriuret Pep 05/24/19 05/24/19 16:30 16:30 Creatine Kinase 198 H CK-MB (CK-2) 1.01 Troponin I 0.101 NT-Pro-B Natriuret Pep Impressions: Head CT 05/23/19 23:26 IMPRESSION: No acute intracranial abnormality. Chest CT 05/24/19 00:00 IMPRESSION: 1. Overall, no significant change when compared to the prior study performed on 05/19/2019. 2. Bilateral pleural calcification and pleural thickening which may be due to underlying asbestos-related pleural disease. 3. Patchy bibasilar opacification likely due to scarring and/or atelectasis. No new infiltrate is identified since the prior study. 4. 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 There is also cardiomegaly with marked left atrial enlargement. 5. Partially calcified mediastinal and hilar lymph nodes. 6. Hyperinflation of the lungs. Chest X-Ray 05/26/19 06:00 IMPRESSION: Stable chest with persistent patchy interstitial and alveolar opaci ties, likely edema although infection is not excluded. Stable small bilateral effusions. Venous Doppler Study 06/01/19 08:13 IMPRESSION: NO EVIDENCE DVT OR SVT IN EITHER LEG. Assessment & Plan - Diagnosis (1) Sepsis Qualifiers: Sepsis type: sepsis due to unspecified organism Qualified Code(s): A41.9 - Sepsis, unspecified organism Is this a current diagnosis for this admission?: Yes Plan: Currently all resolving continues to p.o. Levaquin (2) Acute kidney injury Is this a current diagnosis for this admission?: Yes Plan: Currently all resolved (3) Altered mental status Qualifiers: Altered mental status type: unspecified Qualified Code(s): R41.82 - Altered mental status, unspecified Is this a current diagnosis for this admission?: Yes Plan: Due to the sepsis and the multiple other etiology currently getting better (4) Elevated troponin Is this a current diagnosis for this admission?: Yes (5) Hypotension Qualifiers: Hypotension type: unspecified hypotension type Qualified Code(s): I95.9 - Hypotension, unspecified Is this a current diagnosis for this admission?: Yes Plan: Currently all resolved (6) Interstitial lung disease Is this a current diagnosis for this admission?: Yes Plan: Follow with the pulmonary (7) Pneumonia Qualifiers: Pneumonia type: due to unspecified organism Laterality: bilateral Lung location: unspecified part of lung Qualified Code(s): J18.9 - Pneumonia, unspecified organism Is this a current diagnosis for this admission?: Yes Plan: Continues to IV antibiotic (8) Unintentional weight loss Is this a current diagnosis for this admission?: Yes (9) Hemoptysis Is this a current diagnosis for this admission?: Yes (10) Leg edema Is this a current diagnosis for this admission?: Yes Plan: We will add the Zaroxolyn as per discussed with the cardiology continues to Lasix patient's to Zaroxolyn in the past and according to the patient was worked better We will get the VQ scan to rule out any chronic PE patient is already on Eliquis with the setting of the pulmonary hypertension's (11) Hematuria Qualifiers: Hematuria type: unspecified type Qualified Code(s): R31.9 - Hematuria, unspecified Is this a current diagnosis for this admission?: Yes Plan: Currently all resolved - Time Time Spent with patient: 15-24 minutes Medications reviewed and adjusted accordingly: Yes Anticipated discharge: Other Within: Other - Plan Summary Plan Summary: Overall patient's condition is not that great with the multiple comorbidity several discussions with the family in the past Try to contact the again Cussed with the cardiology and pulmonary
[2019-06-03 10:28] LABS: ANION GAP 7 (5-19); BLOOD UREA NITROGEN 26 mg/dL (7-20); CALCIUM 9.3 mg/dL (8.4-10.2); CARBON DIOXIDE 34 mmol/L (22-30); CHLORIDE 91 mmol/L (98-107); GLUCOSE 103 mg/dL (75-110); POTASSIUM 4.8 mmol/L (3.6-5.0)
[2019-06-03] MEDS: FUROSEMIDE INJ/PF 40 MG/4 ML SDV IV SCH (10:42)
--- NOTE | 2019-06-03 11:12 | RADIOLOGY REPORT (SQ) ---
EXAM DESCRIPTION: CHEST SINGLE VIEW COMPLETED DATE/TIME: 06/03/2019 11:03 am REASON FOR STUDY: copd COMPARISON: 05/26/2019 EXAM PARAMETERS: NUMBER OF VIEWS: One view. TECHNIQUE: Single frontal radiographic view of the chest acquired. RADIATION DOSE: NA LIMITATIONS: None. FINDINGS: LUNGS AND PLEURA: There is mild residual pulmonary edema. There is improvement since the earlier study. Cannot exclude small pleural effusions. MEDIASTINUM AND HILAR STRUCTURES: No masses. Contour normal. HEART AND VASCULAR STRUCTURES: Cardiomegaly. BONES: No acute findings. HARDWARE: Injection port on the right. OTHER: No other significant finding. IMPRESSION: Mild residual pulmonary edema with improvement. Cardiomegaly. Small pleural effusions. TECHNICAL DOCUMENTATION: JOB ID: [id number] [email or web address] All Rights Reserved Reading location - IP/workstation name: [email or web address]
[2019-06-03] MEDS: ACETAMINOPHEN 325 MG TABLET PO PRN (13:40)
[2019-06-03] MEDS ORDERED: FUROSEMIDE INJ/PF 20 MG/2 ML SDV IV ONE (17:15)
[2019-06-03] MEDS: MILRINONE LACTATE/D5W 20 MG/100 ML RTUINJ IV PRN ×2 (17:32→23:48)
[2019-06-03] MEDS: TAMSULOSIN HCL 0.4 MG CAP.SR.24H PO SCH (17:37)
[2019-06-03] MEDS: NORMAL SALINE 250 ML with FUROSEMIDE 250 MG IV PRN ×2 (17:38)
[2019-06-04] MEDS: OXYCODONE HCL IR 5 MG TABLET PO PRN ×3 (02:57→17:49)
[2019-06-04 03:11] LABS: ABSOLUTE EOSINOPHILS # (AUTO) 0.1 10^3/uL (0.0-0.6); ABSOLUTE LYMPHOCYTES (AUTO) 0.5 10^3/uL (0.5-4.7); ABSOLUTE MONOCYTES (AUTO) 0.6 10^3/uL (0.1-1.4); ABSOLUTE NEUT (AUTO) 6.4 10^3/uL (1.7-8.2); BASOPHILS % (AUTO) 0.6 % (0-2); EOSINOPHILS % (AUTO) 1.7 % (0-6); HEMATOCRIT 25.1 % (37.9-51.0); HEMOGLOBIN 8.4 g/dL (13.5-17.0); LYMPHOCYTES % (AUTO) 6.9 % (13-45); MEAN CORPUSCULAR HEMOGLOBIN 30.5 pg (27.0-33.4); MEAN CORPUSCULAR HGB CONC 33.4 g/dL (32.0-36.0); MEAN CORPUSCULAR VOLUME 91 fl (80-97); MONOCYTES % (AUTO) 8.4 % (3-13); PLATELET COUNT 172 10^3/uL (150-450); RED BLOOD COUNT 2.75 10^6/uL (4.35-5.55); RED CELL DISTRIBUTION WIDTH 17.9 % (11.5-14.0); SEGMENTED NEUTROPHILS % (AUTO) 82.4 % (42-78); TOTAL CELLS COUNTED % (AUTO) 100 %; WHITE BLOOD COUNT 7.7 10^3/uL (4.0-10.5)
[2019-06-04 03:24] LABS: ANION GAP 5 (5-19); BLOOD UREA NITROGEN 29 mg/dL (7-20); CALCIUM 9.2 mg/dL (8.4-10.2); CARBON DIOXIDE 37 mmol/L (22-30); CHLORIDE 90 mmol/L (98-107); GLUCOSE 120 mg/dL (75-110); POTASSIUM 4.4 mmol/L (3.6-5.0)
[2019-06-04] MEDS: APIXABAN 5 MG TABLET PO SCH ×2 (09:30→21:17)
[2019-06-04] MEDS: MIDODRINE HCL 5 MG TABLET PO SCH ×3 (09:30→17:49)
[2019-06-04] MEDS: PANTOPRAZOLE SODIUM 40 MG TABLET.DR PO SCH (09:30)
[2019-06-04] MEDS: METOLAZONE 2.5 MG TABLET PO SCH ×2 (09:31→21:16)
[2019-06-04] MEDS: FLECAINIDE ACETATE 100 MG TABLET PO SCH ×2 (09:31→22:24)
[2019-06-04] MEDS: MILRINONE LACTATE/D5W 20 MG/100 ML RTUINJ IV PRN ×2 (09:41→21:11)
[2019-06-04] MEDS ORDERED: NOREPINEPHRINE BITARTRATE INJ/PF 4 MG/4 ML SDV IV ONE (10:24)
[2019-06-04] MEDS: DEXTROSE 5%-WATER 250 ML with NOREPINEPHRINE BITARTRATE 4 MG IV PRN ×2 (10:30)
--- NOTE | 2019-06-04 12:32 | PDOC PROGRESS REPORT ---
Subjective Progress Note for:: 06/04/19 Subjective:: Patient still have a significant swelling in the scrotum and the down the leg area patient seen by the highway administrative engineer yesterday again start the patient on the Lasix drips and patient was sent to the ICU for reduce the pulmonary hypertension's Patient still this morning pretty much the same denied any chest pain to than any shortness of the breath Patient does have ongoing chronic leg swelling and a chronic most likely lymphedema with this pulmonary hypertension was admitted in the [facility] and the patient have a vascular work-up done by the [facility] and suggest just the physical therapy Very extensive discussions with the patient's and the son on the bedside regarding the patient's ongoing current conditions with the multiple comorbi dityBut not very good prognosis Reason For Visit: SEPSIS,BILATERAL PNEUMONIA Physical Exam Vital Signs: Temp Pulse Resp BP Pulse Ox 98.1 F 109 H 16 107/67 97 06/04/19 08:00 06/04/19 10:00 06/04/19 10:00 06/04/19 10:00 06/04/19 10:00 Intake & Output 06/03/19 06/04/19 06/05/19 06:59 06:59 06:59 Intake Total 1542 761 95 Output Total 1525 1550 455 Balance 47 -051 -933 Weight 84 kg 86.6 kg General appearance: PRESENT: no acute distress, thin Respiratory exam: PRESENT: clear to auscultation joe Cardiovascular exam: PRESENT: +S1, +S2 Extremities exam: PRESENT: pedal edema Additional comments: Scrotal edema is also present Neurological exam: PRESENT: alert, awake, oriented to person, oriented to place, oriented to time, oriented to situation Psychiatric exam: PRESENT: depressed Results Laboratory Results: 06/04/19 03:02 06/04/19 03:02 06/04/19 06/04/19 03:02 03:02 WBC 7.7 RBC 2.75 L Hgb 8.4 L Hct 25.1 L MCV 91 MCH 30.5 MCHC 33.4 RDW 17.9 H Plt Count 172 Seg Neutrophils % 82.4 H Lymphocytes % 6.9 L Monocytes % 8.4 Eosinophils % 1.7 Basophils % 0.6 Absolute Neutrophils 6.4 Absolute Lymphocytes 0.5 Absolute Monocytes 0.6 Absolute Eosinophils 0.1 Absolute Basophils 0.0 Sodium 131.6 L Potassium 4.4 Chloride 90 L Carbon Dioxide 37 H Anion Gap 5 BUN 29 H Creatinine 1.08 Est GFR ( Amer) > 60 Est GFR (Non-Af Amer) > 60 Glucose 120 H Calcium 9.2 05/23/19 05/24/19 05/24/19 23:10 01:50 04:10 Creatine Kinase 278 H CK-MB (CK-2) Troponin I 0.129 0.186 NT-Pro-B Natriuret Pep 3970 H 05/24/19 05/24/19 05/24/19 04:10 10:15 10:15 Creatine Kinase 249 H CK-MB (CK-2) 0.77 0.94 Troponin I 0.208 0.148 NT-Pro-B Natriuret Pep 05/24/19 05/24/19 16:30 16:30 Creatine Kinase 198 H CK-MB (CK-2) 1.01 Troponin I 0.101 NT-Pro-B Natriuret Pep Impressions: Head CT 05/23/19 23:26 IMPRESSION: No acute intracranial abnormality. Chest CT 05/24/19 00:00 IMPRESSION: 1. Overall, no significant change when compared to the prior study performed on 05/19/2019. 2. Bilateral pleural calcification and pleural thickening which may be due to underlying asbestos-related pleural disease. 3. Patchy bibasilar opacification likely due to scarring and/or atelectasis. No new infiltrate is identified since the prior study. 4. 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 There is also cardiomegaly with marked left atrial enlargement. 5. Partially calcified mediastinal and hilar lymph nodes. 6. Hyperinflation of the lungs. Venous Doppler Study 06/01/19 08:13 IMPRESSION: NO EVIDENCE DVT OR SVT IN EITHER LEG. Chest X-Ray 06/03/19 00:00 IMPRESSION: Mild residual pulmonary edema with improvement. Cardiomegaly. Small pleural effusions. Assessment & Plan - Diagnosis (1) Sepsis Qualifiers: Sepsis type: sepsis due to unspecified organism Qualified Code(s): A41.9 - Sepsis, unspecified organism Is this a current diagnosis for this admission?: Yes Plan: Currently resolved (2) Acute kidney injury Is this a current diagnosis for this admission?: Yes Plan: Continues to monitor BUN and creatinine (3) Altered mental status Qualifiers: Altered mental status type: unspecified Qualified Code(s): R41.82 - Altered mental status, unspecified Is this a current diagnosis for this admission?: Yes (4) Elevated troponin Is this a current diagnosis for this admission?: Yes (5) Hypotension Qualifiers: Hypotension type: unspecified hypotension type Qualified Code(s): I95.9 - Hypotension, unspecified Is this a current diagnosis for this admission?: Yes Plan: Because of the patient was started on the Lasix drip no other medications put in the ICU intubated to control the blood pressures may be required a pressure as per discussed with the cardiology (6) Interstitial lung disease Is this a current diagnosis for this admission?: Yes Plan: Follow with the pulmonary (7) Pneumonia Qualifiers: Pneumonia type: due to unspecified organism Laterality: bilateral Lung location: unspecified part of lung Qualified Code(s): J18.9 - Pneumonia, unspecified organism Is this a current diagnosis for this admission?: Yes Plan: Continues to IV antibiotic (8) Unintentional weight loss Is this a current diagnosis for this admission?: Yes (9) Hemoptysis Is this a current diagnosis for this admission?: Yes (10) Leg edema Is this a current diagnosis for this admission?: Yes (11) Hematuria Qualifiers: Hematuria type: unspecified type Qualified Code(s): R31.9 - Hematuria, unspecified Is this a current diagnosis for this admission?: Yes Plan: As per discussed with the cardiology patient with pulmonary hypertension's with some right-sided heart failure patient is currently put in the ICU started on Lasix drip some other medications Also have a chronic lymphedema due to the ongoing chronic swelling - Time Time Spent with patient: 25-34 minutes Medications reviewed and adjusted accordingly: Yes Anticipated discharge: SNF Within: Other - Plan Summary Plan Summary: Very extensive discussions with the patient's cardiology pulmonary and discussed with the patient's family regarding the patient's current conditions with the poor prognosis
[2019-06-04] MEDS: TAMSULOSIN HCL 0.4 MG CAP.SR.24H PO SCH (16:34)
--- NOTE | 2019-06-04 20:48 | Progress Note ---
Provider Note Provider Note: CARDIOLOGY PROGRESS NOTE by Dr. Starla Mcadams on 06/04/2019. SUBJECTIVE: The patient continues to have shortness of breath at rest and orthopnea. He continues to be in atrial fibrillation. There is no ventricular arrhythmia seen. There is no chest pain or discomfort. There is no TIA CVA symptoms. He still is swollen in both lower extremities and in the scrotal area which is significant. The patient is leaking around the Saba and hence true urine output is not being able to be accurately recorded. There is also in view of the very swollen penis and swollen urethra it is difficult to reinsert another Saba. Will attempt again tomorrow morning. This is in light of the fact that we do not have any urologist in this hospital. Although there is no bleeding on Eliquis, the patient hemoglobin is 8.4. This may be due to hemodilution. PHYSICAL EXAMINATION: The patient appears to be chronically ill and very malnourished. Selected Entries 06/04/19 16:00 Temperature 98.2 F Temperature Oral Source Pulse Rate 111 H Respiratory 18 Rate Blood Pressure 109/72 [Right Upper Arm] Blood Pressure 84 Mean [Right Upper Arm] O2 Sat by Pulse 97 Oximetry Oxygen Delivery Nasal Cannula Method ( includes room air) Head: Is atraumatic normocephalic. EYES: Pupils equal round regular reactive to light and accommodation. There is mild conjunctival pallor. IS NO SCLERAL ICTERUS. ENT is negative. NECK is supple. There is JVD present. Carotids are equal there is no bruits. There is no lymphadenopathy. There is no goiter there is no accessory muscle respiration use. LUNGS: There is a few scattered rhonchi there is diminished air entry and prolonged expiration. On percussion there is hyperresonance. There is no rales of CHF. HEART: S1-S2 is heard. S1 is of variable intensity. There is no S3 gallop. There is no S4 gallop. There is systolic murmur left sternal border and the apex there is no rub. ABDOMEN: Soft. There is no hepatospleno megaly bowel sounds well. Extremities femorals are difficult to palpate femorals are deep there is 3-4+ edema bilaterally there is severe scrotal and penile edema. Leg pulses are difficult to palpate. There is chronic venous stasis dermatitis changes there is no DVT or cellulitis. 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 Oriented x3 with no focal deficit. PSYCHIATRIC: The patient judgment and insight are intact. He does not appear to be agitated or anxious. Labs- All tests 24 hr 05/24/19 06/04/19 06/04/19 16:30 03:02 03:02 WBC 7.7 RBC 2.75 L Hgb 8.4 L Hct 25.1 L MCV 91 MCH 30.5 MCHC 33.4 RDW 17.9 H Plt Count 172 Seg Neutrophils % 82.4 H Lymphocytes % 6.9 L Monocytes % 8.4 Eosinophils % 1.7 Basophils % 0.6 Absolute Neutrophils 6.4 Absolute Lymphocytes 0.5 Absolute Monocytes 0.6 Absolute Eosinophils 0.1 Absolute Basophils 0.0 Sodium 131.6 L Potassium 4.4 Chloride 90 L Carbon Dioxide 37 H Anion Gap 5 BUN 29 H Creatinine 1.08 Est GFR ( Amer) > 60 Est GFR (Non-Af Amer) > 60 Glucose 120 H Calcium 9.2 TB Gold In Tube Comment Cancelled TB Test (QFT) Gold Plus Cancelled TB (QFT) Incubation Cancelled TB Test (QFT) Mitogen Cancelled TB Test (QFT) Ag 1 Cancelled TB Test (QFT) Ag 2 Cancelled TB Test TB - Nil Cancelled Chest X-Ray 05/23/19 23:09 IMPRESSION: Patchy bilateral opacities may relate to developing pneumonia. Head CT 05/23/19 23:26 IMPRESSION: No acute intracranial abnormality. Chest CT 05/24/19 00:00 IMPRESSION: 1. Overall, no significant change when compared to the prior study performed on 05/19/2019. 2. Bilateral pleural calcification and pleural thickening which may be due to underlying asbestos-related pleural disease. 3. Patchy bibasilar opacification likely due to scarring and/or atelectasis. No new infiltrate is identified since the prior study. 4. 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 There is also cardiomegaly with marked left atrial enlargement. 5. Partially calcified mediastinal and hilar lymph nodes. 6. Hyperinflation of the lungs. Chest X-Ray 05/25/19 06:00 IMPRESSION: No interval change. Chest X-Ray 05/26/19 06:00 IMPRESSION: Stable chest with persistent patchy interstitial and alveolar opacities, likely edema although infection is not excluded. Stable small bilateral effusions. Venous Doppler Study 06/01/19 08:13 IMPRESSION: NO EVIDENCE DVT OR SVT IN EITHER LEG. Chest X-Ray 06/03/19 00:00 IMPRESSION: Mild residual pulmonary edema with improvement. Cardiomegaly. Small pleural effusions. Patient's 24-hour intake is 761 mL. 24-hour output is 1550 mL. IMPRESSION: 1. Right heart failure secondary to severe pulmonary edema. 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 Continue the patient on IV Lasix and continue the patient on milrinone. Not much improvement in the form of urine output. Hence we will add Levophed at 2 mcg/min. The patient may need a replacement of the Saba for accurate urine output. 2. Chronic obstructive pulmonary disease: At present seems to be at baseline. Continue anti-COPD medication. .3.Atrial Fibrillation: Continue current medication. Continue Eliquis. But in view of the patient's anemia would be cautious. 4. Interstitial lung disease with pneumoconiosis 5. Severe pulmonary hypertension causing right heart failure. Continue the patient on milrinone infusion, Lasix drip and Levophed. The patient has pleural plaquing's, will see if the patient also has plaques in his pericardium with pericardial calcification. This raises the possibility of constrictive pericarditis. The patient will need a right and left heart catheterization for diagnosis of this. This probably should be done at a tertiary care center. At present the patient's physical condition is not very conducive for any invasive procedures. 6. Anemia most likely secondary to hemodilution. But will get stool occult blood serially. Medications reviewed. Medications adjusted the patient's inotropic drips have been adjusted by me. Medical decision making is of high complexity. Management plan discussed with attending physician on the case. Discussed with the patient patient's . I have stressed my concern that the patient is not making any adequate improvement. Note that the patient is DNR. His is his surrogate healthcare decision maker. 50 minutes spent on this patient with more than 50% of time spent in direct patient care. Will follow.
[2019-06-04] MEDS: NORMAL SALINE 250 ML with FUROSEMIDE 250 MG IV PRN ×2 (21:18)
[2019-06-04] MEDS ORDERED: FLECAINIDE ACETATE 100 MG TABLET ONE (22:20)
[2019-06-05] MEDS: OXYCODONE HCL IR 5 MG TABLET PO PRN (02:59)
[2019-06-05 06:36] LABS: ANION GAP 8 (5-19); BLOOD UREA NITROGEN 33 mg/dL (7-20); CALCIUM 9.1 mg/dL (8.4-10.2); CARBON DIOXIDE 35 mmol/L (22-30); CHLORIDE 88 mmol/L (98-107); GLUCOSE 102 mg/dL (75-110); POTASSIUM 4.2 mmol/L (3.6-5.0)
[2019-06-05 07:45] LABS: ABSOLUTE BASOPHILS # (AUTO) 0.1 10^3/uL (0.0-0.2); ABSOLUTE EOSINOPHILS # (AUTO) 0.1 10^3/uL (0.0-0.6); ABSOLUTE LYMPHOCYTES (AUTO) 0.6 10^3/uL (0.5-4.7); ABSOLUTE MONOCYTES (AUTO) 0.8 10^3/uL (0.1-1.4); ABSOLUTE NEUT (AUTO) 6.9 10^3/uL (1.7-8.2); BASOPHILS % (AUTO) 0.8 % (0-2); EOSINOPHILS % (AUTO) 1.3 % (0-6); HEMATOCRIT 24.3 % (37.9-51.0); HEMOGLOBIN 8.2 g/dL (13.5-17.0); MEAN CORPUSCULAR HEMOGLOBIN 30.6 pg (27.0-33.4); MEAN CORPUSCULAR HGB CONC 33.7 g/dL (32.0-36.0); MEAN CORPUSCULAR VOLUME 91 fl (80-97); MONOCYTES % (AUTO) 9.5 % (3-13); PLATELET COUNT 174 10^3/uL (150-450); RED BLOOD COUNT 2.67 10^6/uL (4.35-5.55); RED CELL DISTRIBUTION WIDTH 18.3 % (11.5-14.0); SEGMENTED NEUTROPHILS % (AUTO) 81.4 % (42-78); TOTAL CELLS COUNTED % (AUTO) 100 %; WHITE BLOOD COUNT 8.5 10^3/uL (4.0-10.5)
[2019-06-05] MEDS: MILRINONE LACTATE/D5W 20 MG/100 ML RTUINJ IV PRN (07:47)
--- NOTE | 2019-06-05 09:43 | PDOC TRANSFER SUMMARY ---
General Admission Date/PCP: 05/24/19 04:11 PEÑA OLIVER MD Transfer Date: 06/05/19 Accepting Facility: [facility] Resuscitation Status: Do Not Resuscitate - Transfer Diagnosis (1) Pulmonary hypertension Is this a current diagnosis for this admission?: Yes Diagnosis Summary: Patient's right ventricular systolic pressure is 60 and according to the cardiology patients have a severe pulmonary hypertension to the ongoing COPD patients need a further evaluations with the right-sided heart failure pulmonary hypertension's (2) Right-sided heart failure Is this a current diagnosis for this admission?: Yes Diagnosis Summary: Patient is already in the IV Lasix drips and IV Primiron And IV LevophedPer cardiology (3) Sepsis Is this a current diagnosis for this admission?: Yes Diagnosis Summary: Currently all resolved (4) Acute kidney injury Is this a current diagnosis for this admission?: Yes Diagnosis Summary: Currently all stable (5) Altered mental status Is this a current diagnosis for this admission?: Yes (6) Elevated troponin Is this a current diagnosis for this admission?: Yes Diagnosis Summary: Need further cardiac evaluations most likely from the sepsis per cardiology (7) Hypotension Is this a current diagnosis for this admission?: Yes Diagnosis Summary: Currently on the levo drip (8) Interstitial lung disease Is this a current diagnosis for this admission?: Yes Diagnosis Summary: Need outpatients bronchoscopies (9) Pneumonia Is this a current diagnosis for this admission?: Yes Diagnosis Summary: Currently all resolved (10) Unintentional weight loss Is this a current diagnosis for this admission?: Yes (11) Hemoptysis Is this a current diagnosis for this admission?: Yes Diagnosis Summary: Currently all resolved (12) Leg edema Is this a current diagnosis for this admission?: Yes (13) Hematuria Is this a current diagnosis for this admission?: Yes - Transfer Medications Home Medications: Apixaban [Eliquis 5 mg Tablet] 5 mg PO BID 05/24/19 Cholecalciferol (Vitamin D3) [D3-2000] 2,000 unit PO DAILY 05/24/19 Flecainide Acetate [Tambocor 100 Mg Tablet] 50 mg PO Q12H 05/24/19 Furosemide [Lasix 40 mg Tablet] 40 mg PO BID 05/24/19 Metolazone [Zaroxolyn 5 Mg Tablet] 5 mg PO BID 05/24/19 Metoprolol Succinate [Toprol Xl 25 mg Tab.sr] 12.5 mg PO DAILY 05/24/19 Omeprazole 40 mg PO DAILY 05/24/19 Potassium Chloride [Klor-Con M20] 40 meq PO BID 05/24/19 Transfer Medications: Current Medications Acetaminophen (Tylenol 325 Mg Tablet) 650 mg PO Q4HP PRN PRN Reason: PAIN/FEVER Stop: 07/01/19 08:19 Last Admin: 06/03/19 13:40 Dose: 650 mg Documented by: Apixaban (Eliquis 5 Mg Tablet) 5 mg PO Q12 [facility] Stop: 06/25/19 21:59 Last Admin: 06/04/19 21:17 Dose: 5 mg Documented by: Flecainide Acetate (Tambocor 100 Mg Tablet) 50 mg PO Q12 [facility] Stop: 06/24/19 09:59 Last Admin: 06/04/19 22:24 Dose: 50 mg Documented by: Heparin Sodium (Porcine) (Heparin Flush 10 Unit/Ml 5 Ml Disp.Syrg) 30 unit IV Q8 [facility] Stop: 06/24/19 13:59 Last Admin: 06/05/19 06:06 Dose: Not Given Documented by: Heparin Sodium (Porcine) (Heparin Flush 10 Unit/Ml 5 Ml Disp.Syrg) 30 unit IV .AFTER EACH USE PRN PRN Reason: AFTER EACH INTERMITTENT USE Stop: 06/24/19 13:59 Furosemide 250 mg/ Sodium (Chloride) 250 mls @ 3 mls/hr IV CONTINUOUS PRN PRN Reason: THIS MED IS NOT "PRN" Stop: 07/03/19 17:59 Last Admin: 06/04/19 21:18 Dose: 3 mg/hr, 3 mls/hr Documented by: Milrinone Lactate/Dextrose (Primacor Rtu 20 Mg-D5w 100 Ml Premix Bag) 20 mg in 100 mls @ 0 mls/hr IV CONTINUOUS PRN; Protocol PRN Reason: THIS MED IS NOT "PRN" Stop: 07/03/19 17:14 Last Admin: 06/05/19 07:47 Dose: 9.64 mls/hr Documented by: Norepinephrine Bitartrate 4 mg (/ Dextrose) 254 mls @ 0 mls/hr IV CONTINUOUS PRN; Protocol PRN Reason: THIS MED IS NOT "PRN" Stop: 07/04/19 10:14 Last Admin: 06/04/19 10:30 Dose: 2 mcg/min, 7.62 mls/hr Documented by: Metolazone (Zaroxolyn 2.5 Mg Tablet) 2.5 mg PO BID [facility] Stop: 07/03/19 09:59 Last Admin: 06/04/19 21:16 Dose: 2.5 mg Documented by: Midodrine (Proamatine 5 Mg Tablet) 5 mg PO TID [facility] Stop: 06/25/19 18:29 Last Admin: 06/04/19 17:49 Dose: 5 mg Documented by: Oxycodone HCl (Oxy-Ir 5 Mg Tablet) 2.5 mg PO Q6HP PRN PRN Reason: PAIN Stop: 06/09/19 11:05 Last Admin: 06/05/19 02:59 Dose: 2.5 mg Documented by: Pantoprazole Sodium (Protonix [address] Tablet) 40 mg PO DAILY [facility] Stop: 06/24/19 10:59 Last Admin: 06/04/19 09:30 Dose: 40 mg Documented by: Sodium Chloride (Saline Flush 2.5 Ml Monoject Prefil Syrin) 2.5 ml IV Q8 [facility] Stop: 06/23/19 05:59 Last Admin: 06/05/19 06:06 Dose: Not Given Documented by: Tamsulosin HCl (Flomax 0.4 Mg Cap.Sr) 0.4 mg PO ACSUPPER [facility] Stop: 07/01/19 15:59 Last Admin: 06/04/19 16:34 Dose: 0.4 mg Documented by: - Allergies Allergies/Adverse Reactions: tramadol Allergy (Verified 05/19/19 15:45) VOMITING Hospital Course Hospital Course: This 64-year-old male fairly new patient to the clinic came to the emergency department with a complaint of hemoptysis and short of breath and patient's blood pressure was very low her and patient's white count is elevated in patients diagnosed with the pneumonia and septic shock on 05/23 And patient was put in the intensive care units start and pressure and antibiotics and seen by the pulmonary Patient was on Eliquis due to the ongoing chronic A. fib and a heart failure Patient also renal failure on the admissions seen by the nephrology Patient's response very well with the IV fluid and the IV antibiotic Patient's Eliquis was restarted and patient's Lasix is also restarted Patient is also started developing a lot of swelling in the lower extremities which patient already have it before and evaluated by the vascular surgery and suggest nothing can be offer much Patient's lower extremity swelling is more worse and developing more scrotal swelling Patient's started on IV Lasix drip because patient's blood pressure was running in the lower end in the cardiology was consulted and echocardiogram and suggest patient have a right-sided heart failure and put in the ICU Since last 3 days patient on a Lasix drip and all the medications still not getting better patients in and out is difficult to measure due to the leaking of the catheter Patient have a history of asbestos exposure in the past Patient have a chronic lymphedema type of the swelling in the lower extremity according to the patient and the with ongoing problem not getting better since last several months At this point patient'sNot getting better and pretty much need a further evaluation and tertiary center for pulmonary hypertension's right-sided heart failure and further this chronic swelling Physical Exam Vital Signs: Temp Pulse Resp BP Pulse Ox 97.6 F 114 H 21 H 95/61 L 99 06/05/19 08:00 06/05/19 08:20 06/05/19 08:00 06/05/19 08:00 06/05/19 08:00 Intake & Output 06/04/19 06/05/19 06/06/19 06:59 06:59 06:59 Intake Total 761 278 100 Output Total 1550 1495 125 Balance -789 -1217 -25 Weight 86.6 kg 89 kg General appearance: PRESENT: no acute distress, well-developed, well-nourished Head exam: PRESENT: atraumatic, normocephalic Eye exam: PRESENT: conjunctiva pink, EOMI, PERRLA. ABSENT: scleral icterus Ear exam: PRESENT: normal external ear exam Mouth exam: PRESENT: moist, tongue midline Neck exam: ABSENT: carotid bruit, JVD, lymphadenopathy, thyromegaly Respiratory exam: PRESENT: clear to auscultation joe. ABSENT: rales, rhonchi, wheezes Cardiovascular exam: PRESENT: RRR. ABSENT: diastolic murmur, rubs, systolic murmur Pulses: PRESENT: normal dorsalis pedis pul Vascular exam: PRESENT: normal capillary refill GI/Abdominal exam: PRESENT: normal bowel sounds, soft. ABSENT: distended, guarding, mass, organolmegaly, rebound, tenderness Rectal exam: PRESENT: deferred Extremities exam: PRESENT: full ROM, pedal edema, +2 edema. ABSENT: calf tenderness, clubbing Neurological exam: PRESENT: alert, awake, oriented to person, oriented to place, oriented to time, oriented to situation, CN II-XII grossly intact. ABSENT: motor sensory deficit Psychiatric exam: PRESENT: appropriate affect, normal mood. ABSENT: homicidal ideation, suicidal ideation Skin exam: PRESENT: dry, intact, warm. ABSENT: cyanosis, rash Results Laboratory Results: 06/05/19 07:26 06/05/19 04:35 06/05/19 06/05/19 04:35 07:26 WBC 8.5 RBC 2.67 L Hgb 8.2 L Hct 24.3 L MCV 91 MCH 30.6 MCHC 33.7 RDW 18.3 H Plt Count 174 Seg Neutrophils % 81.4 H Lymphocytes % 7.0 L Monocytes % 9.5 Eosinophils % 1.3 Basophils % 0.8 Absolute Neutrophils 6.9 Absolute Lymphocytes 0.6 Absolute Monocytes 0.8 Absolute Eosinophils 0.1 Absolute Basophils 0.1 Sodium 130.8 L Potassium 4.2 Chloride 88 L Carbon Dioxide 35 H Anion Gap 8 BUN 33 H Creatinine 0.98 Est GFR ( Amer) > 60 Est GFR (Non-Af Amer) > 60 Glucose 102 Calcium 9.1 Magnesium 1.7 05/23/19 05/24/19 05/24/19 23:10 01:50 04:10 Creatine Kinase 278 H CK-MB (CK-2) Troponin I 0.129 0.186 NT-Pro-B Natriuret Pep 3970 H 05/24/19 05/24/19 05/24/19 04:10 10:15 10:15 Creatine Kinase 249 H CK-MB (CK-2) 0.77 0.94 Troponin I 0.208 0.148 NT-Pro-B Natriuret Pep 05/24/19 05/24/19 16:30 16:30 Creatine Kinase 198 H CK-MB (CK-2) 1.01 Troponin I 0.101 NT-Pro-B Natriuret Pep Impressions: Head CT 05/23/19 23:26 IMPRESSION: No acute intracranial abnormality. Chest CT 05/24/19 00:00 IMPRESSION: 1. Overall, no significant change when compared to the prior study performed on 05/19/2019. 2. Bilateral pleural calcification and pleural thickening which may be due to underlying asbestos-related pleural disease. 3. Patchy bibasilar opacification likely due to scarring and/or atelectasis. No new infiltrate is identified since the prior study. 4. 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 There is also cardiomegaly with marked left atrial enlargement. 5. Partially calcified mediastinal and hilar lymph nodes. 6. Hyperinflation of the lungs. Venous Doppler Study 06/01/19 08:13 IMPRESSION: NO EVIDENCE DVT OR SVT IN EITHER LEG. Chest X-Ray 06/03/19 00:00 IMPRESSION: Mild residual pulmonary edema with improvement. Cardiomegaly. Small pleural effusions. Plan Time Spent: Greater than 30 Minutes - Patient is transferred to the tertiary center for further evaluations for right-sided heart failure pulmonary hypertension some ongoing chronic swelling in the lower extremity and the scrotal swelling
[2019-06-05] MEDS: PANTOPRAZOLE SODIUM 40 MG TABLET.DR PO SCH (10:27)
[2019-06-05] MEDS: APIXABAN 5 MG TABLET PO SCH (10:27)
[2019-06-05] MEDS: METOLAZONE 2.5 MG TABLET PO SCH (10:28)
[2019-06-05] MEDS: MIDODRINE HCL 5 MG TABLET PO SCH (10:28)
[2019-06-05] MEDS: FLECAINIDE ACETATE 100 MG TABLET PO SCH (10:29)
[2019-06-05] MEDS: DEXTROSE 5%-WATER 250 ML with NOREPINEPHRINE BITARTRATE 4 MG IV PRN ×2 (10:39)
[2019-06-05 10:56] VITALS: BP 79/63
--- NOTE | 2019-06-05 12:39 | RADIOLOGY REPORT (SQ) ---
EXAM DESCRIPTION: CT ABD/PELVIS NO ORAL OR IV COMPLETED DATE/TIME: 06/05/2019 10:18 am REASON FOR STUDY: Increased scrotal swelling COMPARISON: 05/24/2019 TECHNIQUE: CT scan of the abdomen and pelvis performed without intravenous or oral contrast. Images reviewed with lung, soft tissue, and bone windows. Reconstructed coronal and sagittal MPR images revi ewed. All images stored on PACS. All CT scanners at this facility use dose modulation, iterative reconstruction, and/or weight based d osing when appropriate to reduce radiation dose to as low as reasonably achievable (ALARA). [facility]: Dose Right [facility]: CareDose [facility]: Dose Right [facility]: Teradose 4D [facility]: Smart [employer] RADIATION DOSE: CT Rad equipment meets quality standard of care and radiation dose reduction techniq ues were employed. CTDIvol: 10.5 mGy. DLP: 573 mGy-cm.mGy. LIMITATIONS: None. FINDINGS: LOWER CHEST: Extensive pericardial calcifications, similar to prior. Bilateral lower lobe irregular consolidation with small bilateral pleural effusions. Additional areas of basilar predomi nant interlobular septal thickening and ground-glass attenuation. There is bilateral pleural calcifi cations and thickening, similar to prior NON-CONTRASTED LIVER, SPLEEN, ADRENALS: Evaluation limited by lack of IV contrast. No identified sign ificant masses. PANCREAS: No masses. No peripancreatic inflammatory changes. GALLBLADDER: No identified stones by CT criteria. No inflammatory changes to suggest cholecystitis. RIGHT KIDNEY AND URETER: No suspicious masses. Assessment limited by lack of IV contrast. No signif icant calcifications. No hydronephrosis or hydroureter. LEFT KIDNEY AND URETER: No suspicious masses. Assessment limited by lack of IV contrast. No signifi cant calcifications. No hydronephrosis or hydroureter. AORTA AND RETROPERITONEUM: Aortoiliac atherosclerosis. No retroperitoneal hemorrhage. Shotty lymph nodes without discrete adenopathy. BOWEL AND PERITONEAL CAVITY: No evidence of intestinal obstruction. No focal bowel wall thickening. Formed stool throughout the colon. APPENDIX: Not visualized. PELVIS, BLADDER, AND ABDOMINAL WALL:Saba catheter within the bladder lumen. No discrete pelvic mass or adenopathy. Anasarca. BONES: No acute bony abnormality. Lucent lesions within the L3 vertebral endplates, likely Schmorl's nodes. OTHER: No other significant finding. IMPRESSION: 1. Enlarged heart with likely interstitial edema and small bilateral effusions. Extens lauri pericardial calcifications may contribute to constrictive cardiac failure. Bibasilar patchy cons olidation, possibly atelectasis or infection. 2. Grossly stable extensive pericardial calcifications with irregular bilateral pleural calcificatio ns possibly related to prior asbestos exposure. 3. Diffuse anasarca. 4. No other evidence of acute intra-abdominal/pelvic process. COMMENT: Quality ID # [id number]: Final reports with documentation of one or more dose reduction techniques (e.g., Automated exposure control, adjustment of the mA and/or kV according to patient size, use of iterative reconstruction technique) TECHNICAL DOCUMENTATION: JOB ID: [id number] [employer]- All Rights Reserved Reading location - IP/workstation name: [email or web address]
--- NOTE | 2019-06-05 21:03 | Progress Note ---
Provider Note Provider Note: CARDIOLOGY PROGRESS NOTE by Dr. Starla Mcadams on 06/05/2019. SUBJECTIVE: The patient continues to be short of breath and I have orthopnea. He looks chronically ill and appears to be worse off than before. He still has urine leaking around his Saba catheter. The patient continues to be in atrial fibrillation with a ventricular response in the 90s 200s. There is no TIA CVA symptoms. There is no bleeding on Eliquis. There is no ventricular arrhythmias on current inotropic infusion. Physical EXAMINATION: The patient appears to be chronically ill and malnourished. Selected Entries 06/05/19 06/05/19 06/05/19 10:00 10:20 10:51 Temperature 97.6 F Temperature Core Source Pulse Rate 106 H Respiratory 15 Rate Blood Pressure 94/58 L Blood Pressure 70 Mean O2 Sat by Pulse 95 Oximetry Oxygen Delivery Nasal Cannula Method ( includes room air) Oxygen Flow 4.5 Rate Head: Is atraumatic normocephalic. EYES: Pupils equal round regular reactive to light and accommodation. There is mild conjunctival pallor. IS NO SCLERAL ICTERUS. ENT is negative. NECK is supple. There is JVD present. Carotids are equal there is no bruits. There is no lymphadenopathy. There is no goiter there is no accessory muscle respiration use. LUNGS: There is a few scattered rhonchi there is diminished air entry and prolonged expiration. On percussion there is hyperresonance. There is no rales of CHF. HEART: S1-S2 is heard. S1 is of variable intensity. There is no S3 gallop. There is no S4 gallop. There is systolic murmur left sternal border and the apex there is no rub. ABDOMEN: Soft. There is no hepatospleno megaly bowel sounds well. Extremities femorals are difficult to palpate femorals are deep there is 3-4+ edema bilaterally there is severe scrotal and penile edema. Leg pulses are difficult to palpate. There is chronic venous stasis dermatitis changes there is no DVT or cellulitis. CLOTH PICKER: The patient is conscious awake slightly drowsy. Oriented x3 with no focal deficit. PSYCHIATRIC: The patient judgment and insight are intact. He does not appear to be agitated or anxious. Labs- All tests 24 hr 06/05/19 06/05/19 04:35 07:26 WBC 8.5 RBC 2.67 L Hgb 8.2 L Hct 24.3 L MCV 91 MCH 30.6 MCHC 33.7 RDW 18.3 H Plt Count 174 Seg Neutrophils % 81.4 H Lymphocytes % 7.0 L Monocytes % 9.5 Eosinophils % 1.3 Basophils % 0.8 Absolute Neutrophils 6.9 Absolute Lymphocytes 0.6 Absolute Monocytes 0.8 Absolute Eosinophils 0.1 Absolute Basophils 0.1 Sodium 130.8 L Potassium 4.2 Chloride 88 L Carbon Dioxide 35 H Anion Gap 8 BUN 33 H Creatinine 0.98 Est GFR ( Amer) > 60 Est GFR (Non-Af Amer) > 60 Glucose 102 Calcium 9.1 Magnesium 1.7 Chest X-Ray 05/23/19 23:09 IMPRESSION: Patchy bilateral opacities may relate to developing pneumonia. Head CT 05/23/19 23:26 IMPRESSION: No acute intracranial abnormality. Chest CT 05/24/19 00:00 IMPRESSION: 1. Overall, no significant change when compared to the prior study performed on 05/19/2019. 2. Bilateral pleural calcification and pleural thickening which may be due to underlying asbestos-related pleural disease. 3. Patchy bibasilar opacification likely due to scarring and/or atelectasis. No new infiltrate is identified since the prior study. 4. 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 There is also cardiomegaly with marked left atrial enlargement. 5. Partially calcified mediastinal and hilar lymph nodes. 6. Hyperinflation of the lungs. Chest X-Ray 05/25/19 06:00 IMPRESSION: No interval change. Chest X-Ray 05/26/19 06:00 IMPRESSION: Stable chest with persistent patchy interstitial and alveolar opacities, likely edema although infection is not excluded. Stable small bilateral effusions. Venous Doppler Study 06/01/19 08:13 IMPRESSION: NO EVIDENCE DVT OR SVT IN EITHER LEG. Chest X-Ray 06/03/19 00:00 IMPRESSION: Mild residual pulmonary edema with improvement. Cardiomegaly. Small pleural effusions. Abdomen/Pelvis CT 06/05/19 00:00 IMPRESSION: 1. Enlarged heart with likely interstitial edema and small bilateral effusions. Extensive pericardial calcifications may contribute to constrictive cardiac failure. Bibasilar patchy consolidation, possibly atelectasis or infection. 2. Grossly stable extensive pericardial calcifications with irregular bilateral pleural calcifications possibly related to prior asbestos exposure. 3. Diffuse anasarca. 4. No other evidence of acute intra-abdominal/pelvic process. Patient 24-hour intake is 278 mL. Output is [address] Freeman and Dr. Rosario, the manager news spoke with patient's and she desires that the patient be transferred to [facility] for further treatment. A bed has already been made and the patient has been accepted in transfer. Hence will continue current treatment and will sign off the case. IMPRESSION: 1. Right heart failure secondary to severe pulmonary edema. 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 Continue the patient on IV Lasix and continue the patient on milrinone. Not much improvement in the form of urine output. Hence we will add Levophed at 2 mcg/min. The patient may need a replacement of the Saba for accurate urine output. 2. Chronic obstructive pulmonary disease: At present seems to be at baseline. Continue anti-COPD medication. .3.Atrial Fibrillation: Continue current medication. Continue Eliquis. But in view of the patient's anemia would be cautious. 4. Interstitial lung disease with pneumoconiosis 5. Severe pulmonary hypertension causing right heart failure. Continue the patient on milrinone infusion, Lasix drip and Levophed. The patient has pleural plaquing's, will see if the patient also has plaques in his pericardium with pericardial calcification. This raises the possibility of constrictive pericarditis. The CAT scan of the abdomen shows that there is significant pericardial calcification. 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 The patient will need a right and left heart catheterization for diagnosis of this. This probably should be done at a tertiary care center. At present the patient's physical condition is not very conducive for any invasive procedures. 6. Anemia most likely secondary to hemodilution. But will get stool occult blood serially. Being transferred to [place]. Hence will sign off.
== END 2019-06-05 11:45 | disposition short-term general hospital (02) | DRG 871 ==
LOC: ER 23:05 → EH 05-24 04:11 → ICU 05-24 05:48 → 3N 05-29 05:35 → 4S 06-02 15:33 → ICU 06-03 16:39
PROVIDERS: ADMIT Family Medicine; ATTEND Family Medicine
PROC: 02HV33Z Insertion of Infusion Device into Superior Vena Cava, Percutaneous Approach (ICD-10-PCS; principal; 2019-05-24)
PROC: B548ZZA Ultrasonography of Superior Vena Cava, Guidance (ICD-10-PCS; 2019-05-24)
DX: A41.9 Sepsis, unspecified organism (principal); J18.9 Pneumonia, unspecified organism; R65.21 Severe sepsis with septic shock; I50.23 Acute on chronic systolic (congestive) heart failure; N17.9 Acute kidney failure, unspecified; R04.2 Hemoptysis; E46 Unspecified protein-calorie malnutrition; Z66 Do not resuscitate; J98.2 Interstitial emphysema; J92.0 Pleural plaque with presence of asbestos; R31.9 Hematuria, unspecified; D64.9 Anemia, unspecified; I48.91 Unspecified atrial fibrillation; I11.0 Hypertensive heart disease with heart failure; I27.20 Pulmonary hypertension, unspecified; R41.82 Altered mental status, unspecified; F17.210 Nicotine dependence, cigarettes, uncomplicated; Z79.01 Long term (current) use of anticoagulants; Z79.899 Other long term (current) drug therapy; Z11.1 Encounter for screening for respiratory tuberculosis; Z68.26 Body mass index [BMI] 26.0-26.9, adult
CPT/HCPCS: 36415; 51702; 70450; 71045; 71250; 74176; 80048; 80053; 80061; 80076; 80307; 81001; 82140; 82150; 82550; 82553; 82803; 82962; 83036; 83605; 83690; 83735; 83880; 84100; 84439; 84443; 84484; 85025; 85027; 85610; 85730; 86480; 87015; 87040; 87070; 87077; 87086; 87116; 87186; 87205; 87206; 93005; 93010; 93306; 93970; 94640; 94660; 96361; 96365; 96367; 96375; 99291; C1751; C1758; J0696; J1642; J1644; J1885; J1940; J1956; J2260; J2543; J2930; J3370; J3490; J7030; J7050; J7060; J7120; J7620; P9047